=== PATIENT | male | born 1955 | race African-American/Black ===

== ENCOUNTER 2016-07-16 08:06 | Emergency (ER) | payer MEDICARE, MEDICAID ==
[~2016-07-16] VITALS: Ht 172.7 cm; Wt 88.5 kg
[~2016-07-16 08:06] MED LIST: APIX5TAB PO; ATOR10TA PO; BRIM5DRO EACHEYE; DORZ10DR11 EACHEYE; LEVO750T21 PO; TRAV5DRO EACHEYE
[2016-07-16] MEDS ORDERED: ASPIRIN 81 MG TAB.CHEW PO ONE (08:30)
[2016-07-16 08:42] LABS: BASOPHILS % (AUTO) 0.6 % (0.0-2.0); DIFF TOTAL % 100 %; EOSINOPHILS # (AUTO) 0.1 /CMM (0.0-0.7); EOSINOPHILS % (AUTO) 2.7 % (0.0-6.0); HEMATOCRIT 40 % (39-51); HEMOGLOBIN 13.1 g/dL (13.5-17.5); MEAN CORPUSCULAR HEMOGLOBIN 26 PG (26.0-33.0); MEAN CORPUSCULAR HGB CONC 33 g/dl (31.0-36.0); MEAN CORPUSCULAR VOLUME 81 fL (80-96); MONOCYTES # (AUTO) 0.9 /CMM (0.1-1.30); MONOCYTES % (AUTO) 17.5 % (2.0-12.0); NEUTROPHILS % (AUTO) 59.2 % (43.0-81.0); PLATELET COUNT (AUTO) 161 /CMM (150-450); RED BLOOD CELL COUNT(AUTO) 4.99 MIL/uL (4.5-6.0); WHITE BLOOD COUNT (AUTO) 5.1 K/uL (4.3-11.0)
[2016-07-16] MEDS ORDERED: ASPIRIN EC 81 MG TABLET.DR PO ONE (08:44)
[2016-07-16] MEDS ORDERED: ASPIRIN 81 MG TAB.CHEW ONE ×2 (08:44→08:47)
[2016-07-16 08:57] LABS: ANION GAP 13 (5-14); CALCIUM, SERUM 9.1 mg/dL (8.5-10.1); CARBON DIOXIDE 27 mmol/L (21-32); CHLORIDE 103 mmol/L (98-107); CREATININE 1.3 mg/dL (0.6-1.3); GFR 68 mL/min (>60); GLUCOSE 134 mg/dL (74-106); POTASSIUM 3.8 mmol/L (3.5-5.1); SODIUM SERUM 139 mmol/L (136-145); UREA NITROGEN, BLOOD 14 mg/dL (7-18)
[2016-07-16 09:00] LABS: INR 0.99 (0.87-1.13); PROTHROMBIN TIME 10.7 SECS (9.5-12.7); TROPONIN I < 0.017 ng/mL (0.00-0.056)
[2016-07-16 09:14] LABS: BAND % (MANUAL) 1 % (0.0-5.0); EOSINOPHILS % (MANUAL) 5 % (0-4); LYMPHOCYTES % (MANUAL) 14 % (16-48)
[2016-07-16 09:15] LABS: ANISOCYTOSIS 1+; PLATELET ESTIMATE ADEQUATE
[2016-07-16 09:29] LABS: ALANINE AMINOTRANSFERASE 75 U/L (12-78); ALBUMIN 3.8 g/dL (3.4-5.0); ASPARTATE AMINOTRANSFERASE 47 U/L (15-37); BILIRUBIN,DIRECT 0.1 mg/dL (0.0-0.2); BILIRUBIN,TOTAL 0.3 mg/dL (0.2-1.0); INDIRECT BILIRUBIN 0.2 mg/dL (0.0-1.1); TOTAL PROTEIN, SERUM 8.2 g/dL (6.4-8.2)
[2016-07-16] MEDS ORDERED: NITROGLYCERIN 0.4 MG/TAB BOTTLE ONE (10:48)
[2016-07-16] MEDS ORDERED: NITROGLYCERIN 0.4 MG/TAB BOTTLE SL ONE (11:00)
[2016-07-16 12:35] VITALS: BP 121/85
== END 2016-07-16 12:36 | disposition home or self-care (01) ==
LOC: ER 08:07
DX: R07.89 Other chest pain (principal); E78.00 Pure hypercholesterolemia, unspecified; I10 Essential (primary) hypertension; Z88.5 Allergy status to narcotic agent; Z91.013 Allergy to seafood; Z91.041 Radiographic dye allergy status
CPT/HCPCS: 36415; 71010; 80048; 80076; 83880; 84484 ×2; 85025; 85730; 93005 ×2; 99285; A4606; Z7610

== ENCOUNTER 2017-04-22 16:47 | Inpatient (IN) | payer MEDICARE, MEDICAID ==
[~2017-04-22] VITALS: Ht 172.7 cm; Wt 87.5 kg
--- NOTE | 2017-04-22 16:47 | NUR ---
L SIDED CP X 45 MIN TOP FLAVOR ATTENDANT RADIATING TO LEFT ARM. GOWNED PT . PLACED ON MONITOR. AWAITING MD ORDER
[2017-04-22 17:27] LABS: BASOPHILS % (AUTO) 0.5 % (0.0-2.0); EOSINOPHILS # (AUTO) 0.2 /CMM (0.0-0.7); EOSINOPHILS % (AUTO) 2.5 % (0.0-6.0); HEMATOCRIT 38 % (39-51); HEMOGLOBIN 12.3 g/dL (13.5-17.5); LYMPHOCYTES # (AUTO) 1.5 /CMM (0.8-4.8); LYMPHOCYTES % (AUTO) 21.7 % (20.0-44.0); MEAN CORPUSCULAR HEMOGLOBIN 28 PG (26.0-33.0); MEAN CORPUSCULAR HGB CONC 33 g/dl (31.0-36.0); MEAN CORPUSCULAR VOLUME 84 fL (80-96); MONOCYTES # (AUTO) 0.7 /CMM (0.1-1.30); NEUTROPHILS # (AUTO) 4.4 /CMM (1.8-8.9); NEUTROPHILS % (AUTO) 64.3 % (43.0-81.0); PLATELET COUNT (AUTO) 178 /CMM (150-450); RDW COEFFICIENT OF VARIATION 19.6 (11.5-15.0); RED BLOOD CELL COUNT(AUTO) 4.45 MIL/uL (4.5-6.0); WHITE BLOOD COUNT (AUTO) 6.8 K/uL (4.3-11.0)
[2017-04-22 17:32] LABS: CALCIUM, SERUM 8.9 mg/dL (8.5-10.1); CARBON DIOXIDE 26 mmol/L (21-32); CHLORIDE 110 mmol/L (98-107); CREATININE 1.1 mg/dL (0.6-1.3); GLUCOSE 123 mg/dL (74-106); POTASSIUM 3.9 mmol/L (3.5-5.1); PROTHROMBIN TIME 10.4 SECS (9.5-12.7); SODIUM SERUM 143 mmol/L (136-145); UREA NITROGEN, BLOOD 21 mg/dL (7-18)
--- NOTE | 2017-04-22 17:39 | NUR ---
FRONT END SOFTWARE ENGINEER AT BEDSIDE
[2017-04-22 17:41] LABS: TROPONIN I < 0.017 ng/mL (0.00-0.056)
--- NOTE | 2017-04-22 18:02 | NUR ---
RFA #22 IV ACCESS.
[2017-04-22] MEDS ORDERED: NITROGLYCERIN PACKET 1 GM PACKET ONE (18:15)
[2017-04-22] MEDS ORDERED: ASPIRIN 325 MG TABLET ONE (18:15)
[2017-04-22] MEDS ORDERED: ASPIRIN 325 MG TABLET PO ONE (18:30)
[2017-04-22] MEDS ORDERED: NITROGLYCERIN PACKET 1 GM PACKET TOP ONE (18:30)
[2017-04-22] MEDS ORDERED: METF500T4 PO (18:30)
--- NOTE | 2017-04-22 18:49 | NUR ---
gave report to [facility] telemetry room 304-[address] thomas
--- NOTE | 2017-04-22 18:55 | NUR ---
REPORT RECEIVED BY NESTOR LINDSEY FOR YURY. REPORT GIVEN TO OFFICE ANALYST PER NESTOR LINDSEY
[2017-04-22] MEDS ORDERED: IV NS 0.9% 1,000 ML IV PRN (19:05)
--- NOTE | 2017-04-22 19:18 | NUR ---
PT TRANSFERRED PER ACLS PROTOCOL TO [facility] BED 304-1
[2017-04-22] MEDS ORDERED: ONDANSETRON HCL/PF 4 MG/2 ML VIAL IVP PRN (19:30)
[2017-04-22] MEDS ORDERED: MAG HYDROX/AL HYDROX/SIMETH 30 ML UDC PO PRN (19:30)
[2017-04-22] MEDS ORDERED: Z GUARD REMEDY 2 OZ OINT TP PRN (19:30)
[2017-04-22] MEDS ORDERED: ZOLPIDEM TARTRATE 5 MG TABLET PO PRN (19:30)
[2017-04-22] MEDS ORDERED: HYDROCODONE/APAP 5/325MG 1 EACH TABLET PO PRN (19:30)
[2017-04-22] MEDS ORDERED: ACETAMINOPHEN 325 MG TABLET PO PRN (19:30)
[2017-04-22] MEDS ORDERED: MAGNESIUM HYDROXIDE 30 ML UDC PO PRN (19:30)
[2017-04-22 20:00] VITALS: BP 128/79
--- NOTE | 2017-04-22 20:00 | NUR ---
BOILING TUB OPERATOR NOTES Patient admitted to MS/Tele unit, palced on scratch polisher, in no apparent distress. Alert, and oriented x4, verbally responsive and able to make needs known. No SOB noted, skin is warm and dry to touch. Patient c/o chest pain radiating to his back and asked for a pain medication. Offered York but patient said he vomits when taking York He asked if he can have Morphine inj because that's what he takes before.. Called Dr Contreras and reported patient's status and Dr Contreras said did not approved Morphine inj and did not give any new orders. Spoke with patient and made aware of Dr Contreras's not ordering York. Charge nurse made aware. Routine admission done. Patient is cooperative with admission interview. Due med given as ordered. All needs attended. Provided a safe and comfortable environment. Will continue to monitor.
[2017-04-22] MEDS: LATANOPROST EYE DROP 0.005% 2.5 ML BOTTLE EACHEYE SCH (23:15)
[2017-04-23] VITALS: BP 131/80
[2017-04-23 04:00] VITALS: BP 113/73
[2017-04-23 06:00] VITALS: BP 129/77
--- NOTE | 2017-04-23 06:08 | NUR ---
RN END OF SHIFT REPORT No significant change in condition. Patient slept comfortably, no c/o chest pain, no SOB observed. All due meds given as ordered. Will continue to moniotr.
[2017-04-23 06:27] LABS: BASOPHILS % (AUTO) 0.6 % (0.0-2.0); EOSINOPHILS # (AUTO) 0.2 /CMM (0.0-0.7); HEMATOCRIT 35 % (39-51); HEMOGLOBIN 11.5 g/dL (13.5-17.5); LYMPHOCYTES # (AUTO) 1.5 /CMM (0.8-4.8); LYMPHOCYTES % (AUTO) 25.5 % (20.0-44.0); MEAN CORPUSCULAR HEMOGLOBIN 28 PG (26.0-33.0); MEAN CORPUSCULAR HGB CONC 33 g/dl (31.0-36.0); MEAN CORPUSCULAR VOLUME 84 fL (80-96); MONOCYTES # (AUTO) 0.8 /CMM (0.1-1.30); MONOCYTES % (AUTO) 12.9 % (2.0-12.0); NEUTROPHILS # (AUTO) 3.4 /CMM (1.8-8.9); PLATELET COUNT (AUTO) 150 /CMM (150-450); RDW COEFFICIENT OF VARIATION 19.4 (11.5-15.0); RED BLOOD CELL COUNT(AUTO) 4.18 MIL/uL (4.5-6.0)
[2017-04-23 06:38] LABS: CALCIUM, SERUM 8.4 mg/dL (8.5-10.1); CARBON DIOXIDE 25 mmol/L (21-32); CHLORIDE 112 mmol/L (98-107); GLUCOSE 134 mg/dL (74-106); MAGNESIUM 1.8 mg/dL (1.8-2.4); PHOSPHORUS 3.4 mg/dL (2.5-4.9); POTASSIUM 3.7 mmol/L (3.5-5.1); SODIUM SERUM 143 mmol/L (136-145); UREA NITROGEN, BLOOD 16 mg/dL (7-18)
--- NOTE | 2017-04-23 06:45 | NUR ---
RN NOTES Patient refused to be reconnected again to his IV fluid after going to the bathroom. Explained risks and benefits, verbalized understanding.
[2017-04-23 06:55] LABS: TROPONIN I < 0.017 ng/mL (0.00-0.056)
--- NOTE | 2017-04-23 07:20 | NUR ---
RN OPEN NOTES RECEIVED REPORT FROM BUSINESS PLANNER NURSE. WILL CONTINUE TO MONITOR AND ASSESS PATIENT THROUGHOUT MY SHIFT
--- NOTE | 2017-04-23 07:50 | NUR ---
DR RUSSELL AT BEDSIDE
[2017-04-23 08:00] VITALS: BP 114/71
--- NOTE | 2017-04-23 08:00 | NUR ---
PATIENT REFUSED TO TURN AND REPOSITION
[2017-04-23] MEDS: APIXABAN 5 MG TABLET PO SCH ×2 (08:16→17:25)
[2017-04-23] MEDS: METFORMIN 500 MG TABLET PO SCH ×2 (08:17→17:25)
[2017-04-23] MEDS: BRIMONIDINE TARTRATE OPHT SOLN 5 ML BOTTLE EACHEYE SCH ×2 (08:18→17:26)
[2017-04-23] MEDS: TIMOLOL MAL/DORZOLAM HCL OPHTH 10 ML BOTTLE EACHEYE SCH ×2 (08:18→17:25)
--- NOTE | 2017-04-23 08:20 | NUR ---
LEXISCAN STRESS TEST ORDERED BY B[facility]ON FOR 04/24N 8AM
[2017-04-23] MEDS: LOSARTAN POTASSIUM 50 MG TABLET PO SCH (08:31)
--- NOTE | 2017-04-23 10:00 | NUR ---
PATIENT REFUSED TO TURN AND REPOSITION Addendum: 04/23/17 at 1812 by ISMAEL COMBS RN WRONG PATIENT
--- NOTE | 2017-04-23 12:30 | NUR ---
PATIENT SIGNED LEXISCAN CONSENT. CONSENT PLACED IN THE CHART
--- NOTE | 2017-04-23 13:50 | NUR ---
DR GONZALES AT BEDSIDE
[2017-04-23 16:00] VITALS: BP 119/75
--- NOTE | 2017-04-23 17:00 | NUR ---
PATIENT REFUSED IV HYDRATION
[2017-04-23] MEDS: ATORVASTATIN 10 MG TABLET PO SCH (17:25)
--- NOTE | 2017-04-23 19:02 | NUR ---
RN CLOSING NOTES PATIENT IS ALERT AND ORIENTED TO NAME, PLACE AND TIME. NO SIGNS AND SYMPTOMS OF DISTRESS. IV SITE IS INTACT AND PATENT. REFUSE IV HYDRATION. BED IN LOW POSITION, LOCKED AND TWO SIDE RAILS ARE UP. CALL LIGHT WITHIN REACH. ALL NURSING CARE PROVIDED. STRESS TEST IN AM, NPO FROM MIDNIGHT. WILL ENDORSE TO PECAN HULLER NURSE
--- NOTE | 2017-04-23 19:25 | NUR ---
TELE/RN NOTES RECEIVED PT. LYING IN BED RESTING. PT. IS EASILY AROUSABLE TO NAME. AWAKE, ALERT AND ORIENTED X4. BREATHING EVEN AND UNLABORED ON ROOM AIR. NO SOB, RESPIRATORY DISTRESS OR COMPLAINTS OF PAIN NOTED AT THIS TIME. PT. WITH EXTERNAL LEAD APPLIER PRESENT AND INTACT. CURRENT RHYTHM = SINUS RHYTHM HR 66. PT. WITH RIGHT FOREARM 22 GAUGE IV SALINE LOCK PRESENT, PATENT AND INTACT. PT. REFUSING IV FLUID HYDRATION AT THIS TIME. PT. STATES HE DRINKS ENOUGH FLUIDS AND DOESN'T NEED THEM. BED LOCKED AND IN LOWEST POSITION, SIDE RAILS UP X2, CALL LIGHT WITHIN REACH, WILL CONTINUE TO MONITOR.
[2017-04-23 20:00] VITALS: BP 112/72
[2017-04-23] MEDS: LATANOPROST EYE DROP 0.005% 2.5 ML BOTTLE EACHEYE SCH (23:04)
--- NOTE | 2017-04-23 23:20 | NUR ---
TELE/RN NOTES PT. REFUSING TROPONIN BLOOD DRAW. PT. HAS NO COMPLAINTS OF CHEST PAIN AT THIS TIME. EDUCATED PT. ON IMPORTANCE OF MONITORING TROPONIN LEVEL. PT. VERBALIZED UNDERSTANDING AND CONTINUES TO REFUSE. WILL CONTINUE TO MONITOR.
[2017-04-24] VITALS: BP 112/69
[2017-04-24 04:00] VITALS: BP 112/74
--- NOTE | 2017-04-24 06:50 | NUR ---
TELE/RN NOTES PT. IS LYING IN BED RESTING. BREATHING EVEN AND UNLABORED ON ROOM AIR. NO SOB, RESPIRATORY DISTRESS OR COMPLAINTS OF PAIN NOTED AT THIS TIME. PT. WITH EXTERNAL MALT LIQUORS SALES SUPERVISOR PRESENT AND INTACT. CURRENT RHYTHM = SINUS RHYTHM HR 72. PT. WITH RIGHT FOREARM 22 GAUGE IV SALINE LOCK PRESENT, PATENT AND INTACT. PT. CONTINUES TO REFUSE IV FLUIDS. PT. REMAINS NPO SINCE MIDNIGHT PENDING STRESS TEST TODAY. ALL PT. NEEDS MET. ALL DUE MEDICATIONS GIVEN. BED LOCKED AND IN LOWEST POSITION, SIDE RAILS UP X2, CALL LIGHT WITHIN REACH, WILL ENDORSE TO DAYSHIFT NURSE FOR CONTINUITY OF CARE.
[2017-04-24 06:56] LABS: CALCIUM, SERUM 8.6 mg/dL (8.5-10.1); CARBON DIOXIDE 23 mmol/L (21-32); CHLORIDE 107 mmol/L (98-107); GLUCOSE 115 mg/dL (74-106); MAGNESIUM 1.8 mg/dL (1.8-2.4); PHOSPHORUS 3.6 mg/dL (2.5-4.9); POTASSIUM 3.8 mmol/L (3.5-5.1); SODIUM SERUM 139 mmol/L (136-145); UREA NITROGEN, BLOOD 14 mg/dL (7-18)
[2017-04-24 06:58] LABS: TROPONIN I < 0.017 ng/mL (0.00-0.056)
--- NOTE | 2017-04-24 07:37 | NUR ---
RN OPEN NOTES RECEIVED REPORT FROM GLASS PROCESSING WORKER NURSE. WILL CONTINUE TO MONITOR AND ASSESS PATIENT DURING MY SHIFT
[2017-04-24 08:00] VITALS: BP 108/76
--- NOTE | 2017-04-24 08:25 | NUR ---
PATIENT IS OFF THE FLOOR FOR STRESS TEST
[2017-04-24] MEDS ORDERED: REGADENOSON 0.4 MG/5 ML DISP.SYRIN IVP ONE (09:00)
--- NOTE | 2017-04-24 09:39 | NUR ---
PATIENT IS BACK TO UNIT FORM STRESS TEST. BREAKFAST FOOD TRAY ORDERED, MEDICATION WILL BE ADMINISTERED
[2017-04-24] MEDS: BRIMONIDINE TARTRATE OPHT SOLN 5 ML BOTTLE EACHEYE SCH ×2 (09:57→17:22)
[2017-04-24] MEDS: TIMOLOL MAL/DORZOLAM HCL OPHTH 10 ML BOTTLE EACHEYE SCH ×2 (09:58→17:22)
[2017-04-24] MEDS: METFORMIN 500 MG TABLET PO SCH ×2 (09:58→17:22)
[2017-04-24] MEDS: APIXABAN 5 MG TABLET PO SCH ×2 (09:58→17:22)
[2017-04-24] MEDS: LOSARTAN POTASSIUM 50 MG TABLET PO SCH (09:59)
[2017-04-24 10:15] LABS: CHOLESTEROL 193 mg/dL (<200); HDL CHOLESTEROL 36 mg/dL (40-60); LDL 102 mg/dL (0-99); TRIGLYCERIDES 253 mg/dL (30-150)
--- NOTE | 2017-04-24 10:42 | NUR ---
PATIENT IS OFF THE FLOOR FOR STEP 2 STRESS TEST
--- NOTE | 2017-04-24 11:12 | NUR ---
PATIENT IS BACK TO THE FLOOR FROM STRESS TEST 2ND STEP
[2017-04-24 16:00] VITALS: BP 110/68
[2017-04-24] MEDS: ATORVASTATIN 10 MG TABLET PO SCH (17:22)
--- NOTE | 2017-04-24 18:46 | NUR ---
RN CLOSING NOTES PATIENT IS ALERT AND ORIENTED TO NAME, PLACE AND TIME. NO SIGNS AND SYMPTOMS OF DISTRESS. IV SITE IS INTACT AND PATENT. BED IN LOW POSITION, LOCKED AND TWO SIDE RAILS ARE UP. CALL LIGHT WITHIN REACH. ALL NURSING CARE PROVIDED. POSSIBLE DC IN AM TO [facility]. WILL ENDORSE TO WEAVING TEACHER NURSE
--- NOTE | 2017-04-24 19:15 | NUR ---
MS/RN NOTES RECEIVED PT. LYING IN BED RESTING. PT. IS EASILY AROUSABLE TO NAME. AWAKE, ALERT AND ORIENTED X4. BREATHING EVEN AND UNLABORED ON ROOM AIR. NO SOB, RESPIRATORY DISTRESS OR COMPLAINTS OF PAIN NOTED AT THIS TIME. PT. WITH RIGHT FOREARM 22 GAUGE IV SALINE LOCK PRESENT, PATENT AND INTACT. PER DAYSHFIT NURSE PT. IS POSSIBLE DC IN AM TO [facility]. BED LOCKED AND IN LOWEST POSITION, SIDE RAILS UP X2, CALL LIGHT WITHIN REACH, WILL CONTINUE TO MONITOR.
[2017-04-24 20:22] VITALS: BP 101/65
[2017-04-24] MEDS: LATANOPROST EYE DROP 0.005% 2.5 ML BOTTLE EACHEYE SCH (21:52)
--- NOTE | 2017-04-25 06:13 | NUR ---
MS/RN NOTES PT. IS LYING IN BED RESTING. BREATHING EVEN AND UNLABORED ON ROOM AIR. NO SOB, RESPIRATORY DISTRESS OR COMPLAINTS OF PAIN NOTED AT THIS TIME AND THROUGHOUT SHIFT. PT. WITH RIGHT FOREARM 22 GAUGE IV SALINE LOCK PRESENT, PATENT AND INTACT. ALL PT. NEEDS MET. ALL DUE MEDICATIONS GIVEN. BED LOCKED AND IN LOWEST POSITION, SIDE RAILS UP X2, CALL LIGHT WITHIN REACH, WILL ENDORSE TO DAYSHIFT NURSE FOR CONTINUITY OF CARE.
--- NOTE | 2017-04-25 07:00 | NUR ---
MS RN Notes Initial: Patient resting in bed. Patient alert oriented x4. Nonlabored breathing on room air. No signs of distress noted. IV site patent and intact. Bed in lowest locked position. Call light within reach. Will continue to monitor
[2017-04-25 08:00] VITALS: BP 110/70
[2017-04-25] MEDS: BRIMONIDINE TARTRATE OPHT SOLN 5 ML BOTTLE EACHEYE SCH (08:44)
[2017-04-25 08:46] VITALS: BP 110/70
[2017-04-25] MEDS: LOSARTAN POTASSIUM 50 MG TABLET PO SCH (08:46)
[2017-04-25] MEDS: APIXABAN 5 MG TABLET PO SCH (08:47)
[2017-04-25] MEDS: METFORMIN 500 MG TABLET PO SCH (08:47)
[2017-04-25] MEDS: TIMOLOL MAL/DORZOLAM HCL OPHTH 10 ML BOTTLE EACHEYE SCH (08:50)
--- NOTE | 2017-04-25 13:46 | NUR ---
RN CLOSING NOTES: PATIENT DISCHARGED TO [facility] PER MD ORDERS. PATIENT STABLE. NON-LABORED BREATHING ON ROOM AIR. PATIENT DENIES CHEST PAIN. NO SIGNS OF DISTRESS. IV ACCESS TAKEN OUT. VALUABLES ACCOUNTED FOR. PNEUMOCOCCAL VACCINE AND FLU VACCINE REFUSED BY PATIENT. ACCORDING TO PATIENT, HE HAS RECEIVED THE PNEUMOCOCCAL VACCINE. DR NEAL APPROVED THAT PATIENT CONTINUES TAKING TAMULOSIN 0.4 MG CAPSULE, 1 TABLET AT BEDTIME, WELL FINASTERIDE 5 MG, 1 TABLET DAILY. MEDICATIONS WRITTEN ON PATIENT'S CURRENT MED LIST. AMBULANCE PICKED UP PATIENT AT 13:20. I WAS UNABLE TO GIVE REPORT BEFORE. CALLED 3 TIMES. HOWEVER, NURSING SENIOR COST ANALYST WAS UNAVAILABLE. SPOKE TO MALTED MILK MASHER WHO WAS AWARE THAT PATIENT IS BEING ADMITTED TO THEIR FACILITY. GAMA, NURSING SENIOR COST ANALYST, JUST CALLED ME. I WAS ABLE TO GIVE REPORT TO HER.
== END 2017-04-25 13:22 | DRG 203 ==
LOC: ER 16:51 → TELE 19:22 → MED 04-24 10:45
PROVIDERS: ADMIT Internal Medicine; ATTEND Internal Medicine
DX: M94.0 Chondrocostal junction syndrome [Tietze] (principal); I82.812 Embolism and thrombosis of superficial veins of left lower extremity; I10 Essential (primary) hypertension; E78.5 Hyperlipidemia, unspecified; D63.8 Anemia in other chronic diseases classified elsewhere; E11.9 Type 2 diabetes mellitus without complications; I25.10 Atherosclerotic heart disease of native coronary artery without angina pectoris; Z86.711 Personal history of pulmonary embolism; E66.9 Obesity, unspecified; Z68.29 Body mass index [BMI] 29.0-29.9, adult; Z95.1 Presence of aortocoronary bypass graft; Z86.718 Personal history of other venous thrombosis and embolism; Z79.01 Long term (current) use of anticoagulants; R52 Pain, unspecified
CPT/HCPCS: 36415; 71010-TC; 80048-TC; 80061-TC; 80305; 83735-TC; 84100-TC; 84484-TC; 85025-TC; 85730-TC; 87081-TC; 93307-TC; 93970-TC; A4606; A9502; G0480; J2785; J7030; J7042; Z7610

== ENCOUNTER 2017-08-31 18:24 | Inpatient (IN) | payer MEDICARE, MEDICAID ==
[~2017-08-31] VITALS: Ht 172.7 cm; Wt 86.6 kg
--- NOTE | 2017-08-31 | NUR ---
RN NOTE RECEIVED PATIENT FROM ER, PATIENT IS ALERT/ORIENTED X 2, ABLE TO COMMUNICATE HIS NEEDS, ADMITTING DX CHEST PAIN, PAIN LEVEL 7/10, MEDS GIVEN AND EFFECTICE, NO RESPIRATORY DISTRESS NOTED, SINUS RYTHM ON THE MONITOR ,PATIENT IS AMBULATORY, IV IN LEFT HAND 20 GAUGE, FLUSHES WELL, NO S/S OF INFECTION/INFILTRATION NOTED, ALL SAFETY MEASURES TAKEN, BED IN THE LOWEST POSITION, CALL LIGHT WITHIN REACH, SIDE RAILS UP X 2, EDUCATED PATIENT ABOUT CALL LIGHT AND CALL IF PATIENT NEEDS TO USE BATHROOM, PATIENT VERBALIZED UNDERSTANDING
[~2017-08-31 18:24] MED LIST changes: -LEVO750T21 PO; +METF500T4 PO
--- NOTE | 2017-08-31 18:24 | NUR ---
A/OX4, PT IS C/O MID AND LEFT SIDED CP RADIATES TO NECK AND LT ARM STARTED 1 HR AGO. PT STATES CHEST FEELS HEAVY AND FEELS LIKE SOMETHING SITTING ON HIS CHEST. PT IS C/O HEADACHE. GOWNED AND PLACED ON CONT MONITORING. VSS, SKIN IS WARM AND NON DIAPHORETOC. RR EVEN AND UNLABORED. ALL NEEDS ARE ATTENDED, KEPT COMFORTABLE. PENDING ER MD EVALUATION
[2017-08-31] MEDS ORDERED: ONDANSETRON HCL/PF 4 MG/2 ML VIAL ONE (18:47)
[2017-08-31] MEDS ORDERED: MORPHINE SULFATE INJ 4 MG/ML DISP.SYRIN ONE ×3 (18:47→20:58)
[2017-08-31] MEDS ORDERED: ASPIRIN 81 MG TAB.CHEW ONE (18:48)
[2017-08-31 18:57] LABS: BASOPHILS # (AUTO) 0.1 /CMM (0.0-0.2); BASOPHILS % (AUTO) 1.1 % (0.0-2.0); EOSINOPHILS # (AUTO) 0.2 /CMM (0.0-0.7); EOSINOPHILS % (AUTO) 2.1 % (0.0-6.0); HEMATOCRIT 45 % (39-51); LYMPHOCYTES # (AUTO) 1.8 /CMM (0.8-4.8); MEAN CORPUSCULAR HEMOGLOBIN 29 PG (26.0-33.0); MEAN CORPUSCULAR HGB CONC 33 g/dl (31.0-36.0); MEAN CORPUSCULAR VOLUME 85 fL (80-96); MONOCYTES # (AUTO) 0.6 /CMM (0.1-1.30); MONOCYTES % (AUTO) 6.6 % (2.0-12.0); NEUTROPHILS # (AUTO) 6.7 /CMM (1.8-8.9); NEUTROPHILS % (AUTO) 71.2 % (43.0-81.0); PLATELET COUNT (AUTO) 173 /CMM (150-450); RDW COEFFICIENT OF VARIATION 15.7 (11.5-15.0); RED BLOOD CELL COUNT(AUTO) 5.28 MIL/uL (4.5-6.0); WHITE BLOOD COUNT (AUTO) 9.4 K/uL (4.3-11.0)
[2017-08-31] MEDS ORDERED: MORPHINE SULFATE INJ 2 MG/ML DISP.SYRIN IV ONE ×2 (19:00→21:00)
[2017-08-31] MEDS ORDERED: ONDANSETRON HCL/PF 4 MG/2 ML VIAL IVP ONE (19:00)
[2017-08-31] MEDS ORDERED: IV NS 0.9% 1,000 ML BAG IV ONE (19:00)
[2017-08-31] MEDS ORDERED: ASPIRIN 81 MG TAB.CHEW PO ONE (19:00)
--- NOTE | 2017-08-31 19:01 | NUR ---
IV ACCESS STARTED. BLOOD DRAWN FOR LABS. MEDICATED ORDERED.
--- NOTE | 2017-08-31 19:05 | NUR ---
RECEIVED REPORT FROM NESTOR MOORE. RADIOLOGY AT BEDSIDE FOR CXR
--- NOTE | 2017-08-31 19:08 | NUR ---
PT STATES HAD PREVIOUS CT WITH CONTRAST AND ALLERGIC TO IODINE. AWARE.
[2017-08-31 19:10] LABS: INR 0.95 (0.85-1.15)
[2017-08-31 19:12] LABS: ALANINE AMINOTRANSFERASE 20 U/L (12-78); ALBUMIN 3.9 g/dL (3.4-5.0); ALKALINE PHOSPHATASE 79 U/L (46-116); ASPARTATE AMINOTRANSFERASE 20 U/L (15-37); BILIRUBIN,DIRECT 0.1 mg/dL (0.0-0.2); BILIRUBIN,TOTAL 0.6 mg/dL (0.2-1.0); CARBON DIOXIDE 23 mmol/L (21-32); CHLORIDE 102 mmol/L (98-107); CREATININE 1.2 mg/dL (0.6-1.3); GLUCOSE 117 mg/dL (74-106); POTASSIUM 4.1 mmol/L (3.5-5.1); SODIUM SERUM 136 mmol/L (136-145); TOTAL PROTEIN, SERUM 8.5 g/dL (6.4-8.2); UREA NITROGEN, BLOOD 16 mg/dL (7-18)
[2017-08-31 19:14] LABS: TROPONIN I < 0.017 ng/mL (0.00-0.056)
--- NOTE | 2017-08-31 19:18 | NUR ---
RONALD FROM RADIOLOGY FOR VQ SCAN PAGED PER RADIOLOGY.
--- NOTE | 2017-08-31 21:45 | NUR ---
PT TO VQ SCAN WITH RADIOLOGY RONALD
--- NOTE | 2017-08-31 22:23 | NUR ---
PT RETURNED FROM VQ SCAN
--- NOTE | 2017-08-31 22:27 | NUR ---
TELE 107 FARZANA
[2017-08-31] MEDS ORDERED: Z GUARD REMEDY 2 OZ OINT TP PRN (23:00)
[2017-08-31] MEDS ORDERED: ONDANSETRON HCL/PF 4 MG/2 ML VIAL IVP PRN (23:00)
[2017-08-31] MEDS ORDERED: NITROGLYCERIN 0.4 MG/TAB BOTTLE SL PRN (23:00)
[2017-08-31] MEDS ORDERED: ACETAMINOPHEN 325 MG TABLET PO PRN (23:00)
[2017-08-31] MEDS ORDERED: MAG HYDROX/AL HYDROX/SIMETH 30 ML UDC PO PRN (23:00)
[2017-08-31] MEDS ORDERED: HYDROCODONE/APAP 5/325MG 1 EACH TABLET PO PRN (23:00)
[2017-08-31] MEDS ORDERED: MAGNESIUM HYDROXIDE 30 ML UDC PO PRN (23:00)
--- NOTE | 2017-08-31 23:08 | NUR ---
REPORT GIVEN TO NESTOR MONTERO ON BEHALD OF NESTOR JIMÉNEZ FOR YURY / BED 107
--- NOTE | 2017-08-31 23:52 | NUR ---
PT TRANSFERRED PER ACLS PROTOCOL.
[2017-09-01] VITALS (9 sets, daily range): BP systolic 100–138; BP diastolic 64–75
[2017-09-01] MEDS ORDERED: MORPHINE SULFATE INJ 4 MG/ML DISP.SYRIN ONE ×2 (00:44→22:26)
[2017-09-01] MEDS: MORPHINE SULFATE INJ 2 MG/ML DISP.SYRIN IV PRN ×2 (01:16→22:38)
--- NOTE | 2017-09-01 01:20 | NUR ---
RN NOTE ADMINISTER MORPHINE 2 MG PER MD ORDER, PHARMAVY VERIFIED, CHARGE NURSE OVERRIDED 4MG, 2MG WAS WASTED, WAS NOT ABLE TO SCAN BECAUSE I WAS SCANNING IT SHOWS 4MG. CHARGE NURSE IS AWARE
[2017-09-01] MEDS ORDERED: DEXTROSE 50%-WATER 50 ML DISP.SYRIN IV PRN (04:00)
[2017-09-01 06:47] LABS: BASOPHILS % (AUTO) 0.5 % (0.0-2.0); EOSINOPHILS # (AUTO) 0.2 /CMM (0.0-0.7); HEMATOCRIT 40 % (39-51); HEMOGLOBIN 13.5 g/dL (13.5-17.5); LYMPHOCYTES # (AUTO) 1.6 /CMM (0.8-4.8); LYMPHOCYTES % (AUTO) 24.7 % (20.0-44.0); MEAN CORPUSCULAR HEMOGLOBIN 29 PG (26.0-33.0); MEAN CORPUSCULAR HGB CONC 34 g/dl (31.0-36.0); MEAN CORPUSCULAR VOLUME 87 fL (80-96); MONOCYTES # (AUTO) 0.7 /CMM (0.1-1.30); MONOCYTES % (AUTO) 11.7 % (2.0-12.0); NEUTROPHILS # (AUTO) 3.8 /CMM (1.8-8.9); NEUTROPHILS % (AUTO) 60.1 % (43.0-81.0); PLATELET COUNT (AUTO) 150 /CMM (150-450); RED BLOOD CELL COUNT(AUTO) 4.59 MIL/uL (4.5-6.0); WHITE BLOOD COUNT (AUTO) 6.4 K/uL (4.3-11.0)
[2017-09-01 06:55] LABS: CALCIUM, SERUM 8.6 mg/dL (8.5-10.1); CREATININE 1.2 mg/dL (0.6-1.3); MAGNESIUM 2.1 mg/dL (1.8-2.4); PHOSPHORUS 3.6 mg/dL (2.5-4.9); POTASSIUM 3.6 mmol/L (3.5-5.1)
--- NOTE | 2017-09-01 07:05 | NUR ---
RN NOTE NO CHANGES DURING MY SHIFT, PAIN IS WELL CONTROLLED WITH PAIN MEDICATION, ASLEEP BUT EASILY AWAKENED, NO RESPIRATORY DISTRESS NOTED, ALL SAFETY MEASURES TAKEN, CALL LIGHT WITHIN REACH, ALL BELONGINGS WITHIN REACH, INSTRUCTED PATIENT TO USE CALL LIGHT WHEN WANT TO USE BATHROOM, SIDE RAILS UP X 2, WILL ENDORSE TO AM SHIFT
[2017-09-01 07:18] LABS: THYROID STIMULATING HORMONE 3.85 uIU/mL (0.358-3.74)
[2017-09-01] MEDS: BLOOD SUGAR DIAGNOSTIC 1 EACH STRIP IN SCH ×3 (07:46→17:57)
[2017-09-01] MEDS: APIXABAN 5 MG TABLET PO SCH ×2 (08:20→17:57)
[2017-09-01] MEDS: METFORMIN 500 MG TABLET PO SCH ×2 (08:20→17:00)
--- NOTE | 2017-09-01 09:00 | NUR ---
RN NOTE: (INITIAL) PATIENT RECEIVED ALERT AWAKE ORIENTED X4. ON ROOM AIR, BREATHING PATTERN REGULAR & UNLABORED. DENIES CHEST PAIN & DISCOMFORT AT THIS TIME. ON TELE MONITOR SINUS RHYTHM. AMBULATORY. SAFETY MEASURES OBSERVED. CALL LIGHT WITHIN REACH. WILL CONTINUE TO MONITOR.
[2017-09-01] MEDS ORDERED: TRAMADOL HCL 50 MG TABLET PO PRN (11:00)
[2017-09-01] MEDS ORDERED: diphenhydrAMINE HCL 50 MG CAPSULE PO ONE (11:30)
[2017-09-01] MEDS ORDERED: methylPREDNISolone SOD SUCC 125 MG/2ML VIAL IV ONE (11:30)
[2017-09-01] MEDS: METOPROLOL TARTRATE 50 MG TABLET PO SCH ×2 (11:58→18:05)
[2017-09-01] MEDS ORDERED: METOPROLOL TARTRATE INJ 5 MG/5 ML AMPUL IVP ONE (12:00)
[2017-09-01] MEDS ORDERED: diphenhydrAMINE HCL 50 MG/ML VIAL IV ONE (12:00)
--- NOTE | 2017-09-01 13:09 | NUR ---
RN NOTE: 1130: PATIENT NOTED WITH C/O CHEST PAIN 7/10, RADIATING TO LEFT ARM & NECK. VITAL SIGNS TAKEN, WNL, DOCUMENTED. DR. CHAVARRIA AWARE THAT MORPHINE IS NOT AVAILABLE IN PHARMACY. 1200: PATIENT ASSESSED BY DR. CHAVARRIA AT BEDSIDE. RECEIVED NEW ORDERS FOR TRAMADOL 50MG PO Q6 PRN. PATIENT SAID HE WILL BE FINE WITH TRAMADOL, HE IS ONLY ALLERGIC TO HYDROMORPHONE. SEEN BY DR. RUSSELL AT BEDSIDE. PLANNED TO CT ANGIO PROCEDURE. EXPLAINED BY DR. RUSSELL TO THE PATIENT. SOLU-MEDROL & BENEDRYL IV GIVEN TO THE PATIENT ORDERED. LOPRESSOR NOT GIVEN PER ALVARADO CHARGE NURSE, WILL BE GIVEN IN LAB BY ASSIGNED RN.
--- NOTE | 2017-09-01 13:18 | NUR ---
RN NOTE: OFFERED TRAMADOL PO MEDICATION FOR PAIN, PATIENT REFUSED AT THIS TIME. WILL CONTINUE TO MONITOR.
[2017-09-01] MEDS ORDERED: IOHEXOL-350 100 ML VIAL IV ONE (15:54)
[2017-09-01] MEDS: TIMOLOL MAL/DORZOLAM HCL OPHTH 10 ML BOTTLE EACHEYE SCH (17:00)
[2017-09-01] MEDS ORDERED: *INSULIN REGULAR(HUMULIN R)HUM 100 UNIT/ML VIAL SQ PRN (17:30)
[2017-09-01] MEDS ORDERED: INSULIN REGULAR, HUMAN 100 UNIT/ML 3 ML VIAL SQ PRN (17:30)
[2017-09-01] MEDS: BRIMONIDINE TARTRATE OPHT SOLN 5 ML BOTTLE EACHEYE SCH (17:57)
[2017-09-01] MEDS ORDERED: ATORVASTATIN 10 MG TABLET PO SCH (18:00)
--- NOTE | 2017-09-01 18:16 | NUR ---
RN NOTE: S/P CT ANGIOGRAM HEART WITH CONTRAST, VITAL SIGNS WNL. NO S/S OF ALLERGIC RXN NOTED. RECEIVED ORDERS TO HOLD METFORMIN UNTIL 09/03/17 , 1630 & START INSULIN SLIDING SCALE MODERATE. ORDERS NOTED & CARRIED OUT. COSOPT EYE DROPS NOT GIVEN DUE TO NOT AVAILABLE AT THIS TIME. WILL ADMINISTER WHEN READY. INSULIN SLIDING SCALE NOT COVERED AT DINNER TIME DUE TO PATIENT REFUSED. PT VERBALIZE UNDERSTANDING. EDUCATION PROVIDED.
--- NOTE | 2017-09-01 19:35 | NUR ---
MOTION PICTURE NARRATOR OPENING NOTES RECEIVED PT ALERT, AWAKE, VERBALLY RESPONSIVE. ON ROOM AIR, RESPIRATIONS EVEN, UNLABORED, NO APPARENT DISTRESS NOTED. DENIES ANY PAIN OR DISCOMFORT AT THIS TIME.SR 76. IV SITE JOVANNI INTACT, PATENT. CALL LIGHT WITHIN REACH. ATTENDED ALL NEEDS. WILL CONTINUE TO MONITOR ACCORDINGLY.
[2017-09-01] MEDS ORDERED: LATANOPROST EYE DROP 0.005% 2.5 ML BOTTLE EACHEYE SCH (22:00)
--- NOTE | 2017-09-01 22:00 | NUR ---
RN NOTE CHECKED BLOOD GLUCOSE 232 PT STATED THAT HE JUST ATE SANDWICH, REFUSED INSULIN TO BE GIVEN AT THIS TIME, OFFERED X 3, EXPLAINED BENEFITS,REFUSED,WILL CONTINUE TO MONITOR.
[2017-09-02] VITALS: BP 98/62
--- NOTE | 2017-09-02 | NUR ---
RN NOTE BP 98/62 HR 70.LOPRESSOR HELD.PT ALERT, AWAKE, VERBALLY RESPONSIVE. WILL CONTINUE TO MONITOR.
[2017-09-02] MEDS: BLOOD SUGAR DIAGNOSTIC 1 EACH STRIP IN SCH ×3 (00:04→12:14)
[2017-09-02 00:20] VITALS: BP 98/62
[2017-09-02] MEDS ORDERED: MORPHINE SULFATE INJ 4 MG/ML DISP.SYRIN ONE (03:55)
[2017-09-02 04:00] VITALS: BP 121/78
[2017-09-02] MEDS: MORPHINE SULFATE INJ 2 MG/ML DISP.SYRIN IV PRN (04:02)
[2017-09-02] MEDS: INSULIN REGULAR, HUMAN 100 UNIT/ML 3 ML VIAL SQ PRN ×2 (05:52→11:58)
[2017-09-02] MEDS: METOPROLOL TARTRATE 50 MG TABLET PO SCH ×2 (06:00)
[2017-09-02 06:19] VITALS: BP 121/78
--- NOTE | 2017-09-02 06:49 | NUR ---
PRODUCT MANAGEMENT CONSULTANT NOTES PT AWAKE, ON ROOM AIR, DENIES ANY PAIN OR DISCOMFORT. REFUSED TO TAKE METOPROLOL THIS MORNING, OFFERED X3, EXPLAINED BENEFITS, REFUSING. SR 72 DENIES ANY PAIN OR DISCOMFORT AT THIS TIME. CALL LIGHT WITHIN REACH, ATTENDED ALL NEEDS. WILL CONTINUE TO MONITOR ACCORDINGLY..
--- NOTE | 2017-09-02 07:25 | NUR ---
PALS SPECIALIST NOTES RECEIVED PATIENT IN BED RESTING, A/O X4. NO ACUTE DISTRESS, NO SOB NOTED. DENIES PAIN OR DISCOMFORT AT THIS TIME. IV SITE INTACT AND PATENT. ON TELEMONITOR SR 99. KEPT PATIENT SAFE AND COMFORTABLE. BED LOCKED/LOW POSITION, SIDERAILS UPX2, CALL LIGHT IN REACH. WILL CONTINUE TO MONITOR ACCORDINGLY.
--- NOTE | 2017-09-02 08:02 | NUR ---
RN NOTES PATIENT REFUSED VS TO BE TAKEN, YELLED "GET OUT OF HERE MAN!!". INFORMED COMPANY ACCOUNTANT. WILL RECHECKED WHEN PATIENT IS CALM.
[2017-09-02] MEDS: BRIMONIDINE TARTRATE OPHT SOLN 5 ML BOTTLE EACHEYE SCH (08:43)
[2017-09-02] MEDS: APIXABAN 5 MG TABLET PO SCH (08:45)
[2017-09-02] MEDS: TIMOLOL MAL/DORZOLAM HCL OPHTH 10 ML BOTTLE EACHEYE SCH (09:00)
--- NOTE | 2017-09-02 10:02 | NUR ---
RN NOTES COSOPT EYE DROPS NOT AVAILABLE PER PHARMACY
[2017-09-02] MEDS ORDERED: MORPHINE SULFATE INJ 4 MG/ML DISP.SYRIN IV PRN (12:00)
--- NOTE | 2017-09-02 12:05 | NUR ---
RN NOTES PULLED OUT NORCO FROM OMNICELL, PATIENT WANTED MORPHINE, WASTED NORCO WITNESSED BY NESTOR ARMANDO.
[2017-09-02 12:11] VITALS: BP 118/71
--- NOTE | 2017-09-02 14:00 | NUR ---
RN NOTES PATIENT CLAIMING THAT THE HOUSEKEEPING FROM YESTERDAY THREW THE SOAP THAT HE BOUGHT ON THE SINK, PATIENT ASKING FOR A REFUND OF $4.50. NOTIFIED PRICING COORDINATOR, FURNITURE INSTALLER MADE AWARE.
--- NOTE | 2017-09-02 14:20 | NUR ---
HEAD OF HUMAN RESOURCES NOTES DISCHARGED PATIENT IN STABLE CONDITION ACCOMPANIED BY RN TO THE [facility]. DISCHARGE INSTRUCTIONS DONE. ALL BELONGINGS RETURNED. PATIENT REFUSED TO SIGN DISCHARGE PAPERWORK AND BELONGINGS FORM. IV REMOVED, APPLIED PRESSURE, NO BLEEDING, NO COMPLICATIONS. REMOVED NAME BAND. TELEBOX RETURNED TO NURSES STATION. Addendum: 09/02/17 at 1606 by JENNIFER HUANG NURSING COREMAKER BENCH GAVE $5, PATIENT AGREED AND RECEIVED THE MONEY AND LEFT THE HOSPITAL.
== END 2017-09-02 14:30 | disposition home or self-care (01) | DRG 206 ==
LOC: ER 18:25 → TELE1 23:04 → MEDSG1 09-02 10:13
PROVIDERS: ADMIT Nurse Practitioner Acute Care; ATTEND Nurse Practitioner Acute Care
DX: M94.0 Chondrocostal junction syndrome [Tietze] (principal); E11.9 Type 2 diabetes mellitus without complications; E78.5 Hyperlipidemia, unspecified; Z86.711 Personal history of pulmonary embolism; Z82.49 Family history of ischemic heart disease and other diseases of the circulatory system; N40.0 Benign prostatic hyperplasia without lower urinary tract symptoms; I10 Essential (primary) hypertension; H40.9 Unspecified glaucoma; Z87.440 Personal history of urinary (tract) infections; Z91.041 Radiographic dye allergy status; Z88.5 Allergy status to narcotic agent; Z91.013 Allergy to seafood; Z79.84 Long term (current) use of oral hypoglycemic drugs; Z79.899 Other long term (current) drug therapy; Z98.890 Other specified postprocedural states
CPT/HCPCS: 36415; 71045-TC; 75574; 78582; 80048-TC; 80061-TC; 80076-TC; 82962-TC; 83735-TC; 84100-TC; 84443-TC; 84484-TC; 85025-TC; 85730-TC; 87081-TC; A4606; A9540; A9567; J1200; J1815; J2270; J2405; J2930; J7030; Q0163; Z7610

== ENCOUNTER 2017-12-22 06:46 | Emergency (ER) | payer MEDICARE, MEDICAID ==
[~2017-12-22] VITALS: Ht 172.7 cm; Wt 87.5 kg
[~2017-12-22 06:46] MED LIST changes: +METF-440 PO; -METF500T4 PO
--- NOTE | 2017-12-22 06:46 | NUR ---
BBSELF C/C CP SINCE 03/22 PRESSURE LIKE RADIATING TO LEFT NECK. -N/V -DIAPHORESIS. PT STATES "I AM FADING OUT MAN. MY VISION IS BLURRY. I HAVE A HX OF PE". PT IS HYPERTENSIVE BUT OTHERWISE VSS. PT IS ALERT AND ORIENTED AT THIS TIME ABLE TO MAKE NEEDS KNOWN. WILL CONTINUE TO MONITOR FOR ANY CHANGES DURING THE SHIFT.
--- NOTE | 2017-12-22 06:47 | NUR ---
ER AT BEDSIDE FOR EVAL
--- NOTE | 2017-12-22 06:53 | NUR ---
EKG AT BEDSIDE
[2017-12-22] MEDS ORDERED: ASPIRIN 81 MG TAB.CHEW ONE (07:12)
--- NOTE | 2017-12-22 07:14 | NUR ---
COMPOUND WORKER AT BEDSIDE
[2017-12-22] MEDS ORDERED: ASPIRIN 81 MG TAB.CHEW PO ONE (07:30)
[2017-12-22 07:57] LABS: BASOPHILS % (AUTO) 0.3 % (0.0-2.0); EOSINOPHILS % (AUTO) 2.2 % (0.0-6.0); HEMATOCRIT 36 % (39-51); HEMOGLOBIN 11.9 g/dL (13.5-17.5); LYMPHOCYTES # (AUTO) 1.1 /CMM (0.8-4.8); LYMPHOCYTES % (AUTO) 19.3 % (20.0-44.0); MEAN CORPUSCULAR HGB CONC 33 g/dl (31.0-36.0); MEAN CORPUSCULAR VOLUME 88 fL (80-96); MONOCYTES # (AUTO) 0.6 /CMM (0.1-1.30); MONOCYTES % (AUTO) 10.4 % (2.0-12.0); NEUTROPHILS # (AUTO) 3.8 /CMM (1.8-8.9); NEUTROPHILS % (AUTO) 67.8 % (43.0-81.0); PLATELET COUNT (AUTO) 189 /CMM (150-450); RDW COEFFICIENT OF VARIATION 15.3 (11.5-15.0); RED BLOOD CELL COUNT(AUTO) 4.14 MIL/uL (4.5-6.0); WHITE BLOOD COUNT (AUTO) 5.6 K/uL (4.3-11.0)
[2017-12-22] MEDS ORDERED: RANO500T3 PO (07:59)
[2017-12-22] MEDS ORDERED: TAMS-12 PO (07:59)
[2017-12-22] MEDS ORDERED: METF-442 PO (07:59)
[2017-12-22 08:03] LABS: CALCIUM, SERUM 8.4 mg/dL (8.5-10.1); CARBON DIOXIDE 21 mmol/L (21-32); CHLORIDE 105 mmol/L (98-107); GLUCOSE 121 mg/dL (74-106); POTASSIUM 3.9 mmol/L (3.5-5.1); SODIUM SERUM 138 mmol/L (136-145); UREA NITROGEN, BLOOD 14 mg/dL (7-18)
[2017-12-22 08:10] LABS: TROPONIN I < 0.017 ng/mL (0.00-0.056)
[2017-12-22 08:16] LABS: B-TYPE NATRIURETIC PEPTIDE 54 PG/ML (0-125)
[2017-12-22 08:27] LABS: INR 1.01 (0.87-1.13)
--- NOTE | 2017-12-22 08:43 | NUR ---
MD at bedside with ultrasound IV insertion. 20g LAC good flush/ good blood return.
--- NOTE | 2017-12-22 08:46 | NUR ---
TELE 321.1
[2017-12-22] MEDS ORDERED: FAMOTIDINE/PF INJ 20 MG/2 ML VIAL IV ONE ×2 (09:00→09:08)
[2017-12-22] MEDS ORDERED: methylPREDNISolone SOD SUCC 125 MG/2ML VIAL IV ONE (09:00)
[2017-12-22] MEDS ORDERED: diphenhydrAMINE HCL 50 MG/ML VIAL IV ONE (09:00)
[2017-12-22] MEDS ORDERED: methylPREDNISolone SOD SUCC 125 MG/2ML VIAL ONE (09:07)
[2017-12-22] MEDS ORDERED: diphenhydrAMINE HCL 50 MG/ML VIAL ONE (09:07)
--- NOTE | 2017-12-22 09:20 | NUR ---
MEDS GIVEN PER MD ORDER. MD IS AWARE PT IS ALLERGIC TO CONTRAST.
[2017-12-22] MEDS ORDERED: IOHEXOL-350 100 ML VIAL IV ONE (09:34)
[2017-12-22] MEDS ORDERED: IV NS 0.9% 500 ML IV ONE (09:35)
[2017-12-22] MEDS ORDERED: CT SWABBABLE VALVE TRANS SET 1 EA INFUS.SET MC ONE (09:35)
--- NOTE | 2017-12-22 09:45 | NUR ---
PT TO CT SCAN
[2017-12-22] MEDS ORDERED: LEVOFLOXACIN (500MG) 500 MG TABLET ONE (12:28)
[2017-12-22] MEDS ORDERED: LEVOFLOXACIN (500MG) 500 MG TABLET PO ONE (12:30)
[2017-12-22 13:08] VITALS: BP 135/68
--- NOTE | 2017-12-22 13:10 | NUR ---
Patient discharged to home in stable condition. verbal after care instructions given. Patient verbalizes understanding of instruction.IV removed. Catheter intact and site benign. Pressure and 4x4 applied to site. No bleeding noted. pt refused prescriptions and dc instructions. ambulatory with steady gait
== END 2017-12-22 13:09 | disposition home or self-care (01) ==
LOC: ER 06:51
DX: R07.89 Other chest pain (principal); H40.9 Unspecified glaucoma; E11.9 Type 2 diabetes mellitus without complications; Z88.6 Allergy status to analgesic agent; Z91.013 Allergy to seafood; Z88.8 Allergy status to other drugs, medicaments and biological substances; Z91.09 Other allergy status, other than to drugs and biological substances; Z60.2 Problems related to living alone; Z98.890 Other specified postprocedural states; Z86.711 Personal history of pulmonary embolism
CPT/HCPCS: 36415; 71045; 71275; 80048; 83880; 84484 ×2; 85025; 85730; 86850; 93005; 96374; 96375; 99285; A4606; J1200; J2930; J3490; J7040; Q9967; Z7610

== ENCOUNTER 2018-02-10 23:51 | Inpatient (IN) | payer MEDICAID, MEDICARE ==
[~2018-02-10] VITALS: Ht 172.7 cm; Wt 84.4 kg
[~2018-02-10 23:51] MED LIST changes: -METF-440 PO; +METF10004 PO; +RANO500T3 PO; +TAMS-12 PO
--- NOTE | 2018-02-11 | NUR ---
PT BB SELF C/O LEFT SIDED CHEST PAIN RADIATING TO LEFT NECK X1.5 HOURS. VITALS ARE STABLE. SKIN INTACT AND DRY. ALERT AND ORIENTED X4 ABLE TO MAKE NEEDS KNOWN. BREATHING PATTERN WNL WITH ADEQUATE CHEST RISE AND FALL. WILL CONTINUE TO MONITOR FOR ANY CHANGES DURING THE SHFIT.
--- NOTE | 2018-02-11 00:01 | NUR ---
ER MD ALVAREZ AT BEDSIDE
--- NOTE | 2018-02-11 00:25 | NUR ---
BLOOD SENT TO LAB WITH FINISHING RANGE OPERATOR
[2018-02-11] MEDS ORDERED: NITROGLYCERIN 0.4 MG/TAB BOTTLE SL ONE (00:30)
[2018-02-11 00:35] LABS: BASOPHILS # (AUTO) 0.1 /CMM (0.0-0.2); BASOPHILS % (AUTO) 0.5 % (0.0-2.0); EOSINOPHILS % (AUTO) 1.2 % (0.0-6.0); HEMATOCRIT 37 % (39-51); LYMPHOCYTES # (AUTO) 1.7 /CMM (0.8-4.8); LYMPHOCYTES % (AUTO) 14.8 % (20.0-44.0); MEAN CORPUSCULAR HEMOGLOBIN 28 PG (26.0-33.0); MEAN CORPUSCULAR HGB CONC 32 g/dl (31.0-36.0); MEAN CORPUSCULAR VOLUME 85 fL (80-96); MONOCYTES # (AUTO) 1.6 /CMM (0.1-1.30); MONOCYTES % (AUTO) 14.1 % (2.0-12.0); NEUTROPHILS % (AUTO) 69.4 % (43.0-81.0); PLATELET COUNT (AUTO) 209 /CMM (150-450); RDW COEFFICIENT OF VARIATION 15.7 (11.5-15.0); RED BLOOD CELL COUNT(AUTO) 4.33 MIL/uL (4.5-6.0); WHITE BLOOD COUNT (AUTO) 11.6 K/uL (4.3-11.0)
--- NOTE | 2018-02-11 00:39 | NUR ---
EKG AT BEDSIDE
[2018-02-11 00:46] LABS: CARBON DIOXIDE 25 mmol/L (21-32); CHLORIDE 105 mmol/L (98-107); CREATININE 1.5 mg/dL (0.6-1.3); GLUCOSE 142 mg/dL (74-106); POTASSIUM 3.7 mmol/L (3.5-5.1); SODIUM SERUM 142 mmol/L (136-145); UREA NITROGEN, BLOOD 16 mg/dL (7-18)
[2018-02-11 00:53] LABS: INR 0.97 (0.87-1.13)
[2018-02-11 00:54] LABS: TROPONIN I < 0.017 ng/mL (0.00-0.056)
--- NOTE | 2018-02-11 01:27 | NUR ---
REPORT GIVEN TO CHRISTIAN
[2018-02-11] MEDS ORDERED: FINA5TAB11 PO (01:32)
--- NOTE | 2018-02-11 02:42 | NUR ---
CHUCKY CALLED FROM [facility]UCLE[facility] MEDICINE AND THE PHONE HAS GONE STRAIGHT TO VOICEMAIL. RADIOLOGY HAS ATTEMPTED TO CALL MULTIPLE TIMES.
[2018-02-11 03:19] VITALS: BP 140/75
--- NOTE | 2018-02-11 03:27 | NUR ---
RN NOTE RECEIVED PATIENT FROM ER, AMBULATORY, ALERT/ORIENTED X3, SR ON THE MONITOR, VITAL SIGNS TAKEN AND RECORDED, SKIN ASSESSMENT PERFORMED, LEFT FOREARM 20 GAUGE NOTED, NO S/S OF INFECTION/INFILTRATION NOTED, NO DISTRESS NOTED AT THIS TIME, PATIENT REQUESTED TO LEAVE ONE SIDE RAIL UP AND ONE DOWN, ALL SAFETY MEASURES TAKEN, WILL CONTINUE TO MONITOR PATIENT
[2018-02-11] MEDS ORDERED: ONDANSETRON HCL/PF 4 MG/2 ML VIAL IVP PRN (04:00)
[2018-02-11] MEDS ORDERED: ZOLPIDEM TARTRATE 5 MG TABLET PO PRN (04:00)
[2018-02-11] MEDS ORDERED: HYDROCODONE/APAP 5/325MG 1 EACH TABLET PO PRN (04:00)
[2018-02-11] MEDS ORDERED: MAGNESIUM HYDROXIDE 30 ML UDC PO PRN (04:00)
[2018-02-11] MEDS ORDERED: DEXTROSE 50%-WATER 50 ML DISP.SYRIN IV PRN (04:00)
[2018-02-11] MEDS ORDERED: IV NS 0.9% 1,000 ML IV PRN (04:00)
--- NOTE | 2018-02-11 04:30 | NUR ---
RN NOTE SPOKE TO ADDY GALLEGOS REGARDING CORE MEASURES, NEW ORDER OF ASPIRIN GIVEN AND CARRIED OUT
[2018-02-11] MEDS ORDERED: ASPIRIN 81 MG TAB.CHEW PO SCH (05:00)
--- NOTE | 2018-02-11 06:40 | NUR ---
RN NOTE PATIENT RESTED WELL AT NIGHT, NO CHEST PAIN OR DISCOMFORT AT THIS TIME, NO DISTRESS NOTED, PATIENT IS STABLE, SR ON THE MONITOR, WILL ENDORSE TO AM SHIFT FOR CONTINUATION OF CARE
[2018-02-11 07:12] LABS: BASOPHILS % (AUTO) 0.3 % (0.0-2.0); EOSINOPHILS % (AUTO) 1.9 % (0.0-6.0); HEMATOCRIT 37 % (39-51); LYMPHOCYTES # (AUTO) 1.7 /CMM (0.8-4.8); LYMPHOCYTES % (AUTO) 17.7 % (20.0-44.0); MEAN CORPUSCULAR HEMOGLOBIN 28 PG (26.0-33.0); MEAN CORPUSCULAR HGB CONC 33 g/dl (31.0-36.0); MEAN CORPUSCULAR VOLUME 85 fL (80-96); MONOCYTES # (AUTO) 1.2 /CMM (0.1-1.30); MONOCYTES % (AUTO) 12.4 % (2.0-12.0); NEUTROPHILS # (AUTO) 6.4 /CMM (1.8-8.9); NEUTROPHILS % (AUTO) 67.7 % (43.0-81.0); PLATELET COUNT (AUTO) 187 /CMM (150-450); RDW COEFFICIENT OF VARIATION 15.6 (11.5-15.0); RED BLOOD CELL COUNT(AUTO) 4.32 MIL/uL (4.5-6.0); WHITE BLOOD COUNT (AUTO) 9.5 K/uL (4.3-11.0)
--- NOTE | 2018-02-11 07:15 | NUR ---
RN Note: Dr Goel notified by noc shift during shift change regarding episode of 1st and 2nd degree AV block. Per MD continue current orders. Labs and imaging results reviewed. For VQ scan today.
[2018-02-11 07:42] LABS: CALCIUM, SERUM 8.8 mg/dL (8.5-10.1); CREATININE 1.3 mg/dL (0.6-1.3); PHOSPHORUS 3.3 mg/dL (2.5-4.9); POTASSIUM 3.9 mmol/L (3.5-5.1)
[2018-02-11 08:00] VITALS: BP 116/64
[2018-02-11 08:10] LABS: IRON, SERUM 22 ug/dl (50-175); TOTAL IRON BINDING CAPACITY 376 ug/dl (250-450)
[2018-02-11] MEDS: BLOOD SUGAR DIAGNOSTIC 1 EACH STRIP IN SCH ×4 (08:16→21:47)
[2018-02-11 08:29] LABS: CHOLESTEROL 144 mg/dL (<200); FERRITIN 13 ng/mL (8-388); HDL CHOLESTEROL 48 mg/dL (40-60); LDL 78 mg/dL (0-99); THYROID STIMULATING HORMONE 2.026 uIU/mL (0.358-3.74); TRIGLYCERIDES 68 mg/dL (30-150)
[2018-02-11 08:47] LABS: TROPONIN I < 0.017 ng/mL (0.00-0.056)
[2018-02-11] MEDS ORDERED: HEPARIN SODIUM, PORCINE 5000 UNITS/1 ML VIAL SQ SCH ×2 (09:00→21:00)
[2018-02-11] MEDS ORDERED: APIXABAN 5 MG TABLET PO SCH (09:00)
[2018-02-11] MEDS: TIMOLOL MAL/DORZOLAM HCL OPHTH 10 ML BOTTLE EACHEYE SCH ×2 (09:42→17:44)
[2018-02-11] MEDS: BRIMONIDINE TARTRATE OPHT SOLN 5 ML BOTTLE EACHEYE SCH ×2 (09:43→17:44)
[2018-02-11] MEDS: METFORMIN 500 MG TABLET PO SCH ×2 (09:43→17:00)
[2018-02-11] MEDS: FINASTERIDE (5 MG) 5 MG TABLET PO SCH (09:43)
[2018-02-11] MEDS: APIXABAN 5 MG TABLET PO SCH ×2 (11:05→17:40)
[2018-02-11] MEDS: INSULIN REGULAR, HUMAN 100 UNIT/ML 3 ML VIAL SQ PRN ×2 (11:36→17:40)
[2018-02-11 12:00] VITALS: BP 124/64
--- NOTE | 2018-02-11 12:45 | NUR ---
RN Note: Joe Prince NP notified of pt c/o chest pain 01/19. Per Dr Goel, pain is non cardiac in nature. Pt refuses to take [place] for pain, states "It makes me vomit." Miguel Thompson, pt refuses strongly, requests "I want the IV meds, morphine or tramadol, whichever one." Pt ambulating around room and is on cell phone. No facial grimacing or change in VS noted. Awaiting orders from EDITORIAL SPECIALIST. Addendum: 02/11/18 at 1249 by SHEYLA AGUIRRE RN time of entry - [id number]
--- NOTE | 2018-02-11 13:38 | NUR ---
NM: LUNG V/Q WAS COMPLETED. TECH:RB
--- NOTE | 2018-02-11 13:45 | NUR ---
RN Note: Joe Prince, SOLUTION SALES SENIOR EXECUTIVE at bedside; discussed POC and pain management with pt. Per SOLUTION SALES SENIOR EXECUTIVE, no IV pain meds to be given. Will review chart and order PO meds for pain control. Awaiting new orders.
--- NOTE | 2018-02-11 14:55 | NUR ---
RN Note: Updated pt on POC, informed that we are waiting pain specialist for pain management per SCIENTIST IMMUNOLOGY. Aware that no IV pain meds will be ordered by SCIENTIST IMMUNOLOGY. Pt agreeable with plan.
--- NOTE | 2018-02-11 14:57 | NUR ---
Patient is known to case peter from his prior multiple admissions. He lives alone, he is ambulatory and independent with adl's.Has no DME or homehealth reported. No dc planning needs identified at this time. Addendum: 02/11/18 at 1457 by PAM MCKEON RN Amended: Links added.
[2018-02-11 16:00] VITALS: BP 126/65
[2018-02-11] MEDS ORDERED: TRAMADOL HCL 50 MG TABLET PO PRN (19:00)
--- NOTE | 2018-02-11 19:07 | NUR ---
RN Note: Pt resting in bed comfortably, VSS. IV HL patent and intact. Care endorsed to PM RN for YURY.
[2018-02-11 20:00] VITALS: BP 123/77
--- NOTE | 2018-02-11 20:40 | NUR ---
RN INITIAL TEL NOTE RECEIVED PATIENT IN ROOM USING BATHROOM, AMBULATORY, ALERT/ORIENTED X3, ON R/A 98% , C/O PAIN 4/10 STATES CAN ARIANNA @ THIS TIME ,SR ON THE MONITOR, VITAL SIGNS TAKEN AND RECORDED, LEFT FOREARM 20 GAUGE NOTED, NO S/S OF INFECTION/INFILTRATION NOTED, NO DISTRESS NOTED AT THIS TIME, ALL SAFETY MEASURES TAKEN, WILL CONTINUE TO MONITOR PATIENT
[2018-02-11] MEDS: ATORVASTATIN 10 MG TABLET PO SCH (21:45)
[2018-02-11] MEDS: TAMSULOSIN 0.4 MG CAP.SR.24H PO SCH (21:45)
[2018-02-11] MEDS: LATANOPROST EYE DROP 0.005% 2.5 ML BOTTLE EACHEYE SCH (21:49)
[2018-02-12] VITALS: BP 123/77
--- NOTE | 2018-02-12 00:14 | NUR ---
PT NON COMPLIANT W/CARE BEING ORDER BY HCP, REFUSED TEL LEADS TO BE ATTACHED, REFUSED ACCU CHECK AND 0000 VS TO BE DONE, SENIOR SUSTAINABILITY CONSULTANT ADDY AWARE, SUGGESTED TO LEAVE HIM ALONE, XR CHEST (-) FOR CARDIOPULMONARY DISEASE. WILL CONT TO MONITOR AT THIS TIME, SAFETY PRECAUTION IN PLACE.
[2018-02-12 04:00] VITALS: BP 120/63
[2018-02-12 06:37] LABS: BASOPHILS % (AUTO) 0.4 % (0.0-2.0); EOSINOPHILS % (AUTO) 3.4 % (0.0-6.0); HEMATOCRIT 38 % (39-51); HEMOGLOBIN 12.2 g/dL (13.5-17.5); LYMPHOCYTES # (AUTO) 1.3 /CMM (0.8-4.8); LYMPHOCYTES % (AUTO) 24.2 % (20.0-44.0); MEAN CORPUSCULAR HEMOGLOBIN 28 PG (26.0-33.0); MEAN CORPUSCULAR HGB CONC 33 g/dl (31.0-36.0); MEAN CORPUSCULAR VOLUME 86 fL (80-96); MONOCYTES # (AUTO) 0.7 /CMM (0.1-1.30); MONOCYTES % (AUTO) 13.5 % (2.0-12.0); NEUTROPHILS # (AUTO) 3.2 /CMM (1.8-8.9); NEUTROPHILS % (AUTO) 58.5 % (43.0-81.0); PLATELET COUNT (AUTO) 166 /CMM (150-450); RDW COEFFICIENT OF VARIATION 15.3 (11.5-15.0); RED BLOOD CELL COUNT(AUTO) 4.38 MIL/uL (4.5-6.0); WHITE BLOOD COUNT (AUTO) 5.5 K/uL (4.3-11.0)
--- NOTE | 2018-02-12 06:55 | NUR ---
RN TEL CLOSING NOTES PT UNCOOPERATIVE, NON COMPLIANT WHENEVER HE CHOOSES TOO, ANGRY AT TIMES WITH NO PROVOCATION, EVEN WITH POLITE ASSIST WITH CARE. WILL ENDORSE TO AM RN TO F/U ON BEHAVIOR.
[2018-02-12 07:15] LABS: BILIRUBIN,TOTAL 0.3 mg/dL (0.2-1.0); CALCIUM, SERUM 8.3 mg/dL (8.5-10.1); CREATININE 1.3 mg/dL (0.6-1.3); MAGNESIUM 1.6 mg/dL (1.8-2.4); PHOSPHORUS 2.7 mg/dL (2.5-4.9); POTASSIUM 3.7 mmol/L (3.5-5.1); TOTAL PROTEIN, SERUM 6.3 g/dL (6.4-8.2)
--- NOTE | 2018-02-12 07:15 | NUR ---
TELE/RN NOTES RECEIVED PT IN BED, ASLEEP BUT AROUSABLE TO NAME AND LIGHT TOUCH. TOLERATING ROOM AIR WELL, NO SOB NOTED. NO C/O PAIN AT THIS TIME. WITH INTACT LFA SL. NO SIGNS OF INFECTION NOTED. SAFETY MEASURES IN PLACED. CALL LIGHT WITHIN REACH. PER PM RN, PT REFUSED TO BE ON TELEMONITOR, WILL OFFER AGAIN LATER. WILL CONT TO MONITOR
--- NOTE | 2018-02-12 07:45 | NUR ---
RN NOTES NOTIFIED DR RUSSELL THAT PT REFUSED TELE MONITOR, PER MD MEJIA TO D/C
[2018-02-12 08:00] VITALS: BP 112/64
[2018-02-12] MEDS: BLOOD SUGAR DIAGNOSTIC 1 EACH STRIP IN SCH ×4 (08:05→21:54)
[2018-02-12] MEDS: BRIMONIDINE TARTRATE OPHT SOLN 5 ML BOTTLE EACHEYE SCH ×2 (08:10→16:32)
[2018-02-12] MEDS: ASPIRIN 81 MG TAB.CHEW PO SCH (08:10)
[2018-02-12] MEDS: TIMOLOL MAL/DORZOLAM HCL OPHTH 10 ML BOTTLE EACHEYE SCH ×2 (08:10→16:32)
[2018-02-12] MEDS: FINASTERIDE (5 MG) 5 MG TABLET PO SCH (08:11)
[2018-02-12] MEDS: METFORMIN 500 MG TABLET PO SCH ×2 (08:11→16:31)
[2018-02-12] MEDS: APIXABAN 5 MG TABLET PO SCH ×2 (08:11→16:31)
[2018-02-12] MEDS: Magnesium 1GM/D5W 100ML PREMIX 100 ML IV SCH ×2 (10:59→12:03)
--- NOTE | 2018-02-12 12:00 | NUR ---
RN NOTES INFORMED PT, MD ORDERED D/C. PER PT, HE FILED FOR APPEAL. CHARGE NURSE NOTIFIED
--- NOTE | 2018-02-12 12:20 | NUR ---
per patient he appealed his discharge to medical,elana joseph notified.
[2018-02-12 16:00] VITALS: BP 113/68
[2018-02-12] MEDS: INSULIN REGULAR, HUMAN 100 UNIT/ML 3 ML VIAL SQ PRN (16:57)
--- NOTE | 2018-02-12 18:54 | NUR ---
MS/RN CLOSING NOTES PT IN STABLE CONDITION, NO ACUTE DISTRESS NOTED THROUGHOUT SHIFT. SAFETY MEASURES OBSERVED AT ALL TIMES. STILL WAITING FOR THE RESULT OF THE APPEAL. ENDORSED TO PM SHIFT NURSE FOR YURY
[2018-02-12 20:00] VITALS: BP 93/54
--- NOTE | 2018-02-12 20:00 | NUR ---
RN INITIAL NOTE RECEIVED PATIENT IN BED, AMBULATORY, ALERT/ORIENTED X3, ON R/A 98% , C/O PAIN 5/10 STATES CAN ARIANNA @ THIS TIME, VITAL SIGNS TAKEN AND RECORDED, LEFT FOREARM 20 GAUGE NOTED, NO S/S OF INFECTION/INFILTRATION NOTED, NO DISTRESS NOTED AT THIS TIME, ALL SAFETY MEASURES TAKEN, WILL CONTINUE TO MONITOR PATIENT
[2018-02-12] MEDS: ATORVASTATIN 10 MG TABLET PO SCH (21:54)
[2018-02-12] MEDS: TAMSULOSIN 0.4 MG CAP.SR.24H PO SCH (21:54)
[2018-02-12] MEDS: LATANOPROST EYE DROP 0.005% 2.5 ML BOTTLE EACHEYE SCH (21:56)
[2018-02-13] VITALS: BP 93/54
[2018-02-13 04:00] VITALS: BP 93/54
--- NOTE | 2018-02-13 06:23 | NUR ---
RN CLOSING NOTES PT IN STABLE CONDITION, NO ACUTE DISTRESS NOTED THROUGHOUT SHIFT. SAFETY MEASURES OBSERVED AT ALL TIMES. ENDORSED TO AM SHIFT NURSE FOR YURY
[2018-02-13 08:00] VITALS: BP 123/64
--- NOTE | 2018-02-13 08:00 | NUR ---
RN NOTE RECEIVED PATIENT IN BED, AMBULATORY, ALERT/ORIENTED X3, ON R/A 95% , C/O PAIN /10 ASKED FOR TYLENOL @ THIS TIME, VITAL SIGNS TAKEN AND RECORDED, LEFT FOREARM 20 GAUGE IV LINE NOTED, NO S/S OF INFECTION/INFILTRATION NOTED, NO DISTRESS, NO SOB NOTED AT THIS TIME, ALL SAFETY MEASURES ARE IMPLEMENTED, WILL CONTINUE TO MONITOR PATIENT.
[2018-02-13] MEDS: BLOOD SUGAR DIAGNOSTIC 1 EACH STRIP IN SCH ×4 (08:07→22:01)
[2018-02-13] MEDS: FINASTERIDE (5 MG) 5 MG TABLET PO SCH (09:24)
[2018-02-13] MEDS: ACETAMINOPHEN 325 MG TABLET PO PRN ×2 (09:25→16:08)
[2018-02-13] MEDS: APIXABAN 5 MG TABLET PO SCH ×2 (09:25→17:40)
[2018-02-13] MEDS: METFORMIN 500 MG TABLET PO SCH ×2 (09:25→17:40)
[2018-02-13] MEDS: ASPIRIN 81 MG TAB.CHEW PO SCH (09:25)
[2018-02-13] MEDS: BRIMONIDINE TARTRATE OPHT SOLN 5 ML BOTTLE EACHEYE SCH ×2 (09:26→17:41)
[2018-02-13] MEDS: TIMOLOL MAL/DORZOLAM HCL OPHTH 10 ML BOTTLE EACHEYE SCH ×2 (09:26→17:41)
--- NOTE | 2018-02-13 10:30 | NUR ---
MS nurse,patient DNR/DNR status with absent respirations ,pulses, no audible heart tones,pupils fixed and dilated,pronounced WIG STYLIST, marysol Prince ,nursing gambling supervisor was notified at this time family at bed side Addendum: 02/13/18 at 1132 by URMILA GARZA RN wrong patient
[2018-02-13 16:00] VITALS: BP 114/77
--- NOTE | 2018-02-13 16:10 | NUR ---
[facility] NOTES LAB PERSONAL COULDN'T DRAW BLOOD. THEY HAD MULTIPLE UNSUCCESSFUL ATTEMPTS. 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 Addendum: 02/13/18 at 1952 by ERLIN UNDERWOOD RN PATIENT IS AGITATED AND SAID "I DON'T WANT TO BE POCKED AGAIN".
[2018-02-13] MEDS: INSULIN REGULAR, HUMAN 100 UNIT/ML 3 ML VIAL SQ PRN (17:49)
--- NOTE | 2018-02-13 20:00 | NUR ---
RN INITIAL NOTES RECEIVED PATIENT IN BED, AMBULATORY, ALERT/ORIENTED X3, ON R/A 98% , VITAL SIGNS TAKEN AND RECORDED, LEFT FOREARM 20 GAUGE NOTED, NO S/S OF INFECTION/INFILTRATION NOTED, NO DISTRESS NOTED AT THIS TIME, ALL SAFETY MEASURES TAKEN, WILL CONTINUE TO MONITOR PATIENT
--- NOTE | 2018-02-13 20:48 | NUR ---
PACKAGING LINE OPERATOR NOTES PT TRANSFERRED TO MED SURG 2- [id number], REPORT GIVEN NESTOR DICKENS. PT TRANSPORTED VIE WHEELCHAIR.ALL PERSONAL BELONGING WITH PT.
[2018-02-13 21:10] VITALS: BP 121/78
--- NOTE | 2018-02-13 21:10 | NUR ---
ms/rn notes PATIENT ARRIVED FROM [facility] W/C, RECEIVED ALERT, ORIENTED, ABLE TO VERBALIZE NEEDS, AMBULATES TO BATHROOM, DENIES PAIN, CALM AND COOPERATIVE, RECEIVED REPORT FROM NESTOR NASH FOR YURY. WILL MONITOR.
[2018-02-13 21:11] VITALS: BP 121/78
--- NOTE | 2018-02-13 21:27 | NUR ---
MS/RN NOTES PER [facility] TO DRAW LAB IN AM, UNABLE TO DRAW, TO DO IN AM.
[2018-02-13] MEDS: ATORVASTATIN 10 MG TABLET PO SCH (22:00)
[2018-02-13] MEDS: TAMSULOSIN 0.4 MG CAP.SR.24H PO SCH (22:01)
[2018-02-13] MEDS: LATANOPROST EYE DROP 0.005% 2.5 ML BOTTLE EACHEYE SCH (22:01)
[2018-02-14] VITALS: BP 121/78
--- NOTE | 2018-02-14 02:06 | NUR ---
ms/rn notes REPORT GIVEN TO NESTOR CORREA FOR YURY.
--- NOTE | 2018-02-14 02:10 | NUR ---
RN NOTES: PT AWAKE, A/O X3, DENIES ANY CHEST PAIN AT THIS TIME, MADE AWARE OF HIS PRN PAIN MEDICINE, IV ACCESS PATENT AND FLUSHING WELL, ON HL. AMBULATORY, CONTINENT, SAFETY PRECAUTIONS FOR FALL INITIATED, CALL LIGHT IN REACH, WILL CONTINUE MONITORING PT
[2018-02-14] MEDS: BLOOD SUGAR DIAGNOSTIC 1 EACH STRIP IN SCH ×4 (05:49→21:19)
--- NOTE | 2018-02-14 06:58 | NUR ---
ACCU CHECK: BLOOD SUGAR 132, PT REFUSED INSULIN AT THIS TIME, EDUCATION PROVIDED TO THE PT,
--- NOTE | 2018-02-14 07:01 | NUR ---
RN CLOSING NOTES: PT REMAINS IN BED, AWAKE, A/O X3, IV ACCESS REMAINS PATENT AND FLUSHING WELL, ON HL. VS REMAINS STABLE, NEEDS ATTENDED, DENIES ANY CHEST PAIN. SAFETY PRECAUTIONS FOR FALL REMAINS ENGAGED, CALL LIGHT IN REACH, WILL ENDORSE TO DAY RN FOR YURY.
--- NOTE | 2018-02-14 07:10 | NUR ---
ms rn initial notes Received patient in bed, awake, head fo bed elevated, no SOB or distress noted. On room air and tolerated well. Alert and oriented x 3, verbally responsive and able to make needs known. IV intact and patent HL only. Call light with in patient reach, will continue to monitor accordingly.
[2018-02-14 08:00] VITALS: BP 119/88
[2018-02-14] MEDS: METFORMIN 500 MG TABLET PO SCH ×2 (08:10→16:21)
[2018-02-14] MEDS: FINASTERIDE (5 MG) 5 MG TABLET PO SCH (08:10)
[2018-02-14] MEDS: ASPIRIN 81 MG TAB.CHEW PO SCH (08:10)
[2018-02-14] MEDS: APIXABAN 5 MG TABLET PO SCH ×2 (08:10→16:21)
[2018-02-14] MEDS: TIMOLOL MAL/DORZOLAM HCL OPHTH 10 ML BOTTLE EACHEYE SCH ×2 (08:11→16:21)
[2018-02-14] MEDS: BRIMONIDINE TARTRATE OPHT SOLN 5 ML BOTTLE EACHEYE SCH ×2 (08:11→16:22)
--- NOTE | 2018-02-14 11:48 | NUR ---
ms rn notes Blood sugar checked 115 no coverage given Will continue to monitor.
[2018-02-14 16:00] VITALS: BP 126/80
[2018-02-14] MEDS: INSULIN REGULAR, HUMAN 100 UNIT/ML 3 ML VIAL SQ PRN ×2 (17:42→21:19)
--- NOTE | 2018-02-14 19:11 | NUR ---
ms rn closing notes All needs provided, attended, and anticipated. Patient in stable condition at this time. Endorsed to next shift RN to continue care. Call light with in patient reach.
--- NOTE | 2018-02-14 19:40 | NUR ---
ms rn initial notes Received patient, awake, a/o x3,verbally responsive, able to make needs known. On ra, no SOB, IV on left fa patent and flushing well, on hl. Safety precautions for fall initiated, call light in reach, will continue monitoring pt.
[2018-02-14 20:00] VITALS: BP 97/61
[2018-02-14] MEDS: ACETAMINOPHEN 325 MG TABLET PO PRN (20:04)
--- NOTE | 2018-02-14 20:05 | NUR ---
PRN TYLENOL: PT CALLED C/O MILD DISCOMFORT ON LEFT SIDE OF THE CHEST 09/19 , NON RADIATING, PT CLAIMED ITS TOLERABLE, REQUESTING FOR TYLENOL, PRN TYLENOL ADMINISTERED AT THIS TIME, WILL CONTINUE TO MONITOR AND REASSESS
[2018-02-14] MEDS: TAMSULOSIN 0.4 MG CAP.SR.24H PO SCH (21:18)
[2018-02-14] MEDS: ATORVASTATIN 10 MG TABLET PO SCH (21:18)
[2018-02-14] MEDS: LATANOPROST EYE DROP 0.005% 2.5 ML BOTTLE EACHEYE SCH (21:19)
--- NOTE | 2018-02-14 21:19 | NUR ---
ACCU CHECK 128: BLOOD SUGAR TEST PERFORMED RESULT IS 128, NO INSULIN COVERAGE GIVEN PER SLIDING SCALE, WILL MONITOR FOR ANY S/S OF HYPOGLYCEMIA. PT CURRENTLY EATING SAND WHICH
[2018-02-15] MEDS: INSULIN REGULAR, HUMAN 100 UNIT/ML 3 ML VIAL SQ PRN (05:40)
[2018-02-15] MEDS: BLOOD SUGAR DIAGNOSTIC 1 EACH STRIP IN SCH ×2 (05:40→12:57)
--- NOTE | 2018-02-15 05:40 | NUR ---
ACCU CHECK 123: BS RESULT IS 123, NO INSULIN COVERAGE GIVEN PER SLIDING SCALE
--- NOTE | 2018-02-15 06:49 | NUR ---
rn closing notes: pt in bed, awake, denies any chest pain or discomfort at this time. iv acces remains patent and flushing well, on hl. pt remain compliant with medication, no untoward behavior noted throughout the shift. vs remains stable, needs attended. for dc but pt refusing to leave, exit care completed. safety precautions for fall remains engaged, call light in reach, will endorse to day rn for astrid.
[2018-02-15 08:00] VITALS: BP 109/73
[2018-02-15] MEDS: TIMOLOL MAL/DORZOLAM HCL OPHTH 10 ML BOTTLE EACHEYE SCH (08:26)
[2018-02-15] MEDS: BRIMONIDINE TARTRATE OPHT SOLN 5 ML BOTTLE EACHEYE SCH (08:26)
[2018-02-15] MEDS: FINASTERIDE (5 MG) 5 MG TABLET PO SCH (08:27)
[2018-02-15] MEDS: METFORMIN 500 MG TABLET PO SCH (08:27)
[2018-02-15] MEDS: APIXABAN 5 MG TABLET PO SCH (08:27)
[2018-02-15] MEDS: ASPIRIN 81 MG TAB.CHEW PO SCH (08:27)
--- NOTE | 2018-02-15 14:15 | NUR ---
ms boat garnisher notes Discharge instructions given to patient and able to understand instructions. Informed patient to sign discharge paper and per patient "I don't need it, I will talk to Donna (case monitor)". Tried to encourage patient and explained the rest of the discharge instructions and patient left. Skin intact, no facial grimace noted, no SOB or distress noted. Alert and oriented x 4, verbally responsive and able to make needs known. Signed discharge paper with 2 nurses. Md and charge nurse aware. Flu is out of season and PNA not given due to patient is <65 years old. Patient left in stable condition via ambulatory.
== END 2018-02-15 14:15 | disposition home or self-care (01) | DRG 203 ==
LOC: ER 23:54 → TELE1 02-11 01:41 → MEDSG1 02-12 10:15 → MEDSG2 02-13 20:55
PROVIDERS: ADMIT Nurse Practitioner Acute Care; ATTEND Nurse Practitioner Acute Care
DX: M94.0 Chondrocostal junction syndrome [Tietze] (principal); N17.0 Acute kidney failure with tubular necrosis; I10 Essential (primary) hypertension; E11.9 Type 2 diabetes mellitus without complications; D64.9 Anemia, unspecified; E78.5 Hyperlipidemia, unspecified; Z91.041 Radiographic dye allergy status; Z88.5 Allergy status to narcotic agent; Z91.013 Allergy to seafood; Z79.84 Long term (current) use of oral hypoglycemic drugs; Z79.899 Other long term (current) drug therapy; F45.41 Pain disorder exclusively related to psychological factors; N40.0 Benign prostatic hyperplasia without lower urinary tract symptoms; Z86.711 Personal history of pulmonary embolism; Z83.3 Family history of diabetes mellitus; Z82.49 Family history of ischemic heart disease and other diseases of the circulatory system; Z79.01 Long term (current) use of anticoagulants; H40.9 Unspecified glaucoma
CPT/HCPCS: 36415; 76770-TC; 78582; 80048-TC; 80053-TC; 80061-TC; 82306; 82728-TC; 82962-TC; 83540-TC; 83735-TC; 84100-TC; 84439-TC; 84443-TC; 84484-TC; 85025-TC; 85730-TC; 87081-TC; 93307-TC; A4606; A9540; A9567; J1644; J1815; J3475; J7030; Z7610

== ENCOUNTER 2018-09-17 13:56 | Inpatient (IN) | payer MEDICAID, MEDICARE ==
[~2018-09-17] VITALS: Ht 172.7 cm; Wt 86.2 kg
[~2018-09-17 13:56] MED LIST changes: +FINA5TAB11 PO; +METF-442 PO; -METF10004 PO; -RANO500T3 PO
--- NOTE | 2018-09-17 13:56 | NUR ---
BIB SELF W C/O CHEST PAIN X 2 1/2 HRS RADIATING TO NECK AREA, TO ER BED 2 , HOOKED TO MONITOR, CHANGED TO GOWN, AWAITING MD SOTELO
--- NOTE | 2018-09-17 14:03 | NUR ---
CALLED IN WAITING AREA. NO ANSWER
--- NOTE | 2018-09-17 14:30 | NUR ---
DR LUTHER AT BEDSIDE
--- NOTE | 2018-09-17 14:43 | NUR ---
CALLED HOUSE SUP FOR BED
--- NOTE | 2018-09-17 14:51 | NUR ---
BED 307 GIVEN TELE
[2018-09-17] MEDS ORDERED: NITROGLYCERIN PACKET 1 GM PACKET ONE (14:53)
[2018-09-17] MEDS ORDERED: ASPIRIN 81 MG TAB.CHEW ONE (14:54)
[2018-09-17 14:57] LABS: BASOPHILS % (AUTO) 0.5 % (0.0-2.0); EOSINOPHILS % (AUTO) 2.7 % (0.0-6.0); HEMATOCRIT 41 % (39-51); HEMOGLOBIN 13.4 g/dL (13.5-17.5); LYMPHOCYTES # (AUTO) 1.3 /CMM (0.8-4.8); LYMPHOCYTES % (AUTO) 17.3 % (20.0-44.0); MEAN CORPUSCULAR HGB CONC 33 g/dl (31.0-36.0); MEAN CORPUSCULAR VOLUME 88 fL (80-96); MONOCYTES # (AUTO) 0.9 /CMM (0.1-1.30); MONOCYTES % (AUTO) 11.4 % (2.0-12.0); NEUTROPHILS # (AUTO) 5.2 /CMM (1.8-8.9); NEUTROPHILS % (AUTO) 68.1 % (43.0-81.0); PLATELET COUNT (AUTO) 168 /CMM (150-450); RED BLOOD CELL COUNT(AUTO) 4.66 MIL/uL (4.5-6.0); WHITE BLOOD COUNT (AUTO) 7.6 K/uL (4.3-11.0)
[2018-09-17] MEDS ORDERED: NITROGLYCERIN PACKET 1 GM PACKET TD ONE (15:00)
[2018-09-17] MEDS ORDERED: ASPIRIN 81 MG TAB.CHEW PO ONE (15:00)
[2018-09-17 15:05] LABS: CALCIUM, SERUM 8.9 mg/dL (8.5-10.1); CARBON DIOXIDE 24 mmol/L (21-32); CHLORIDE 105 mmol/L (98-107); GLUCOSE 126 mg/dL (74-106); POTASSIUM 3.6 mmol/L (3.5-5.1); SODIUM SERUM 139 mmol/L (136-145); UREA NITROGEN, BLOOD 11 mg/dL (7-18)
[2018-09-17] MEDS ORDERED: METF-440 PO (15:09)
--- NOTE | 2018-09-17 15:18 | NUR ---
PANEL ON-CALL PAGED
[2018-09-17 15:19] LABS: B-TYPE NATRIURETIC PEPTIDE 105 PG/ML (0-125)
--- NOTE | 2018-09-17 15:30 | NUR ---
EPIC CALLED. DR WONG PAGED.
--- NOTE | 2018-09-17 15:45 | NUR ---
EPIC CALLED TO CONFIRM THAT THEY REPAGED THE BOOM STICK MAN
--- NOTE | 2018-09-17 15:58 | NUR ---
[facility] FOLLOWED UP ABOUT DISPLAY FABRICATOR AWAITING HIS CALL BACK.
--- NOTE | 2018-09-17 16:06 | NUR ---
[facility] WAS CALLED TO REACH ALTERNATIVE DR
[2018-09-17 16:39] LABS: D-DIMER 0.36 mg/L(FEU (0.17-0.50)
[2018-09-17] MEDS ORDERED: MAG HYDROX/AL HYDROX/SIMETH 30 ML UDC PO PRN (17:00)
[2018-09-17] MEDS ORDERED: Z GUARD REMEDY 2 OZ OINT TP PRN (17:00)
[2018-09-17] MEDS ORDERED: HYDROCODONE/APAP 5/325MG 1 EACH TABLET PO PRN (17:00)
[2018-09-17] MEDS ORDERED: MAGNESIUM HYDROXIDE 30 ML UDC PO PRN (17:00)
[2018-09-17] MEDS ORDERED: DEXTROSE 50%-WATER 50 ML DISP.SYRIN IV PRN (17:00)
[2018-09-17] MEDS ORDERED: ONDANSETRON HCL/PF 4 MG/2 ML VIAL IVP PRN (17:00)
[2018-09-17] MEDS ORDERED: HYDROCODONE/APAP 10/325MG 1 EA TABLET PO PRN (17:00)
[2018-09-17] MEDS ORDERED: ENOXAPARIN SODIUM 40 MG/0.4 ML DISP.SYRIN SQ SCH (17:00)
[2018-09-17 17:35] VITALS: BP 120/68
[2018-09-17] MEDS: INSULIN REGULAR, HUMAN 100 UNIT/ML 3 ML VIAL SQ PRN (18:18)
[2018-09-17] MEDS: APIXABAN 5 MG TABLET PO SCH (18:18)
[2018-09-17] MEDS: BRIMONIDINE TARTRATE OPHT SOLN 5 ML BOTTLE EACHEYE SCH (18:19)
[2018-09-17] MEDS: BLOOD SUGAR DIAGNOSTIC 1 EACH STRIP IN SCH ×2 (18:19→21:37)
[2018-09-17] MEDS: MORPHINE SULFATE INJ 2 MG/ML DISP.SYRIN IV PRN (18:34)
--- NOTE | 2018-09-17 18:36 | NUR ---
CHILDREN'S LUNCHROOM SUPERVISOR ADMITTING NOTES PT ADMITTED TO UNIT VIA GURNEY ACCOMPANIED BY Janusz MCCARTHY AT [id number]. PT ABLE TO WALK AND TRANSFER SELF TO BED. A/O X4. ABLE TO MAKE NEEDS KNOWN, WITH C/O CHEST PAIN RADIATING TO NECK, MORPHINE 2MG IVP ADMINISTERED ORDERED. PT ORIENTED TO UNIT, ROOM AND STAFF. V/S TAKEN AND RECORDED. HEAD TO TOE ASSESSMENT DONE. PT IS WARM TO TOUCH WITH INTACT SKIN. PACEMAKER PRESENT ON LCW. LUNGS CLEAR BILATERALLY ON AUSCULTATION. ABDOMEN SOFT, NON-TENDER AND NON DISTENDED WITH POSITIVE BOWEL SOUNDS. PT WITH POSITIVE ROM ON ALL FOUR EXTREMITIES. PT HAS IV ACCESS ON RIGHT HAND G# 20 INTACT AND PATENT. PT PLACED ON TELEMONITORING WITH CURRENT READING OF SR WITH HR ON THE 80'S. SAFETY MEASURES INITIATED. BED PLACED ON LOW LOCKED POSITION WITH BILATERAL UPPER RAILS. CALL LIGHT LIGHT PLACED WITHIN EASY REACH OF PT. WILL CONTINUE TO MONITOR PT ACCORDINGLY.
[2018-09-17] MEDS: TIMOLOL 0.5% SOLN OPHTH 5 ML BOTTLE EACHEYE SCH (18:51)
[2018-09-17 20:00] VITALS: BP 115/72
--- NOTE | 2018-09-17 20:09 | NUR ---
AIR CARRIER INSPECTOR NOTES RECEIVED PATIENT AWAKE IN BED AND WATCHING TV WITH NO DISTRESS NOTED. CALL LIGHT WITHIN REACH. PERIPHERAL LINE INTACT AND PATENT. NO C/O PAIN OR DISCOMFORT. BED IN LOW LOCK SETTING. ROOM FREE OF CLUTTER AND BELONGINGS KEPT NEAR BEDSIDE. WILL CONTINUE TO MONITOR.
[2018-09-17] MEDS: ATORVASTATIN 10 MG TABLET PO SCH (21:37)
[2018-09-17] MEDS: LATANOPROST EYE DROP 0.005% 2.5 ML BOTTLE OP SCH (21:37)
[2018-09-17] MEDS: TAMSULOSIN 0.4 MG CAP.SR.24H PO SCH (21:37)
[2018-09-18 00:28] VITALS: BP 111/67
[2018-09-18] MEDS: MORPHINE SULFATE INJ 2 MG/ML DISP.SYRIN IV PRN (00:47)
[2018-09-18 04:00] VITALS: BP 109/74
--- NOTE | 2018-09-18 05:05 | NUR ---
PATIENT REFUSED EKG AT THIS TIME. RN IS AWARE
--- NOTE | 2018-09-18 06:08 | NUR ---
COMPUTER FORENSICS ANALYST NOTES PATIENT ASLEEP IN BED WITH NO DISTRESS NOTED. CALL LIGHT WITHIN REACH. ALL DUE MEDS GIVEN ORDERED WITH NO ASE NOTED. NO FURTHER C/O PAIN OR DISCOMFORT. PERIPHERAL LINE INTACT AND PATENT. PATIENT REFUSED EKG THIS AM, PER PATIENT IT WAS TOO EARLY AND WANTED TO SLEEP. RT TO COME BACK FOR 2ND ATTEMPT. ROOM FREE OF CLUTTER AND ALL BELONGINGS KEPT NEAR BEDSIDE. WILL ENDORSE TO ONCOMING SHIFT.
[2018-09-18] MEDS: INSULIN REGULAR, HUMAN 100 UNIT/ML 3 ML VIAL SQ PRN ×2 (06:18→11:44)
[2018-09-18 06:33] LABS: CALCIUM, SERUM 8.6 mg/dL (8.5-10.1); CARBON DIOXIDE 26 mmol/L (21-32); CHLORIDE 107 mmol/L (98-107); CREATININE 0.9 mg/dL (0.6-1.3); GLUCOSE 141 mg/dL (74-106); POTASSIUM 3.7 mmol/L (3.5-5.1); SODIUM SERUM 142 mmol/L (136-145); UREA NITROGEN, BLOOD 11 mg/dL (7-18)
[2018-09-18 06:36] LABS: BASOPHILS % (AUTO) 0.6 % (0.0-2.0); EOSINOPHILS % (AUTO) 3.8 % (0.0-6.0); HEMATOCRIT 40 % (39-51); HEMOGLOBIN 13.1 g/dL (13.5-17.5); LYMPHOCYTES # (AUTO) 1.3 /CMM (0.8-4.8); LYMPHOCYTES % (AUTO) 26.2 % (20.0-44.0); MAGNESIUM 1.9 mg/dL (1.8-2.4); MEAN CORPUSCULAR HGB CONC 33 g/dl (31.0-36.0); MEAN CORPUSCULAR VOLUME 87 fL (80-96); MONOCYTES # (AUTO) 0.7 /CMM (0.1-1.30); MONOCYTES % (AUTO) 13.9 % (2.0-12.0); NEUTROPHILS # (AUTO) 2.9 /CMM (1.8-8.9); NEUTROPHILS % (AUTO) 55.5 % (43.0-81.0); PHOSPHORUS 3.4 mg/dL (2.5-4.9); PLATELET COUNT (AUTO) 136 /CMM (150-450); RED BLOOD CELL COUNT(AUTO) 4.61 MIL/uL (4.5-6.0); WHITE BLOOD COUNT (AUTO) 5.1 K/uL (4.3-11.0)
[2018-09-18] MEDS: BLOOD SUGAR DIAGNOSTIC 1 EACH STRIP IN SCH ×4 (06:44→21:27)
[2018-09-18 06:49] LABS: CHOLESTEROL 189 mg/dL (<200); HDL CHOLESTEROL 36 mg/dL (40-60); LDL 105 mg/dL (0-99); THYROID STIMULATING HORMONE 2.351 uIU/mL (0.358-3.74); TRIGLYCERIDES 255 mg/dL (30-150)
--- NOTE | 2018-09-18 07:29 | NUR ---
MS RN OPENING NOTES RECEIVED PT LAYING IN BED, RESTING COMFORTABLY. PT IS AROUSABLE, A/O X4. AFEBRILE. RESPIRATIONS ARE EVEN AND UNLABORED, NOT IN ANY ACUTE DISTRESS NOTED. DENIES ANY PAIN AT THIS TIME, NO C/O SOB, N/V. IV SITE TO RIGHT HAND INTACT, NO INFILTRATION NOTED. DRESSING KEPT CLEAN AND DRY. SAFETY MEASURES ARE IN PLACE. INSTRUCTED PT TO USE CALL LIGHT WHEN ASSISTANCE IS NEEDED, CALL LIGHT IS LEFT WITHIN REACH. WILL MONITOR THROUGHOUT SHIFT FOR CONTINUITY OF CARE.
[2018-09-18 08:00] VITALS: BP 110/65
[2018-09-18] MEDS: PANTOPRAZOLE 40 MG TABLET.DR PO SCH (08:16)
[2018-09-18] MEDS: BRIMONIDINE TARTRATE OPHT SOLN 5 ML BOTTLE EACHEYE SCH ×2 (08:16→17:11)
[2018-09-18] MEDS: FINASTERIDE (5 MG) 5 MG TABLET PO SCH (08:16)
[2018-09-18] MEDS: APIXABAN 5 MG TABLET PO SCH ×2 (08:17→17:12)
[2018-09-18] MEDS: DORZOLAMIDE OPTH 2% 10 ML BOTTLE EACHEYE SCH ×2 (08:17→17:12)
[2018-09-18] MEDS: TIMOLOL 0.5% SOLN OPHTH 5 ML BOTTLE EACHEYE SCH ×2 (09:00→17:00)
[2018-09-18] MEDS ORDERED: AMLO5TAB4 PO (09:51)
[2018-09-18] MEDS ORDERED: DUTA0.5C PO (09:51)
[2018-09-18] MEDS ORDERED: AMOX875T2 PO (09:51)
--- NOTE | 2018-09-18 11:00 | NUR ---
MS RN NOTES-- PT SEEN AND EXAMINED BY DIETER SANCHEZ NP W/ ORDERS FOR DISCHARGE.
--- NOTE | 2018-09-18 13:01 | NUR ---
MS RN NOTES-- PT CALLED [facility] AND TRIED TO APPEAL W/ CASE NUMBER. RAMONA DUMONT MADE AWARE. DIETER SANCHEZ MADE AWRE.
[2018-09-18 16:00] VITALS: BP 109/69
--- NOTE | 2018-09-18 18:26 | NUR ---
MS RN CLOSING NOTES ALL DUE MEDS GIVEN, NEEDS MET AND ANTICIPATED. PT IS A/O X4 AFEBRILE. RESPIRATIONS ARE EVEN AND UNLABORED, NOT IN ANY ACUTE DISTRESS NOTED. DENIES ANY PAIN, NO SOB, N/V NOTED. IV SITE TO R HAND INTACT, NO INFILTRATION NOTED. DRESSING KEPT CLEAN AND DRY. REMINDED PT TO USE CALL LIGHT WHEN ASSISTANCE IS NEEDED, CALL LIGHT IS LEFT WITHIN REACH. WILL ENDORSE TO NEXT SHIFT FOR CONTINUITY OF CARE.
--- NOTE | 2018-09-18 19:10 | NUR ---
MS RN OPENING NOTES Received patient awake, on left side-lying position on bed. On RA, no SOB/respiratory distress noted. Patient denies discomfort at this time. Kept bed low and locked. Call light within easy reach. Will continue to monitor accordingly.
[2018-09-18 20:00] VITALS: BP 99/60
[2018-09-18] MEDS: TAMSULOSIN 0.4 MG CAP.SR.24H PO SCH (21:27)
[2018-09-18] MEDS: ATORVASTATIN 10 MG TABLET PO SCH (21:27)
[2018-09-18] MEDS: LATANOPROST EYE DROP 0.005% 2.5 ML BOTTLE OP SCH (21:27)
--- NOTE | 2018-09-18 22:37 | NUR ---
MS RN NOTES Patient refused blood sugar check. Explained to patient importance of the procedure, patient verbalized understanding, - insisted to refuse at this time. Explained to patient s/x of hypoglycemia. Patient verbalized understanding. Will continue to monitor accordingly.
--- NOTE | 2018-09-19 06:39 | NUR ---
MS RN CLOSING NOTES Patient asleep on bed, no new unusualities noted. Kept warmth with 2 warm blankets. All nursing needs attended. Patient refused blood sugar checked, explained to patient the benefits of having blood sugar checked, patient verbalized understanding but insisted to refuse. Kept bed low and locked, call light within easy reach. Endorsed to the next shift.
--- NOTE | 2018-09-19 07:39 | NUR ---
MS RN OPENING NOTES RECEIVED PT LAYING IN BED, RESTING COMFORTABLY. PT IS AROUSABLE, A/OX4 AFEBRILE. RESPIRATIONS ARE EVEN AND UNLABORED, NOT IN ANY ACUTE DISTRESS NOTED. DENIES ANY PAIN AT THIS TIME, NO C/O SOB, N/V. IV SITE TO R HAND INTACT, NO INFILTRATION NOTED. DRESSING KEPT CLEAN AND DRY. PT STATED TO LEAVE HIM ALONE. SAFETY MEASURES ARE IN PLACE. INSTRUCTED PT TO USE CALL LIGHT WHEN ASSISTANCE IS NEEDED, CALL LIGHT IS LEFT WITHIN REACH. WILL MONITOR THROUGHOUT SHIFT FOR CONTINUITY OF CARE.
[2018-09-19] MEDS: BLOOD SUGAR DIAGNOSTIC 1 EACH STRIP IN SCH ×4 (07:56→21:45)
[2018-09-19] MEDS: PANTOPRAZOLE 40 MG TABLET.DR PO SCH (07:56)
[2018-09-19 08:00] VITALS: BP 122/69
[2018-09-19] MEDS: INSULIN REGULAR, HUMAN 100 UNIT/ML 3 ML VIAL SQ PRN ×4 (08:00→21:46)
[2018-09-19] MEDS: FINASTERIDE (5 MG) 5 MG TABLET PO SCH (08:02)
[2018-09-19] MEDS: APIXABAN 5 MG TABLET PO SCH ×2 (08:02→17:11)
[2018-09-19] MEDS: BRIMONIDINE TARTRATE OPHT SOLN 5 ML BOTTLE EACHEYE SCH ×2 (08:03→17:11)
[2018-09-19] MEDS: DORZOLAMIDE OPTH 2% 10 ML BOTTLE EACHEYE SCH ×2 (08:03→17:11)
[2018-09-19] MEDS: TIMOLOL 0.5% SOLN OPHTH 5 ML BOTTLE EACHEYE SCH ×2 (08:03→17:00)
--- NOTE | 2018-09-19 14:09 | NUR ---
MS RN NOTES-- PODIATRY CONSULT BY DR. ODONNELL. ORDERS FOR PROCEDURE CONSENT FOR RIGHT GREAT TOE PARTIAL NAIL AVULSION, LIDOCAIN 1%. ORDERS READ BACK AND VERIFIED. NOTED AND CARRIED OUT. PT MADE AWARE.
--- NOTE | 2018-09-19 14:09 | NUR ---
MS RN NOTES-- PER DR. ODONNELL, HE WILL BE HERE TOMORROW MORNING FOR PROCEDURE.
[2018-09-19] MEDS ORDERED: LIDOCAINE 1%-EPI 1:100,000 20 ML VIAL TP ONE (14:30)
[2018-09-19 16:00] VITALS: BP 104/66
--- NOTE | 2018-09-19 18:10 | NUR ---
MS BAEZ NOTES-- CONSENTS SIGNED FOR RIGHT PARTIAL GREAT TOE NAIL AVULSION.
--- NOTE | 2018-09-19 19:45 | NUR ---
RN INITIAL NOTES: RECEIVED REPORT FROM KARL BAEZ, PT IN BED, AWAKE, A/O X4, PT ON RA RESPIRATION EVEN AND UNLABORED, PER REPORT PT FILED AN APPEAL WITH [facility], PT HAS DC ORDER SINCE YESTERDAY, GOT DENIES TODAY BUT APPEALED AGAIN TODAY, DC PT'S PAIN MEDICATIONS, BUT PT WANTS MORPHINE ONLY FOR PAIN, DR SANCHEZ AWARE, PER REPORT NO ORDER FOR IVP PAIN MEDS PER MD. DISCUSSED PLAN OF CARE TO THE PT, SAFETY PRECAUTIONS FOR FALL INITIATED, CALL LIGHT IN REACH, WILL CONTINUE MONITORING PT.
[2018-09-19 20:00] VITALS: BP 106/69
--- NOTE | 2018-09-19 20:29 | NUR ---
RN NOTES: PT C/O ABOUT MD DR SANCHEZ HE CLAIMED HE DOESNT DO ANYTHING FOR HIM, HE ALSO CLAIMED THAT HE DOESNT WANT DR SANCHEZ TAKING CARE OF HIM AND HE DOESNT WANT THE SAID MD GO TO HIS ROOM. INFORMED HAIRSPRING CUTTER ABOUT THIS COMPLAINT. HE AlLSO ADDED THAT MD DOESNT WANT TO GIVE HIM MORPHINE FOR HIS PAIN.
--- NOTE | 2018-09-19 20:52 | NUR ---
RN NOTES: PT C/O CHEST PAIN RADIATING TO NECK, /, AND RIGHT TOENAIL INGROWN PAIN , PT CLAIMED HE'S DEALING WITH PAIN FROM HEAD TO TOE, REQUESTING FOR MORPHINE AND SLEEPING PILL, NO PRN MEDS ORDER. PAGED EPIC REGISTERED ASSOCIATE
--- NOTE | 2018-09-19 20:53 | NUR ---
RN NOTES: PT STATED TO INFORMED MD THAT HE DOESN'T WANT NORCO, BECAUSE THE MEDICATION MADE HIM THROW UP, HE SPECIFICALLY REQUESTED FOR MORPHINE IVP, CLAIMING THE ONLY REASON MD DC'D THE SAID MEDICATION IS BECAUSE HE'S SUPPOSED TO BE DISCHARGE, ALSO PT REQUESTING FOR SLEEPING PILL.
--- NOTE | 2018-09-19 20:55 | NUR ---
RN NOTES: RECEIVED CALL FROM [facility] PREVENTIVE MEDICINE PHYSICIAN MD, RELAYED PT'S COMPLAINED OF PAIN, PER MD NO ORDER FOR ANY IV PAIN MEDICATIONS, NO SLEEPING PILL, BUT MD ORDER PRN NITROGLYCERIN SL FOR CHEST PAIN. RELAYED TO MUSIC EXECUTIVE AND RECORDS ANALYSIS MANAGER MADE AWARE TOO. WILL RELAY TO THE PATIENT
[2018-09-19] MEDS ORDERED: NITROGLYCERIN 0.4 MG/TAB BOTTLE SL PRN (21:30)
[2018-09-19] MEDS: ATORVASTATIN 10 MG TABLET PO SCH (21:44)
[2018-09-19] MEDS: ACETAMINOPHEN 325 MG TABLET PO PRN (21:44)
--- NOTE | 2018-09-19 21:44 | NUR ---
PRN TYLENOL: PT REQUESTED FOR TYLENOL FOR CHEST PAIN AND RIGHT TOENAIL INGROWN PAIN, OFFERED NITROGLYCERIN FOR CHEST PAIN BUT PT REFUSED STATED NITROGLYCERIN GIVES HIM HEAD ACHE, PRN TYLENOL ADMINISTERED ORDERED.
[2018-09-19] MEDS: TAMSULOSIN 0.4 MG CAP.SR.24H PO SCH (21:45)
[2018-09-19] MEDS ORDERED: LATANOPROST EYE DROP 0.005% 2.5 ML BOTTLE ONE (22:06)
[2018-09-19] MEDS: LATANOPROST EYE DROP 0.005% 2.5 ML BOTTLE OP SCH (22:25)
[2018-09-20] MEDS: BLOOD SUGAR DIAGNOSTIC 1 EACH STRIP IN SCH ×4 (06:38→21:27)
[2018-09-20] MEDS: INSULIN REGULAR, HUMAN 100 UNIT/ML 3 ML VIAL SQ PRN ×2 (06:39→12:11)
--- NOTE | 2018-09-20 06:40 | NUR ---
ACCU CHECK 175: BLOOD SUGAR 175, 3UNITS OF INSULIN GIVEN PER SLIDING SCALE, WILL MONITOR FOR ANY S/S OF HYPOGLYCEMIA
--- NOTE | 2018-09-20 07:26 | NUR ---
RN CLOSING NOTES: PT REMAINS ON RA RESPIRATION EVEN AND UNLABORED, IV ACCESS PATENT AND FLUSHING WELL, ON HL. DENIES ANY CHEST PAIN OR DISCOMFORT AT THIS TIME. FOR RIGHT TOENAIL INGROWN AVULSION PROCEDURE TODAY. VS REMAINS STABLE, NEEDS ATTENDED. SAFETY PRECAUTIONS FOR FALL REMAINS ENGAGED, CALL LIGHT IN REACH, WILL ENDORSE TO DAY RN FOR CONTINUITY OF CARE.
--- NOTE | 2018-09-20 07:30 | NUR ---
m/s toggle press operator: initial assessment received pt in bed awake, a/ox4. voiced no discomfort at this time. instructed to call for assistance. will monitor.
[2018-09-20 08:00] VITALS: BP 124/75
--- NOTE | 2018-09-20 08:45 | NUR ---
m/s medical assisting program director: slag mixer f/u pt consented for total nail avulsion of right great toe and verbalized understanding. dr. apodaca at bedside performing the procedure mentioned, celina. well. triple antibiotic applied and with dressing by slag mixer. will continue to monitor.
[2018-09-20] MEDS: FINASTERIDE (5 MG) 5 MG TABLET PO SCH (08:54)
[2018-09-20] MEDS: BRIMONIDINE TARTRATE OPHT SOLN 5 ML BOTTLE EACHEYE SCH ×2 (08:54→17:32)
[2018-09-20] MEDS: PANTOPRAZOLE 40 MG TABLET.DR PO SCH (08:54)
[2018-09-20] MEDS: APIXABAN 5 MG TABLET PO SCH ×2 (08:54→17:29)
[2018-09-20] MEDS: DORZOLAMIDE OPTH 2% 10 ML BOTTLE EACHEYE SCH ×2 (09:00→17:29)
[2018-09-20] MEDS ORDERED: LIDOCAINE 0.5% HCL 50 ML VIAL IJ ONE (09:00)
[2018-09-20] MEDS: NEOMY SULF/BACITRAC ZN/POLY 15 GM TUBE TP SCH (09:01)
[2018-09-20] MEDS: ACETAMINOPHEN 325 MG TABLET PO PRN ×2 (09:36→18:50)
--- NOTE | 2018-09-20 09:36 | NUR ---
m/s medical care administrator: notes pt requesting for iv morphine due to right great to pain, tylenol 650mg po given as ordered. basil (acnp) notified via exchange.
--- NOTE | 2018-09-20 10:00 | NUR ---
m/s loss prevention research engineer: notes still awaiting for basil (acnp) to return call, pt still insisting of getting iv push morphine. pt doesn't want to continue with basil's (acnp) care. informed pt that i still need to call him and let him know.
[2018-09-20] MEDS: TIMOLOL 0.5% SOLN OPHTH 5 ML BOTTLE EACHEYE SCH ×2 (10:18→17:34)
--- NOTE | 2018-09-20 11:00 | NUR ---
m/s manager of global: notes basil (acnp) here and made aware. basil will inform me, who will take over his care. pt made aware.
--- NOTE | 2018-09-20 11:30 | NUR ---
m/s civilian jail officer: notes basil (acnp) here and informed me that maude (acnp) will take over his care. pt made aware.
--- NOTE | 2018-09-20 12:00 | NUR ---
m/s automobile lights assembler: notes lunch served. instructed to call for assistance. will monitor.
--- NOTE | 2018-09-20 15:30 | NUR ---
m/s medical grade shoemaker: notes pt request for a snack. dietitian notified and made aware.
[2018-09-20 16:00] VITALS: BP 115/67
--- NOTE | 2018-09-20 16:33 | NUR ---
m/s head men's tennis coach: md visit seen and examined by maude (acnp) at this time. pending d'c home. pt still refuses and with pending appeal per case management.
--- NOTE | 2018-09-20 17:10 | NUR ---
m/s corporate counselor: notes report given to isidoro (carmen) for continuity of care.
--- NOTE | 2018-09-20 19:10 | NUR ---
m/s certified surgical technician: notes report given to isidoro (carmen) for continuity of care.
--- NOTE | 2018-09-20 19:40 | NUR ---
MS RN NOTE: PATIENT RESTING IN BED, NO ACUTE DISTRESS NOTED. BREATHING EVEN AND UNLABORED, NO SOB NOTED. IV TO RIGHT HAND IN PLACE. NO S/S OF HYPER/HYPOGLYCEMIA NOTED. BED LOCKED AND IN LOWEST POSITION, CALL LIGHT IN REACH. WILL CONTINUE TO MONITOR.
[2018-09-20 20:00] VITALS: BP 108/64
[2018-09-20] MEDS: LATANOPROST EYE DROP 0.005% 2.5 ML BOTTLE OP SCH (21:27)
[2018-09-20] MEDS: TAMSULOSIN 0.4 MG CAP.SR.24H PO SCH (21:27)
[2018-09-20] MEDS: ATORVASTATIN 10 MG TABLET PO SCH (21:27)
--- NOTE | 2018-09-20 21:45 | NUR ---
MS RN NOTE: PATIENT BLOOD SUGAR LEVEL 126MG/DL, NO INSULIN NEEDED PER SLIDING SCALE. NO S/S OF HYPOGLYCEMIA NOTED. WILL GIVE PATIENT JUICE AND SNACKS. WILL CONTINUE TO MONITOR.
[2018-09-21] MEDS: ACETAMINOPHEN 325 MG TABLET PO PRN ×3 (02:05→22:32)
--- NOTE | 2018-09-21 06:15 | NUR ---
MS RN NOTE: PATIENT RESTING IN BED, NO ACUTE DISTRESS NOTED. BREATHING EVEN AND UNLABORED, NO SOB NOTED. IV TO RIGHT HAND IN PLACE. PATIENT BLOOD SUGAR LEVEL 147MG/DL, TO RECEIVE 2 UNITS PER SLIDING SCALE. NO S/S OF HYPER/HYPOGLYCEMIA NOTED. BED LOCKED AND IN LOWEST POSITION, CALL LIGHT IN REACH. WILL ENDORSE TO DAY NURSE TO CONTINUE WITH PLAN OF CARE.
[2018-09-21] MEDS: BLOOD SUGAR DIAGNOSTIC 1 EACH STRIP IN SCH ×4 (06:46→22:07)
[2018-09-21] MEDS: INSULIN REGULAR, HUMAN 100 UNIT/ML 3 ML VIAL SQ PRN ×3 (06:48→22:11)
--- NOTE | 2018-09-21 07:43 | NUR ---
MS RN OPENING NOTES RECEIVED PT LAYING IN BED, RESTING COMFORTABLY. PT IS AROUSABLE, A/OX4 AFEBRILE. RESPIRATIONS ARE EVEN AND UNLABORED, NOT IN ANY ACUTE DISTRESS NOTED. DENIES ANY PAIN AT THIS TIME, NO C/O SOB, N/V. IV SITE TO R HAND INTACT, NO INFILTRATION NOTED. DRESSING KEPT CLEAN AND DRY. SAFETY MEASURES ARE IN PLACE. INSTRUCTED PT TO USE CALL LIGHT WHEN ASSISTANCE IS NEEDED, CALL LIGHT IS LEFT WITHIN REACH. WILL MONITOR THROUGHOUT SHIFT FOR CONTINUITY OF CARE.
[2018-09-21 08:00] VITALS: BP_SYST 124; BP_SYST 126; BP_DIAS 87
[2018-09-21] MEDS: FINASTERIDE (5 MG) 5 MG TABLET PO SCH (08:31)
[2018-09-21] MEDS: PANTOPRAZOLE 40 MG TABLET.DR PO SCH (08:31)
[2018-09-21] MEDS: TIMOLOL 0.5% SOLN OPHTH 5 ML BOTTLE EACHEYE SCH ×2 (08:32→16:01)
[2018-09-21] MEDS: DORZOLAMIDE OPTH 2% 10 ML BOTTLE EACHEYE SCH ×2 (08:32→16:01)
[2018-09-21] MEDS: APIXABAN 5 MG TABLET PO SCH ×2 (08:32→16:01)
[2018-09-21] MEDS: NEOMY SULF/BACITRAC ZN/POLY 15 GM TUBE TP SCH (08:33)
[2018-09-21] MEDS: BRIMONIDINE TARTRATE OPHT SOLN 5 ML BOTTLE EACHEYE SCH ×2 (09:00→16:02)
--- NOTE | 2018-09-21 09:01 | NUR ---
MS RN NOTES-- BRIMINODINE EYE DROPS ARE NO WHERE TO BE FOUND. NOTIFIED PHARMACY, SPOKE WITH SANDRO AND SAID HE WOULD SEND A NEW ONE TO THE FLOOR. PT STATED IF HE HAS THE MEDICATION AND DENIED. PT ALSO STATED THAT HE DOES NOT NEED IT. NONADMIN NOTED FOR BRIMINODINE.
[2018-09-21] MEDS: CARVEDILOL 12.5 MG TABLET PO SCH ×2 (10:33→21:00)
[2018-09-21 20:00] VITALS: BP 108/69
[2018-09-21] MEDS: TAMSULOSIN 0.4 MG CAP.SR.24H PO SCH (22:07)
[2018-09-21] MEDS: ATORVASTATIN 10 MG TABLET PO SCH (22:07)
[2018-09-21] MEDS: LATANOPROST EYE DROP 0.005% 2.5 ML BOTTLE OP SCH (22:07)
--- NOTE | 2018-09-21 22:40 | NUR ---
MS RN NOTE: PATIENT BLOOD SUGAR LEVEL 210MG/DL, 4 UNITS OF INSULIN GIVEN PER SLIDING SCALE. NO S/S OF HYPOGLYCEMIA NOTED. PATIENT ALSO COMPLAINS OF PAIN TO RIGHT TOE, TYLENOL 650MG ORAL GIVEN PER MD ORDER. WILL CONTINUE TO MONITOR.
--- NOTE | 2018-09-22 06:35 | NUR ---
MS RN NOTE: PATIENT RESTING IN BED, NO ACUTE DISTRESS NOTED. BREATHING EVEN AND UNLABORED, NO SOB NOTED. IV TO RIGHT HAND IN PLACE. PATIENT BLOOD SUGAR LEVEL 154MG/DL, TO RECEIVE 2 UNITS PER SLIDING SCALE. NO S/S OF HYPER/HYPOGLYCEMIA NOTED. BED LOCKED AND IN LOWEST POSITION, CALL LIGHT IN REACH. WILL ENDORSE TO DAY NURSE TO CONTINUE WITH PLAN OF CARE.
[2018-09-22] MEDS: BLOOD SUGAR DIAGNOSTIC 1 EACH STRIP IN SCH ×2 (06:54→11:54)
[2018-09-22] MEDS: INSULIN REGULAR, HUMAN 100 UNIT/ML 3 ML VIAL SQ PRN ×2 (06:55→11:58)
[2018-09-22 07:30] LABS: BASOPHILS % (AUTO) 0.5 % (0.0-2.0); EOSINOPHILS % (AUTO) 2.5 % (0.0-6.0); HEMATOCRIT 41 % (39-51); HEMOGLOBIN 13.7 g/dL (13.5-17.5); LYMPHOCYTES # (AUTO) 1.3 /CMM (0.8-4.8); LYMPHOCYTES % (AUTO) 23.2 % (20.0-44.0); MEAN CORPUSCULAR HGB CONC 33 g/dl (31.0-36.0); MEAN CORPUSCULAR VOLUME 87 fL (80-96); MONOCYTES # (AUTO) 0.5 /CMM (0.1-1.30); MONOCYTES % (AUTO) 9.8 % (2.0-12.0); NEUTROPHILS # (AUTO) 3.4 /CMM (1.8-8.9); PLATELET COUNT (AUTO) 147 /CMM (150-450); RED BLOOD CELL COUNT(AUTO) 4.74 MIL/uL (4.5-6.0); WHITE BLOOD COUNT (AUTO) 5.4 K/uL (4.3-11.0)
--- NOTE | 2018-09-22 07:30 | NUR ---
MS RN OPENING NOTES RECEIVED PT LAYING IN BED, WATCHING TV. PT IS A/OX4 AFEBRILE. RESPIRATIONS ARE EVEN AND UNLABORED, NOT IN ANY ACUTE DISTRESS NOTED. DENIES ANY PAIN AT THIS TIME, NO C/O SOB, N/V. IV SITE TO R HAND INTACT, NO INFILTRATION NOTED. DRESSING KEPT CLEAN AND DRY. SAFETY MEASURES ARE IN PLACE. INSTRUCTED PT TO USE CALL LIGHT WHEN ASSISTANCE IS NEEDED, CALL LIGHT IS LEFT WITHIN REACH. WILL MONITOR THROUGHOUT SHIFT FOR CONTINUITY OF CARE.
[2018-09-22 07:49] LABS: CALCIUM, SERUM 8.8 mg/dL (8.5-10.1); POTASSIUM 3.7 mmol/L (3.5-5.1)
[2018-09-22 08:00] VITALS: BP 103/64
[2018-09-22] MEDS ORDERED: CARV12.52 PO (08:18)
[2018-09-22] MEDS: DORZOLAMIDE OPTH 2% 10 ML BOTTLE EACHEYE SCH (08:21)
[2018-09-22 08:22] VITALS: BP 103/64
[2018-09-22] MEDS: PANTOPRAZOLE 40 MG TABLET.DR PO SCH (08:22)
[2018-09-22] MEDS: CARVEDILOL 12.5 MG TABLET PO SCH (08:22)
[2018-09-22] MEDS: FINASTERIDE (5 MG) 5 MG TABLET PO SCH (08:22)
[2018-09-22] MEDS: TIMOLOL 0.5% SOLN OPHTH 5 ML BOTTLE EACHEYE SCH (08:22)
[2018-09-22] MEDS: APIXABAN 5 MG TABLET PO SCH (08:23)
[2018-09-22] MEDS: BRIMONIDINE TARTRATE OPHT SOLN 5 ML BOTTLE EACHEYE SCH (08:23)
[2018-09-22] MEDS: NEOMY SULF/BACITRAC ZN/POLY 15 GM TUBE TP SCH (08:24)
[2018-09-22] MEDS ORDERED: METFORMIN 500 MG TABLET PO SCH (14:30)
--- NOTE | 2018-09-22 14:30 | NUR ---
MS RN NOTES-- EXPLAINED DISCHARGE PAPERWORK TO PT WITH VERBAL AND WRITTEN UNDERSTANDING. BELONGING LIST WAS SIGNED. PT WAS ALREADY PACKING UP BELONGINGS. IV ACCESS REMOVED AT THIS TIME, TOLERATED WELL. INSTRUCTED TO USE CALL LIGHT WHEN READY TO LEAVE AND WILL ASSIST PT DOWN TO LOBBY. PT AGREED.
[2018-09-22] MEDS: ACETAMINOPHEN 325 MG TABLET PO PRN (14:44)
--- NOTE | 2018-09-22 15:15 | NUR ---
MS DIGITAL COMMUNICATIONS MANAGER NOTE PT DISCHARGE TO HOME IN STABLE CONDITION. PT IS A/O X4, AFEBRILE. RESPIRATIONS ARE EVEN AND UNLABORED, NOT IN ANY ACUTE DISTRESS NOTED. PT IS AMBULATORY. DRESSING WAS DONE BY RIGHT GREAT TOE BUT REFUSED PICTURES. ADMINISTERED TYLENOL AND METFORMIN PRIOR TO LEAVING. CALLED PT'S PHARMACY TO MAKE SURE PRESCRIPTIONS WERE IN. PT LEFT IN STABLE CONDITION.
== END 2018-09-22 15:15 | disposition home or self-care (01) | DRG 203 ==
LOC: ER 13:57 → TELE 15:27 → MED 09-18 09:40
PROVIDERS: ADMIT Nurse Practitioner Acute Care; ATTEND Nurse Practitioner Acute Care
PROC: 0HDRXZZ Extraction of Toe Nail, External Approach (ICD-10-PCS; principal; 2018-09-20)
DX: R07.89 Other chest pain (principal); I11.0 Hypertensive heart disease with heart failure; I50.9 Heart failure, unspecified; E11.65 Type 2 diabetes mellitus with hyperglycemia; E78.5 Hyperlipidemia, unspecified; H40.9 Unspecified glaucoma; L60.0 Ingrowing nail; Z76.5 Malingerer [conscious simulation]; N40.0 Benign prostatic hyperplasia without lower urinary tract symptoms; Z91.041 Radiographic dye allergy status; Z88.5 Allergy status to narcotic agent; Z91.013 Allergy to seafood; Z79.84 Long term (current) use of oral hypoglycemic drugs; Z79.899 Other long term (current) drug therapy; Z86.711 Personal history of pulmonary embolism; Z95.0 Presence of cardiac pacemaker; Z83.3 Family history of diabetes mellitus; Z82.49 Family history of ischemic heart disease and other diseases of the circulatory system; Z79.01 Long term (current) use of anticoagulants; B35.1 Tinea unguium
CPT/HCPCS: 36415; 71045-TC; 80048-TC; 80061-TC; 82962-TC; 83735-TC; 83880; 84100-TC; 84443-TC; 84484-TC; 85025-TC; 85378-TC; 85730-TC; 87081-TC; A6402; G0378; J1815; J2270; J3490

== ENCOUNTER 2019-01-19 17:08 | Emergency (ER) | payer MEDICARE, MEDICAID ==
[~2019-01-19] VITALS: Ht 172.7 cm; Wt 88.9 kg
[~2019-01-19 17:08] MED LIST changes: +AMLO5TAB4 PO; +AMOX875T2 PO; +CARV12.52 PO; +DUTA0.5C PO; +METF-440 PO; -METF-442 PO
--- NOTE | 2019-01-19 17:08 | NUR ---
BIB SELF C/O CHEST PAIN X 1HR AGO PRESSURE LIKE, PT IS AAOX4, NOT IN RESPIRATORY DISTRESS, HOOKED TO MONITOR, KEPT RESTED AND COMFORTABLE, WILL CONTINUE TO MONITOR.
--- NOTE | 2019-01-19 17:45 | NUR ---
SEEN AND EXAMINED BY .
--- NOTE | 2019-01-19 17:50 | NUR ---
UNABLE TO ESTABLISHED IV LINE, CHARGE NURSE AND MD AWARE.
[2019-01-19 18:24] LABS: BASOPHILS % (AUTO) 0.5 % (0.0-2.0); EOSINOPHILS % (AUTO) 2.8 % (0.0-6.0); HEMATOCRIT 38 % (39-51); HEMOGLOBIN 12.6 g/dL (13.5-17.5); LYMPHOCYTES # (AUTO) 1.3 /CMM (0.8-4.8); LYMPHOCYTES % (AUTO) 17.3 % (20.0-44.0); MEAN CORPUSCULAR HGB CONC 33 g/dl (31.0-36.0); MEAN CORPUSCULAR VOLUME 90 fL (80-96); MONOCYTES # (AUTO) 0.8 /CMM (0.1-1.30); MONOCYTES % (AUTO) 10.8 % (2.0-12.0); NEUTROPHILS # (AUTO) 5.1 /CMM (1.8-8.9); NEUTROPHILS % (AUTO) 68.6 % (43.0-81.0); PLATELET COUNT (AUTO) 153 /CMM (150-450); RED BLOOD CELL COUNT(AUTO) 4.23 MIL/uL (4.5-6.0); WHITE BLOOD COUNT (AUTO) 7.4 K/uL (4.3-11.0)
[2019-01-19 18:43] LABS: CARBON DIOXIDE 24 mmol/L (21-32); CHLORIDE 107 mmol/L (98-107); CREATININE 1.3 mg/dL (0.6-1.3); GLUCOSE 203 mg/dL (74-106); POTASSIUM 3.7 mmol/L (3.5-5.1); SODIUM SERUM 142 mmol/L (136-145); UREA NITROGEN, BLOOD 17 mg/dL (7-18)
[2019-01-19 18:49] LABS: ALANINE AMINOTRANSFERASE 28 U/L (12-78); ALBUMIN 3.2 g/dL (3.4-5.0); ALKALINE PHOSPHATASE 88 U/L (46-116); ASPARTATE AMINOTRANSFERASE 15 U/L (15-37); BILIRUBIN,DIRECT 0.1 mg/dL (0.0-0.2); BILIRUBIN,TOTAL 0.3 mg/dL (0.2-1.0); TOTAL PROTEIN, SERUM 6.8 g/dL (6.4-8.2)
--- NOTE | 2019-01-19 20:35 | NUR ---
PT VERBALLY AGGRESSIVE AND THREATENING STAFF.
[2019-01-19] MEDS ORDERED: ASPIRIN 325 MG TABLET ONE (20:40)
--- NOTE | 2019-01-19 20:40 | NUR ---
PT SPEAKING WITH CHARGE NURSE.
--- NOTE | 2019-01-19 20:45 | NUR ---
PT SPEAKING WITH DR. LANIER.
--- NOTE | 2019-01-19 20:57 | NUR ---
PT SPEAKING TO NURSING CIRCLE EDGER.
[2019-01-19] MEDS ORDERED: ASPIRIN 325 MG TABLET PO ONE (21:00)
--- NOTE | 2019-01-19 21:15 | NUR ---
Patient discharged to home in stable condition. Written and verbal after care instructions given. Patient verbalizes understanding of instruction. Pt refused to sign. IV removed. Catheter intact and site benign. Pressure and 4x4 applied to site. No bleeding noted.
[2019-01-19 21:16] VITALS: BP 144/82
== END 2019-01-19 21:17 | disposition home or self-care (01) ==
LOC: ER 17:13
DX: G89.29 Other chronic pain (principal); R07.89 Other chest pain; I10 Essential (primary) hypertension; E78.5 Hyperlipidemia, unspecified; E11.9 Type 2 diabetes mellitus without complications; Z95.0 Presence of cardiac pacemaker; Z98.890 Other specified postprocedural states; Z88.6 Allergy status to analgesic agent; Z91.013 Allergy to seafood; Z91.09 Other allergy status, other than to drugs and biological substances; Z60.2 Problems related to living alone; Z79.899 Other long term (current) drug therapy; Z79.84 Long term (current) use of oral hypoglycemic drugs
CPT/HCPCS: 36415; 71045-TC; 80048-TC; 80076-TC; 84484-TC; 85025-TC; 87081-TC

== ENCOUNTER 2019-05-29 05:47 | Emergency (ER) | payer OTHER, MEDICAID ==
[~2019-05-29] VITALS: Ht 172.7 cm; Wt 88.9 kg
[~2019-05-29 05:47] MED LIST changes: -AMLO5TAB4 PO; -AMOX875T2 PO; -CARV12.52 PO; -FINA5TAB11 PO
--- NOTE | 2019-05-29 06:20 | NUR ---
BIBSELF. TO ER BED 9. AAOX4. NO RESP DISTRESS NOTED, BREATHING EVEN AND UNLABORED. AMBULATORY. C/O LEFT SIDED CHEST PAIN. PT REPORTS THAT PAIN STARTED 45MIN CAN TECHNICIAN. PT HAS A PACEMAKER AND VERBALIZES THAT SOMETHING MIGHT BE WRONG WITH IT. HE REPORTS FEELING THAT HIS HR IS RAPID. 8/10, PRESSURE LIKE FEELING IF SOMEBODY IS SITTIN ON HIS CHEST. PT REPORT THAT PAIN IS RADIATING TO HIS NECK. MD AT BEDSIDE FOR EVAL. ORDERS RECEIVED. GUARD DRIVER AT BEDSIDE FOR DRAW. EKG DONE BY EMT. PT ON MONITOR. WILL CONTINUE TO MONITOR
[2019-05-29] MEDS ORDERED: ASPIRIN 325 MG TABLET ONE (06:22)
[2019-05-29 06:26] LABS: BASOPHILS # (AUTO) 0.1 /CMM (0.0-0.2); BASOPHILS % (AUTO) 0.8 % (0.0-2.0); EOSINOPHILS % (AUTO) 1.4 % (0.0-6.0); HEMATOCRIT 39 % (39-51); HEMOGLOBIN 12.6 g/dL (13.5-17.5); LYMPHOCYTES # (AUTO) 1.8 /CMM (0.8-4.8); LYMPHOCYTES % (AUTO) 21.8 % (20.0-44.0); MEAN CORPUSCULAR HGB CONC 32 g/dl (31.0-36.0); MEAN CORPUSCULAR VOLUME 85 fL (80-96); MONOCYTES # (AUTO) 0.8 /CMM (0.1-1.30); MONOCYTES % (AUTO) 10.4 % (2.0-12.0); NEUTROPHILS # (AUTO) 5.3 /CMM (1.8-8.9); NEUTROPHILS % (AUTO) 65.6 % (43.0-81.0); PLATELET COUNT (AUTO) 178 /CMM (150-450); WHITE BLOOD COUNT (AUTO) 8.1 K/uL (4.3-11.0)
[2019-05-29] MEDS ORDERED: ASPIRIN 325 MG TABLET PO ONE (06:30)
[2019-05-29 06:34] LABS: CALCIUM, SERUM 8.7 mg/dL (8.5-10.1); CARBON DIOXIDE 26 mmol/L (21-32); CHLORIDE 107 mmol/L (98-107); CREATININE 1.2 mg/dL (0.6-1.3); GLUCOSE 106 mg/dL (74-106); POTASSIUM 3.4 mmol/L (3.5-5.1); SODIUM SERUM 140 mmol/L (136-145); UREA NITROGEN, BLOOD 19 mg/dL (7-18)
--- NOTE | 2019-05-29 07:16 | NUR ---
REPORT RECEIVED FROM JUSTIN BAEZ FOR YURY
--- NOTE | 2019-05-29 08:32 | NUR ---
PATIENT IN BED AWAKE, BREATHING EVEN AND UNLABORED, NAD NOTED. WILL CONTINUE TO MONITOR ACCORDINGLY.
--- NOTE | 2019-05-29 09:42 | NUR ---
PATIENT IN BED AWAKE, HOOKED TO MONITOR, BREATHING EVEN AND UNLABORED, NAD NOTED. WILL CONTINUE TO MONITOR
[2019-05-29 11:26] VITALS: BP 125/70
--- NOTE | 2019-05-29 11:26 | NUR ---
Patient discharged to home in stable condition. Written and verbal after care instructions given. Patient verbalizes understanding of instruction.
== END 2019-05-29 11:30 | disposition home or self-care (01) ==
LOC: ER 05:50
DX: R07.89 Other chest pain (principal); I10 Essential (primary) hypertension; E11.9 Type 2 diabetes mellitus without complications; E78.5 Hyperlipidemia, unspecified; Z95.0 Presence of cardiac pacemaker; Z98.890 Other specified postprocedural states; Z88.6 Allergy status to analgesic agent; Z88.8 Allergy status to other drugs, medicaments and biological substances; Z91.013 Allergy to seafood; Z60.2 Problems related to living alone; Z79.899 Other long term (current) drug therapy; Z79.84 Long term (current) use of oral hypoglycemic drugs
CPT/HCPCS: 36415; 71045-TC; 80048-TC; 84484-TC; 85025-TC; 85730-TC

== ENCOUNTER 2019-08-23 19:19 | Emergency (ER) | payer OTHER ==
[~2019-08-23] VITALS: Ht 172.7 cm; Wt 88.9 kg
[2019-08-23] MEDS ORDERED: ONDANSETRON 4 MG TAB.RAPDIS ONE (20:23)
[2019-08-23] MEDS ORDERED: HYDROCODONE/APAP 10/325MG 1 EA TABLET ONE (20:23)
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
[2019-08-23] MEDS ORDERED: ONDANSETRON 4 MG TAB.RAPDIS SL ONE (20:30)
[2019-08-23] MEDS ORDERED: HYDROCODONE/APAP 10/325MG 1 EA TABLET PO ONE (20:30)
--- NOTE | 2019-08-23 20:30 | NUR ---
XRAY AT BEDSIDE
--- NOTE | 2019-08-23 20:46 | NUR ---
PHLEB AT BEDSIDE DRAWING BLOOD
[2019-08-23 21:55] LABS: BASOPHILS # (AUTO) 0.1 /CMM (0.0-0.2); BASOPHILS % (AUTO) 0.9 % (0.0-2.0); EOSINOPHILS % (AUTO) 3.1 % (0.0-6.0); HEMATOCRIT 40 % (39-51); HEMOGLOBIN 12.8 g/dL (13.5-17.5); LYMPHOCYTES # (AUTO) 1.5 /CMM (0.8-4.8); LYMPHOCYTES % (AUTO) 21.6 % (20.0-44.0); MEAN CORPUSCULAR HGB CONC 32 g/dl (31.0-36.0); MEAN CORPUSCULAR VOLUME 83 fL (80-96); MONOCYTES % (AUTO) 15.2 % (2.0-12.0); NEUTROPHILS # (AUTO) 4.1 /CMM (1.8-8.9); NEUTROPHILS % (AUTO) 59.2 % (43.0-81.0); PLATELET COUNT (AUTO) 183 /CMM (150-450); RED BLOOD CELL COUNT(AUTO) 4.76 MIL/uL (4.5-6.0); WHITE BLOOD COUNT (AUTO) 6.9 K/uL (4.3-11.0)
[2019-08-23 22:03] LABS: CALCIUM, SERUM 9.1 mg/dL (8.5-10.1); CARBON DIOXIDE 27 mmol/L (21-32); CHLORIDE 106 mmol/L (98-107); CREATININE 1.1 mg/dL (0.6-1.3); GLUCOSE 103 mg/dL (74-106); POTASSIUM 4.1 mmol/L (3.5-5.1); SODIUM SERUM 141 mmol/L (136-145); UREA NITROGEN, BLOOD 16 mg/dL (7-18)
--- NOTE | 2019-08-24 00:45 | NUR ---
PHLEB AT BEDSIDE FOR REDRAW OF TROPONIN
[2019-09-07 07:38] VITALS: BP 145/77
== END 2019-08-24 01:09 | disposition home or self-care (01) ==
LOC: ER 19:24
DX: R07.89 Other chest pain (principal); R42 Dizziness and giddiness; R51 Headache; I10 Essential (primary) hypertension; E11.9 Type 2 diabetes mellitus without complications; E78.5 Hyperlipidemia, unspecified; Z95.0 Presence of cardiac pacemaker; Z86.711 Personal history of pulmonary embolism; Z98.890 Other specified postprocedural states; Z88.5 Allergy status to narcotic agent; Z91.013 Allergy to seafood; Z88.8 Allergy status to other drugs, medicaments and biological substances; Z60.2 Problems related to living alone; Z79.899 Other long term (current) drug therapy
CPT/HCPCS: 36415 ×2; 71045; 80048; 84484 ×2; 85025; 93005 ×2; 99285; Q0162

== ENCOUNTER 2021-01-28 22:21 | Emergency (ER) | payer MEDICARE, OTHER ==
[~2021-01-28] VITALS: Ht 172.7 cm; Wt 88.9 kg
--- NOTE | 2021-01-28 22:22 | NUR ---
TO ER BED 7 AMBULATORY C/O L SIDED CP RADIATING TO NECK X3 HRS BATT PACKER. PT AAOX4 NO ACUTE DISTRESS NOTED, RESP EVEN AND UNLABORED. SKIN WARM, NONDIAPHORETIC. PLACE PT ON CARDIAC MONITORING, CONTINUOUS POX. PENDING ER MD SOTELO.
--- NOTE | 2021-01-28 22:35 | NUR ---
STARTED SL 18G TO RFA, BLOOD DRAWN AND SENT TO LAB.
[2021-01-28 22:51] LABS: BASOPHILS % (AUTO) 0.3 % (0.0-2.0); EOSINOPHILS % (AUTO) 0.1 % (0.0-6.0); HEMATOCRIT 45 % (39-51); HEMOGLOBIN 14.6 g/dL (13.5-17.5); LYMPHOCYTES # (AUTO) 0.7 K/uL (0.8-4.8); MEAN CORPUSCULAR HGB CONC 32 g/dl (31.0-36.0); MEAN CORPUSCULAR VOLUME 90 fL (80-96); MONOCYTES # (AUTO) 0.1 K/uL (0.1-1.30); MONOCYTES % (AUTO) 0.5 % (2.0-12.0); NEUTROPHILS # (AUTO) 10.3 K/uL (1.8-8.9); NEUTROPHILS % (AUTO) 93.1 % (43.0-81.0); PLATELET COUNT (AUTO) 194 K/uL (150-450)
--- NOTE | 2021-01-28 22:51 | NUR ---
CHERRY FLORES AT BEDSIDE TO RE-EVAL PT.
[2021-01-28] MEDS ORDERED: NITROGLYCERIN 0.4 MG/TAB BOTTLE ONE (23:04)
[2021-01-28] MEDS: NITROGLYCERIN 0.4 MG/TAB BOTTLE SL ONE (23:08)
[2021-01-28 23:11] LABS: CALCIUM, SERUM 9.6 mg/dL (8.5-10.1); CARBON DIOXIDE 23 mmol/L (21-32); CHLORIDE 105 mmol/L (98-107); CREATININE 1.4 mg/dL (0.6-1.3); GLUCOSE 288 mg/dL (74-106); POTASSIUM 4.6 mmol/L (3.5-5.1); SODIUM SERUM 138 mmol/L (136-145); UREA NITROGEN, BLOOD 15 mg/dL (7-18)
--- NOTE | 2021-01-28 23:20 | NUR ---
US AT BEDSIDE
[2021-01-28 23:23] LABS: ALANINE AMINOTRANSFERASE 18 U/L (12-78); ALBUMIN 3.9 g/dL (3.4-5.0); ALKALINE PHOSPHATASE 86 U/L (46-116); ASPARTATE AMINOTRANSFERASE 16 U/L (15-37); BILIRUBIN,DIRECT 0.1 mg/dL (0.0-0.2); BILIRUBIN,TOTAL 0.4 mg/dL (0.2-1.0); TOTAL PROTEIN, SERUM 7.9 g/dL (6.4-8.2)
--- NOTE | 2021-01-28 23:25 | NUR ---
AFTER GIVING 1 NITRO SL, PT STATED HIS CP DECREASED FROM 8/10 TO 4. REQUESTED FOR ANOTHER NITRO. SECOND NITRO GIVEN.
[2021-01-28 23:57] LABS: BAND % (MANUAL) 2 % (0.0-5.0); BASOPHILS % (MANUAL) 0 % (0.0-2.0); EOSINOPHILS % (MANUAL) 0 % (0-4); LYMPHOCYTES % (MANUAL) 3 % (16-48); MONOCYTES % (MANUAL) 2 % (0-11.0); NEUTROPHILS % (MANUAL) 93 (42-76)
[2021-01-29 00:12] VITALS: BP 128/60
--- NOTE | 2021-01-29 00:12 | NUR ---
CHERRY FLORES SPOKE TO MARLYS PENA NP REGARDING PT ADMISSION.
[2021-01-29] MEDS ORDERED: INSULIN REGULAR, HUMAN 100 UNIT/ML 3 ML VIAL SQ PRN (00:30)
[2021-01-29] MEDS ORDERED: MAG HYDROX/AL HYDROX/SIMETH 30 ML UDC PO PRN (00:30)
[2021-01-29] MEDS ORDERED: ACETAMINOPHEN 325 MG TABLET PO PRN (00:30)
[2021-01-29] MEDS: NITROGLYCERIN PACKET 1 GM PACKET TOP SCH (00:30)
[2021-01-29] MEDS ORDERED: ONDANSETRON HCL/PF 4 MG/2 ML VIAL IVP PRN (00:30)
[2021-01-29] MEDS ORDERED: DEXTROSE 50%-WATER 50 ML DISP.SYRIN IV PRN (00:30)
[2021-01-29] MEDS ORDERED: ZOLPIDEM TARTRATE 5 MG TABLET PO PRN (00:30)
--- NOTE | 2021-01-29 00:31 | NUR ---
IV removed. Catheter intact and site benign. Pressure and 4x4 applied to site. No bleeding noted.
--- NOTE | 2021-01-29 01:23 | NUR ---
PT REFUSING NITRO. STATING "YOU GUYS DO NOT DO SHIT." PT REMAINS ON MONITOR AND PULSE OX.
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
--- NOTE | 2021-01-29 02:24 | NUR ---
PT LEFT ER WITH OUT SIGNING AMA. ER MD AWARE.
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
[2021-01-29] MEDS ORDERED: DUTASTERIDE (0.5 MG) 0.5 MG CAPSULE PO SCH (07:30)
[2021-01-29] MEDS ORDERED: BLOOD SUGAR DIAGNOSTIC 1 EACH STRIP IN SCH (07:30)
[2021-01-29] MEDS ORDERED: PANTOPRAZOLE 40 MG TABLET.DR PO SCH (07:30)
[2021-01-29] MEDS ORDERED: TIMOLOL MAL/DORZOLAM HCL OPHTH 10 ML BOTTLE EACHEYE SCH (09:00)
[2021-01-29] MEDS ORDERED: APIXABAN 5 MG TABLET PO SCH (09:00)
[2021-01-29] MEDS ORDERED: BRIMONIDINE TARTRATE EACHEYE SCH (09:00)
[2021-01-29] MEDS ORDERED: TAMSULOSIN 0.4 MG CAP.SR.24H PO SCH (22:00)
[2021-01-29] MEDS ORDERED: ATORVASTATIN 10 MG TABLET PO SCH (22:00)
== END 2021-01-29 02:25 | disposition left against medical advice (07) ==
LOC: ER 22:27
DX: R07.9 Chest pain, unspecified (principal); R10.31 Right lower quadrant pain; E11.65 Type 2 diabetes mellitus with hyperglycemia; Z79.84 Long term (current) use of oral hypoglycemic drugs; N40.0 Benign prostatic hyperplasia without lower urinary tract symptoms; E78.5 Hyperlipidemia, unspecified; Z86.711 Personal history of pulmonary embolism; Z79.01 Long term (current) use of anticoagulants; H40.9 Unspecified glaucoma; Z95.0 Presence of cardiac pacemaker; Z20.822 Contact with and (suspected) exposure to COVID-19
CPT/HCPCS: 36415; 71045-TC; 80048-TC; 80076-TC; 83880; 84484-TC; 85025-TC; 85378-TC; 85730-TC; 87081-TC; C9803

== ENCOUNTER 2021-09-07 21:36 | Inpatient (IN) | payer MEDICARE, OTHER ==
[~2021-09-07] VITALS: Ht 172.7 cm; Wt 86.2 kg
[~2021-09-07 21:36] MED LIST changes: -TRAV5DRO EACHEYE; +TRAV5DRO11 EACHEYE
--- NOTE | 2021-09-07 22:01 | NUR ---
BIBSELF C/O CP X 5 HRS, LEFT SIDE, RAD TO NECK. PATIENT IS A/O X 4, RR EVEN AND UNLABORED, NO SOB NOTED. PATIENT CONNECTED TO MONITORS.
[2021-09-07] MEDS ORDERED: ASPIRIN 325 MG TABLET ONE (22:12)
[2021-09-07] MEDS ORDERED: ASPIRIN 81 MG TAB.CHEW PO ONE (22:30)
--- NOTE | 2021-09-07 22:38 | NUR ---
VETERINARY ATTENDANT AT PT'S BEDSIDE
--- NOTE | 2021-09-08 01:00 | NUR ---
GRETEL #20G S/L; PATENT AND INTACT. BLOOD AND COVID ANTIGEN SWAB COLLECTED AND SENT TO LAB
[2021-09-08] MEDS ORDERED: MORPHINE SULFATE INJ 4 MG/ML DISP.SYRIN ONE (01:07)
[2021-09-08] MEDS ORDERED: MORPHINE SULFATE INJ 2 MG/ML DISP.SYRIN IV ONE (01:30)
[2021-09-08 01:41] LABS: BASOPHILS % (AUTO) 0.6 % (0.0-2.0); EOSINOPHILS % (AUTO) 2.9 % (0.0-6.0); HEMATOCRIT 38 % (39-51); HEMOGLOBIN 12.3 g/dL (13.5-17.5); LYMPHOCYTES # (AUTO) 1.2 K/uL (0.8-4.8); LYMPHOCYTES % (AUTO) 21.2 % (20.0-44.0); MEAN CORPUSCULAR HGB CONC 33 g/dl (31.0-36.0); MEAN CORPUSCULAR VOLUME 89 fL (80-96); MONOCYTES # (AUTO) 0.6 K/uL (0.1-1.30); MONOCYTES % (AUTO) 9.7 % (2.0-12.0); NEUTROPHILS # (AUTO) 3.8 K/uL (1.8-8.9); NEUTROPHILS % (AUTO) 65.6 % (43.0-81.0); PLATELET COUNT (AUTO) 169 K/uL (150-450); RED BLOOD CELL COUNT(AUTO) 4.27 MIL/uL (4.5-6.0); WHITE BLOOD COUNT (AUTO) 5.8 K/uL (4.3-11.0)
[2021-09-08 01:49] LABS: CALCIUM, SERUM 9.1 mg/dL (8.5-10.1); CARBON DIOXIDE 28 mmol/L (21-32); CHLORIDE 105 mmol/L (98-107); CREATININE 1.1 mg/dL (0.6-1.3); GLUCOSE 96 mg/dL (74-106); POTASSIUM 3.5 mmol/L (3.5-5.1); SODIUM SERUM 140 mmol/L (136-145); UREA NITROGEN, BLOOD 15 mg/dL (7-18)
[2021-09-08 01:55] LABS: ALANINE AMINOTRANSFERASE 15 U/L (12-78); ALBUMIN 3.4 g/dL (3.4-5.0); ALKALINE PHOSPHATASE 65 U/L (46-116); ASPARTATE AMINOTRANSFERASE 10 U/L (15-37); BILIRUBIN,DIRECT 0.1 mg/dL (0.0-0.2); BILIRUBIN,TOTAL 0.5 mg/dL (0.2-1.0); TOTAL PROTEIN, SERUM 6.7 g/dL (6.4-8.2)
[2021-09-08] MEDS ORDERED: MAGNESIUM HYDROXIDE 30 ML UDC PO PRN (04:00)
[2021-09-08] MEDS ORDERED: Z GUARD REMEDY 4 OZ OINT TP PRN (04:00)
[2021-09-08] MEDS ORDERED: NITROGLYCERIN 0.4 MG/TAB BOTTLE SL PRN (04:00)
[2021-09-08] MEDS ORDERED: MAG HYDROX/AL HYDROX/SIMETH 30 ML UDC PO PRN (04:00)
[2021-09-08] MEDS ORDERED: TEMAZEPAM 15 MG CAPSULE PO PRN (04:00)
[2021-09-08] MEDS ORDERED: HYDROCODONE/APAP 5/325MG TABLET PO PRN (04:00)
[2021-09-08] MEDS ORDERED: ONDANSETRON HCL/PF 4 MG/2 ML VIAL IVP PRN (04:00)
[2021-09-08] MEDS ORDERED: ACETAMINOPHEN 325 MG TABLET PO PRN (04:00)
--- NOTE | 2021-09-08 06:32 | NUR ---
REPORT GIVEN TO CHARGE NURSE
--- NOTE | 2021-09-08 07:07 | NUR ---
PT TRANSFERRED TO 3W 322 VIA ACLS PROTOCOL. VSS. PT TOLERATED TRANSFER WELL.
--- NOTE | 2021-09-08 08:29 | NUR ---
RN NOTES BREAKFAST TRAY GIVEN TO PATIENT.
[2021-09-08 08:30] VITALS: BP 130/76
[2021-09-08] MEDS: METFORMIN 500 MG TABLET PO SCH ×2 (08:47→17:01)
[2021-09-08] MEDS: PANTOPRAZOLE 40 MG TABLET.DR PO SCH (08:48)
[2021-09-08] MEDS: DUTASTERIDE (0.5 MG) 0.5 MG CAPSULE PO SCH ×3 (08:48→17:01)
[2021-09-08] MEDS: TIMOLOL MAL/DORZOLAM HCL OPHTH 10 ML BOTTLE EACHEYE SCH ×2 (08:50→17:02)
[2021-09-08] MEDS: BRIMONIDINE TARTRATE OPHT SOLN 5 ML BOTTLE EACHEYE SCH ×3 (08:50→22:10)
[2021-09-08] MEDS: APIXABAN 5 MG TABLET PO SCH ×2 (08:51→17:03)
--- NOTE | 2021-09-08 09:01 | NUR ---
RN NOTES PATIENT DID NOT WANT TO TAKE NORCO, STATES IT MAKES HIM NAUSEOUS/VOMIT; REQUESTS FOR MORPHINE IV INSTEAD.
[2021-09-08] MEDS: MORPHINE SULFATE INJ 2 MG/ML DISP.SYRIN IV PRN ×2 (11:55→22:28)
--- NOTE | 2021-09-08 12:30 | NUR ---
RN NOTES MD INFORMED ABOUT REQUEST FOR MORPHINE IV W/ ORDER NOTED.
[2021-09-08 12:35] VITALS: BP 103/69
[2021-09-08 16:04] VITALS: BP 97/60
--- NOTE | 2021-09-08 18:54 | NUR ---
RN NOTES UNABLE TO INSERT NEW IV LINE, PATIENT IS HARD STICK. ER NURSE UNABLE TO INSERT LINE WELL. NEW ORDER FOR MIDLINE INSERTION NOTED.
[2021-09-08 20:00] VITALS: BP 133/79
[2021-09-08] MEDS ORDERED: TAMSULOSIN 0.4 MG CAP.SR.24H PO SCH (22:00)
[2021-09-08] MEDS ORDERED: LATANOPROST EYE DROP 0.005% 2.5 ML BOTTLE OP SCH (22:00)
[2021-09-08] MEDS ORDERED: ATORVASTATIN 10 MG TABLET PO SCH (22:00)
[2021-09-09] VITALS: BP 123/58
[2021-09-09 04:00] VITALS: BP 116/75
[2021-09-09] MEDS: MORPHINE SULFATE INJ 2 MG/ML DISP.SYRIN IV PRN ×2 (04:26→09:10)
[2021-09-09 06:21] LABS: BASOPHILS % (AUTO) 0.6 % (0.0-2.0); EOSINOPHILS % (AUTO) 3.5 % (0.0-6.0); HEMATOCRIT 37 % (39-51); HEMOGLOBIN 12.1 g/dL (13.5-17.5); LYMPHOCYTES # (AUTO) 1.1 K/uL (0.8-4.8); LYMPHOCYTES % (AUTO) 18.5 % (20.0-44.0); MEAN CORPUSCULAR HGB CONC 33 g/dl (31.0-36.0); MEAN CORPUSCULAR VOLUME 88 fL (80-96); MONOCYTES # (AUTO) 0.6 K/uL (0.1-1.30); MONOCYTES % (AUTO) 10.6 % (2.0-12.0); NEUTROPHILS # (AUTO) 3.9 K/uL (1.8-8.9); NEUTROPHILS % (AUTO) 66.8 % (43.0-81.0); PLATELET COUNT (AUTO) 147 K/uL (150-450); RED BLOOD CELL COUNT(AUTO) 4.16 MIL/uL (4.5-6.0); WHITE BLOOD COUNT (AUTO) 5.8 K/uL (4.3-11.0)
--- NOTE | 2021-09-09 06:53 | NUR ---
Patient is A&Ox4. Did c/o CP on 2 occasions however, did not look in distress. Medicated with verbalized relief from PRN Morphine to JOVANNI midline. Patient Sr in 60s on the monitor overnight. No other issues. Patient compliant.
[2021-09-09] MEDS: DUTASTERIDE (0.5 MG) 0.5 MG CAPSULE PO SCH ×3 (07:16→16:40)
[2021-09-09] MEDS: PANTOPRAZOLE 40 MG TABLET.DR PO SCH (07:16)
[2021-09-09] MEDS: BRIMONIDINE TARTRATE OPHT SOLN 5 ML BOTTLE EACHEYE SCH ×2 (07:17→15:27)
[2021-09-09 07:21] LABS: CREATININE 1.2 mg/dL (0.6-1.3); MAGNESIUM 1.8 mg/dL (1.8-2.4); PHOSPHORUS 3.8 mg/dL (2.5-4.9); POTASSIUM 3.8 mmol/L (3.5-5.1)
--- NOTE | 2021-09-09 07:30 | NUR ---
SALES SERVICE PROMOTER OPENING NOTES RECEIVED PT AWAKE IN BED IN NO ACUTE SIGNS OF DISTRESS. A/O X4. ABLE TO MAKE NEEDS KNOWN, DENIES PAIN OR ANY DISCOMFORTS AT THIS TIME. ON ROOM AIR, TOLERATING WELL WITH NO SOB NOTED. ON TELE-MONITOR WITH CURRENT READING OF NSR, HR 63, NO C/O CARDIAC DISTRESS VOICED AT THIS TIME. JOVANNI MIDLINE INTACT, PATENT AND FLUSHES WELL. SAFETY PRECAUTIONS IN PLACE: BED IN LOWEST LOCKED POSITION, SIDE-RAILS UPx2, TRAY TABLE AND CALL LIGHT WITHIN EASY REACH OF PT. WILL CONTINUE TO MONITOR.
[2021-09-09] MEDS: TIMOLOL MAL/DORZOLAM HCL OPHTH 10 ML BOTTLE EACHEYE SCH ×2 (08:22→16:42)
[2021-09-09] MEDS: APIXABAN 5 MG TABLET PO SCH ×2 (08:23→16:40)
[2021-09-09] MEDS: METFORMIN 500 MG TABLET PO SCH ×2 (08:25→16:40)
[2021-09-09 08:41] VITALS: BP 124/70
--- NOTE | 2021-09-09 09:13 | NUR ---
RN NOTES PT C/O LEFT CHEST WALL AND LOWER BACK PAIN, 8/10 SCALE. PRN MORPHINE 2MG/ML IVP ADMINISTERED AT 0910.WILL CONTINUE TO MONITOR AND REASSESS PT.
[2021-09-09] MEDS ORDERED: methylPREDNISolone SOD SUCC 125 MG/2ML VIAL IV ONE (09:30)
[2021-09-09] MEDS ORDERED: diphenhydrAMINE HCL 50 MG/ML VIAL IV ONE (09:30)
--- NOTE | 2021-09-09 10:09 | NUR ---
RN NOTE PATIENT STATED HE HAD ALLERGIC TO IODINE, NOTIFIED GAVE NEW ORDER FOR BENADRYL 50 AND SOLU-MEDROL 100
[2021-09-09 10:17] LABS: THYROID STIMULATING HORMONE 0.494 uIU/mL (0.358-3.74)
[2021-09-09] MEDS ORDERED: IOHEXOL-350 100 ML VIAL IV ONE (10:30)
[2021-09-09] MEDS ORDERED: METOPROLOL TARTRATE INJ 5 MG/5 ML AMPUL ONE (10:31)
[2021-09-09] MEDS ORDERED: NITROGLYCERIN 0.4 MG/TAB BOTTLE ONE (10:31)
[2021-09-09] MEDS ORDERED: CT SWABBABLE VALVE TRANS SET 1 EA INFUS.SET MC ONE (10:31)
[2021-09-09] MEDS ORDERED: IV NS 0.9% 250 ML IV ONE (10:32)
--- NOTE | 2021-09-09 10:40 | NUR ---
RN NOTES PT PICKED-UP FOR CTA OF HEART WITH 3D IMAGES VIA WHEELCHAIR . SOLU-MEDROL 100 MG IVP AND BENADRYL 50 IVP ADMINISTERED ORDERED.
[2021-09-09 10:42] LABS: CHOLESTEROL 110 mg/dL (<200); HDL CHOLESTEROL 38 mg/dL (40-60); LDL 52 mg/dL (0-99); TRIGLYCERIDES 93 mg/dL (30-150)
[2021-09-09] MEDS ORDERED: METOPROLOL TARTRATE INJ 5 MG/5 ML AMPUL IVP PRN (11:00)
[2021-09-09] MEDS ORDERED: NITROGLYCERIN 0.4 MG/TAB BOTTLE SL ONE (11:00)
[2021-09-09 11:05] VITALS: BP 116/68
--- NOTE | 2021-09-09 15:53 | NUR ---
RN NOTES DR RUSSELL INFORMED OF PT'S CTCA RESULTS AND CLEARED HIM FOR D/C. DR LOZOYA MADE AWARE AND ORDERED TO D/C HOME PT.
--- NOTE | 2021-09-09 18:29 | NUR ---
RN DISCHARGED NOTES PT DISCHARGED HOME IN STABLE CONDITION. A/O X4. ABLE TO MAKE NEEDS KNOWN. ALL NEEDS AND CARE ATTENDED WELL. V/S TAKEN AND STABLE. NO SKIN ISSUES NOTED. ALL BELONGINGS ACCOUNTED FOR AND PT SIGNED BELONGINGS LIST. MIDLINE ON JOVANNI REMOVED WITH MINIMAL BLEEDING NOTED, DRY PRESSURE DRESSING APPLIED AT SITE UNTIL BLEEDING STOPPED. NAME ARMBAND REMOVED. HEALTH TEACHINGS AND DISCHARGED INSTRUCTIONS GIVEN TO PT AND VERBALIZED UNDERSTANDING. RAMONA LEYVA ARRANGED TRANSPORT FOR PT VIA [facility] BUT PT REFUSED AND GETS UPSET THAT AMBULANCE SERVICE WAS ARRANGED FOR HIM. HE STATED THAT HE WILL TAKE A TAXI AND WILL PAY FOR THE FARE. STAFF CALLED A TAXI AND PT LEFT UNIT AMBULATORY 1820 ACCOMPANIED BY SECURITY. MD AND CHARGE NURSE AWARE OF DISCHARGE.
== END 2021-09-09 18:21 | disposition home or self-care (01) | DRG 206 ==
LOC: ER 22:11 → TELE 09-08 06:10
PROVIDERS: ADMIT Nurse Practitioner Acute Care; ATTEND Internal Medicine
PROC: 05H933Z Insertion of Infusion Device into Right Brachial Vein, Percutaneous Approach (ICD-10-PCS; principal; 2021-09-08)
DX: M94.0 Chondrocostal junction syndrome [Tietze] (principal); E11.9 Type 2 diabetes mellitus without complications; E78.5 Hyperlipidemia, unspecified; I10 Essential (primary) hypertension; Z95.0 Presence of cardiac pacemaker; N40.0 Benign prostatic hyperplasia without lower urinary tract symptoms; Z86.711 Personal history of pulmonary embolism; Z98.890 Other specified postprocedural states; H40.9 Unspecified glaucoma; Z91.018 Allergy to other foods; Z79.84 Long term (current) use of oral hypoglycemic drugs; Z79.01 Long term (current) use of anticoagulants; Z79.899 Other long term (current) drug therapy; Z82.49 Family history of ischemic heart disease and other diseases of the circulatory system; Z83.3 Family history of diabetes mellitus; R07.89 Other chest pain; D64.9 Anemia, unspecified; Z87.39 Personal history of other diseases of the musculoskeletal system and connective tissue; I08.0 Rheumatic disorders of both mitral and aortic valves
CPT/HCPCS: 36410; 36415; 71045-TC; 75574; 80048-TC; 80061-TC; 80076-TC; 83735-TC; 84100-TC; 84443-TC; 84484-TC; 85025-TC; 85378-TC; 87081-TC; 93307-TC; C9803; G0378; J1200; J2270; J2930; J3490; J7050; Q9967

== ENCOUNTER 2021-10-04 21:10 | Emergency (ER) | payer MEDICARE, OTHER ==
[~2021-10-04] VITALS: Ht 172.7 cm; Wt 88.9 kg
--- NOTE | 2021-10-04 21:40 | NUR ---
PATIENT WAS BIBS WITH COMPLAINTS OF AN 8/10 LEFT SIDED PRESSURE/CHEST PAIN RADIAITNG TO NECK. PATIENT IS AA0 X 4, RESPIRATIONS UNLABORED. PATIENT STATES PAIN BEGAN 3 HOURS AGO. PATIENT WAS SEEN AND EXAMINED BY DR ALVAREZ. PATIENT ATTACHED TO MONITOR AND PULSE OX. WILL CONT TO MONITOR
--- NOTE | 2021-10-04 22:05 | NUR ---
AUTOMOBILE CONTRACT CLERK AT BEDSIDE, BLOOD DRAWN
[2021-10-04] MEDS ORDERED: ASPIRIN 325 MG TABLET PO ONE (22:30)
[2021-10-04] MEDS ORDERED: NITROGLYCERIN 0.4 MG/TAB BOTTLE SL ONE (22:30)
[2021-10-04] MEDS ORDERED: NITROGLYCERIN 0.4 MG/TAB BOTTLE ONE (22:37)
[2021-10-04] MEDS ORDERED: ASPIRIN 325 MG TABLET ONE (22:37)
[2021-10-04 22:39] LABS: BASOPHILS % (AUTO) 0.4 % (0.0-2.0); EOSINOPHILS % (AUTO) 1.8 % (0.0-6.0); HEMATOCRIT 39 % (39-51); HEMOGLOBIN 12.3 g/dL (13.5-17.5); LYMPHOCYTES # (AUTO) 1.3 K/uL (0.8-4.8); LYMPHOCYTES % (AUTO) 14.5 % (20.0-44.0); MEAN CORPUSCULAR HGB CONC 32 g/dl (31.0-36.0); MEAN CORPUSCULAR VOLUME 88 fL (80-96); MONOCYTES # (AUTO) 0.6 K/uL (0.1-1.30); MONOCYTES % (AUTO) 7.3 % (2.0-12.0); NEUTROPHILS # (AUTO) 6.6 K/uL (1.8-8.9); PLATELET COUNT (AUTO) 175 K/uL (150-450); RED BLOOD CELL COUNT(AUTO) 4.37 MIL/uL (4.5-6.0); WHITE BLOOD COUNT (AUTO) 8.7 K/uL (4.3-11.0)
[2021-10-04 23:02] LABS: CARBON DIOXIDE 23 mmol/L (21-32); CHLORIDE 108 mmol/L (98-107); CREATININE 1.3 mg/dL (0.6-1.3); GLUCOSE 145 mg/dL (74-106); POTASSIUM 3.9 mmol/L (3.5-5.1); SODIUM SERUM 141 mmol/L (136-145); UREA NITROGEN, BLOOD 15 mg/dL (7-18)
--- NOTE | 2021-10-04 23:23 | NUR ---
MRSA AND COVID ANTIGEN SWAB COLLECTED, SENT TO LAB
--- NOTE | 2021-10-05 00:25 | NUR ---
LINE RIDER AT BEDSIDE
--- NOTE | 2021-10-05 01:50 | NUR ---
IV LINE ESTABLISHED AT L HAND 22G, BLOOD DRAWN, SENT TO LAB
--- NOTE | 2021-10-05 08:00 | NUR ---
IV removed. Catheter intact and site benign. Pressure and 4x4 applied to site. No bleeding noted.Patient discharged to home in stable condition. Written and verbal after care instructions given. Patient verbalizes understanding of instruction.
[2021-10-05 08:01] VITALS: BP 117/80
[2021-10-05 10:17] LABS: CALCIUM, SERUM 10.2 mg/dL (8.5-10.1)
== END 2021-10-05 08:04 | disposition home or self-care (01) ==
LOC: ER 21:26
DX: R07.9 Chest pain, unspecified (principal); Z76.5 Malingerer [conscious simulation]; Z20.822 Contact with and (suspected) exposure to COVID-19; Z86.711 Personal history of pulmonary embolism; E78.5 Hyperlipidemia, unspecified; I45.9 Conduction disorder, unspecified; Z95.0 Presence of cardiac pacemaker; E11.9 Type 2 diabetes mellitus without complications; Z79.84 Long term (current) use of oral hypoglycemic drugs; Z88.6 Allergy status to analgesic agent; Z91.041 Radiographic dye allergy status; Z91.013 Allergy to seafood; Z91.018 Allergy to other foods; Z83.3 Family history of diabetes mellitus; Z79.01 Long term (current) use of anticoagulants; Z79.899 Other long term (current) drug therapy
CPT/HCPCS: 36415; 71045-TC; 80048-TC; 84484-TC; 85025-TC; C9803

== ENCOUNTER 2022-05-29 08:46 | Inpatient (IN) | payer MEDICARE, MEDICAID ==
[~2022-05-29] VITALS: Ht 172.7 cm; Wt 88.5 kg
[2022-05-29 09:41] LABS: BASOPHILS % (AUTO) 0.3 % (0.0-2.0); EOSINOPHILS % (AUTO) 3.3 % (0.0-6.0); HEMATOCRIT 42 % (39-51); HEMOGLOBIN 13.5 g/dL (13.5-17.5); LYMPHOCYTES # (AUTO) 1.2 K/uL (0.8-4.8); LYMPHOCYTES % (AUTO) 21.1 % (20.0-44.0); MEAN CORPUSCULAR HGB CONC 32 g/dl (31.0-36.0); MEAN CORPUSCULAR VOLUME 89 fL (80-96); MONOCYTES # (AUTO) 0.6 K/uL (0.1-1.30); MONOCYTES % (AUTO) 10.6 % (2.0-12.0); NEUTROPHILS # (AUTO) 3.7 K/uL (1.8-8.9); NEUTROPHILS % (AUTO) 64.7 % (43.0-81.0); PLATELET COUNT (AUTO) 176 K/uL (150-450); RED BLOOD CELL COUNT(AUTO) 4.76 MIL/uL (4.5-6.0); WHITE BLOOD COUNT (AUTO) 5.8 K/uL (4.3-11.0)
[2022-05-29 09:50] LABS: CALCIUM, SERUM 9.2 mg/dL (8.5-10.1); CARBON DIOXIDE 28 mmol/L (21-32); CHLORIDE 107 mmol/L (98-107); CREATININE 1.1 mg/dL (0.6-1.3); GLUCOSE 85 mg/dL (74-106); POTASSIUM 3.6 mmol/L (3.5-5.1); SODIUM SERUM 141 mmol/L (136-145); UREA NITROGEN, BLOOD 12 mg/dL (7-18)
--- NOTE | 2022-05-29 10:36 | NUR ---
CALLED NURSE SUP FOR MIDLINE
--- NOTE | 2022-05-29 10:46 | NUR ---
COVID SWAB DONE AND SENT TO LAB
--- NOTE | 2022-05-29 11:10 | NUR ---
MOVE SHEET SUBMITTED.
--- NOTE | 2022-05-29 11:39 | NUR ---
FOLLOWED UP MIDLINE NURSE, NO ETA YET PER SEBASTIÁN
--- NOTE | 2022-05-29 12:01 | NUR ---
CALLED [facility] COLEMAN
--- NOTE | 2022-05-29 12:34 | NUR ---
PER NURSE SUP MIDLINE ETA 1HR
--- NOTE | 2022-05-29 13:13 | NUR ---
MIDLINE NURSE AT BEDSIDE FOR MIDLINE INSERTION
--- NOTE | 2022-05-29 13:41 | NUR ---
CALLED NURSING SUP FOR BED.
[2022-05-29] MEDS ORDERED: ONDANSETRON HCL/PF 4 MG/2 ML VIAL IVP PRN (14:30)
[2022-05-29] MEDS ORDERED: MORPHINE SULFATE INJ 2 MG/ML DISP.SYRIN ONE (14:33)
[2022-05-29] MEDS: MORPHINE SULFATE INJ 2 MG/ML DISP.SYRIN IV PRN ×2 (14:45→21:59)
--- NOTE | 2022-05-29 15:01 | NUR ---
BED 324-2
--- NOTE | 2022-05-29 15:07 | NUR ---
REPORT GIVEN TO ELSI BAEZ FOR YURY
--- NOTE | 2022-05-29 16:00 | NUR ---
TRANSFERRED TO BED 324 IN STABLE CONDITION
--- NOTE | 2022-05-29 17:00 | NUR ---
ADMITTING NOTES: ADMITTED A 67YO MALE PATIENT FROM EMERGENCY ROOM @ 1600, ACCOMPANIED BY RN AND TRANSPORTER. NO SOB OR CARDIAC DISTRESS NOTED, DENIES CHEST PAIN AT THIS TIME. ON TELE MONITOR WITH CURRENT READING SR 78BPM . IV ACCESS ON JOVANNI MIDLINE GAUGE 18, PATENT, INTACT AND SL. BODY ASSESSMENT DONE WITH NO SKIN ISSUES NOTED. ALL BELONGINGS LISTED.ORIENTED TO UNIT, STAFFS AND ROOM MATE. SAFETY MEASURES INITIATED: BED LOCKED AND IN LOWEST POSITION, SIDE RAILS UP X 2. CALL LIGHT AND BED SIDE TABLE IN EASY REACH. WILL MONITOR PT ACCORDINGLY.
[2022-05-29] MEDS: METOPROLOL TARTRATE 25 MG TABLET PO SCH (17:21)
[2022-05-29] MEDS: METFORMIN 500 MG TABLET PO SCH (17:21)
[2022-05-29] MEDS: APIXABAN 5 MG TABLET PO SCH (17:22)
[2022-05-29] MEDS: BRIMONIDINE TARTRATE OPHT SOLN 5 ML BOTTLE EACHEYE SCH (17:23)
[2022-05-29] MEDS: TIMOLOL MAL/DORZOLAM HCL OPHTH 10 ML BOTTLE EACHEYE SCH (17:57)
--- NOTE | 2022-05-29 19:00 | NUR ---
CIVIL ENGINEERING PROFESSIONAL CLOSING NOTES: PT IN BED AWAKE, A/O X 4 AND ABLE TO VERBALIZED NEEDS. NO SOB OR CARDIAC DISTRESS NOTED. IV ACCESS ON JOVANNI ML GAUGE 18, PATENT INTACT AND SL.SAFETY MEASURES MAINTAINED: BED LOCKED AND IN LOWEST POSITION, SIDE RAILS UP X 2. CALL LIGHT AND BED SIDE TABLE IN EASY REACH. WILL MONITOR PT ACCORDINGLY. ENDORSED TO NOC SHIFT FOR YURY.
--- NOTE | 2022-05-29 19:50 | NUR ---
TURN DOWN ATTENDANT OPENING NOTES: RECEIVED PATIENT AWAKE IN BED, BED IN LOW POSITION CALL LIGHTS WITHIN REACH, NO COMPLAIN OF PAIN AND DISCOMFORT AT THIS TIME , ON ROOM AIR SATURATING WELL. PATIENT IS A/O X4 AMBULATORY , ABLE TO MAKE NEEDS KNOWN, ON TELE MONITOR- A PACING 60, IV LINE AT GRETEL ML SL, PATIENT KEPT CLEAN AND DRY ALL NEEDS MET WILL CONTINUE TO MONITOR.
[2022-05-29 20:00] VITALS: BP 141/76
[2022-05-29 20:39] VITALS: BP 141/76
[2022-05-29] MEDS: ATORVASTATIN 10 MG TABLET PO SCH (21:57)
[2022-05-29] MEDS: TAMSULOSIN 0.4 MG CAP.SR.24H PO SCH (21:57)
[2022-05-29] MEDS: LATANOPROST EYE DROP 0.005% 2.5 ML BOTTLE EACHEYE SCH (22:00)
--- NOTE | 2022-05-29 22:07 | NUR ---
RN NOTES: LATANOPROST EYEDROPS NOT YET AVAILABLE
[2022-05-30] VITALS (7 sets, daily range): BP systolic 104–144; BP diastolic 68–76
[2022-05-30] MEDS: MORPHINE SULFATE INJ 2 MG/ML DISP.SYRIN IV PRN ×4 (02:05→21:45)
--- NOTE | 2022-05-30 06:39 | NUR ---
APPLICATION DEVELOPMENT INTERN CLOSING NOTES: RECEIVED PATIENT SLEEP IN BED COMFORTABLY AROUSABLE TO VERBAL STIMULI, BED IN LOW POSITION CALL LIGHTS WITHIN REACH, NO COMPLAIN OF PAIN AND DISCOMFORT AT THIS TIME, ON ROOM AIR SATURATING WELL, PATIENT IS A/O X4 ABLE TO MAKE NEEDS KNOWN, ON TELE MONITOR V PACING -60 NO SYMPTOMS WAS OBSERVED, PATIENT KEPT CLEAN AND DRY ALL NEEDS MET ENDORSE TO INCOMING SHIFT.
--- NOTE | 2022-05-30 08:00 | NUR ---
PHARMACY MANAGER OPENING NOTES: PATIENT LAYING IN BED, A/O X 4, ABLE TO MAKE NEEDS KNOWN, TOLERATING WELL ON ROOM AIR WITH NO S/S RESPIRATORY DISTRESS. TELE MONITOR IN PLACE READING V PACING 64. GRETEL MIDLINE IN PLACE CLEAN, INTACT, AND FLUSHING. SAFETY MEASURES IN PLACE: BED IN LOWEST LOCKED POSITION, SIDE RAILS UP X 2, CALL LIGHT WITHIN REACH. WILL CONTINUE TO MONITOR.
[2022-05-30] MEDS: METOPROLOL TARTRATE 25 MG TABLET PO SCH ×2 (09:00→17:23)
[2022-05-30] MEDS: TIMOLOL MAL/DORZOLAM HCL OPHTH 10 ML BOTTLE EACHEYE SCH ×2 (09:00→17:15)
[2022-05-30] MEDS: BRIMONIDINE TARTRATE OPHT SOLN 5 ML BOTTLE EACHEYE SCH ×2 (09:00→17:00)
--- NOTE | 2022-05-30 09:30 | NUR ---
MS RN NOTES PATIENT TRANSFERRED TO MED/SURG STATUS PER MD. PATIENT COMPLAINT OF LEFT ARM PAIN AND REQUESTING PAIN MEDICATION. 1 MG MORPHINE IVP ADMINISTERED ORDERED. WILL CONTINUE TO MONITOR FOR S/S PAIN.
[2022-05-30] MEDS: METFORMIN 500 MG TABLET PO SCH ×2 (09:31→17:24)
[2022-05-30] MEDS: APIXABAN 5 MG TABLET PO SCH ×2 (09:44→17:23)
--- NOTE | 2022-05-30 10:53 | NUR ---
MS RN NOTES REPORT GIVEN TO NESTOR SALINAS AND ALL CARE ENDORSED
[2022-05-30] MEDS: NITROGLYCERIN 0.4 MG/TAB BOTTLE SL PRN (13:13)
--- NOTE | 2022-05-30 13:19 | NUR ---
RN NOTE PATIENT IS COMPLAINING OF CHEST PAIN LEVEL 7/10. PATIENT REQUESTED TO INCREASE MORPHINE DOSE. CHARGE NURSE AWARE.
[2022-05-30 14:35] LABS: BASOPHILS % (AUTO) 0.4 % (0.0-2.0); EOSINOPHILS % (AUTO) 3.7 % (0.0-6.0); HEMATOCRIT 38 % (39-51); HEMOGLOBIN 12.3 g/dL (13.5-17.5); LYMPHOCYTES # (AUTO) 1.2 K/uL (0.8-4.8); LYMPHOCYTES % (AUTO) 20.6 % (20.0-44.0); MEAN CORPUSCULAR HGB CONC 32 g/dl (31.0-36.0); MEAN CORPUSCULAR VOLUME 89 fL (80-96); MONOCYTES # (AUTO) 0.6 K/uL (0.1-1.30); MONOCYTES % (AUTO) 10.7 % (2.0-12.0); NEUTROPHILS # (AUTO) 3.8 K/uL (1.8-8.9); NEUTROPHILS % (AUTO) 64.6 % (43.0-81.0); PLATELET COUNT (AUTO) 139 K/uL (150-450); RED BLOOD CELL COUNT(AUTO) 4.29 MIL/uL (4.5-6.0); WHITE BLOOD COUNT (AUTO) 5.8 K/uL (4.3-11.0)
[2022-05-30 14:56] LABS: CALCIUM, SERUM 8.8 mg/dL (8.5-10.1); POTASSIUM 4.2 mmol/L (3.5-5.1)
[2022-05-30] MEDS: LATANOPROST EYE DROP 0.005% 2.5 ML BOTTLE EACHEYE SCH (17:15)
--- NOTE | 2022-05-30 19:19 | NUR ---
RN CLOSING NOTE PATIENT LAYING IN BED, A/O X 4, ABLE TO MAKE NEEDS KNOWN, TOLERATING WELL ON ROOM AIR WITH NO S/S RESPIRATORY DISTRESS. GRETEL MIDLINE IN PLACE CLEAN, INTACT, AND FLUSHING. SAFETY MEASURES IN PLACE: BED IN LOWEST LOCKED POSITION, SIDE RAILS UP X 2, CALL LIGHT WITHIN REACH. WILL ENDORSE CONTINUITY OF CARE TO SHEETMETAL WORKER NURSE. Addendum: 05/30/22 at 1920 by RITA MORELOS RN IV ACCESS CORRECTION: LEFT UPPER ARM MIDLINE.
--- NOTE | 2022-05-30 20:12 | NUR ---
MS RN OPENING NOTES: RECEIVED PATIENT AWAKE IN BED, BED IN LOW POSITION CALL LIGHTS WITHIN REACH, NO COMPLAIN OF PAIN AND DISCOMFORT AT THIS TIME, ON ROOM AIR SATURATING WELL, PATIENT IA A/OX4 AMBULATORY, ABLE TO MAKE NEEDS KNOWN, PATIENT KEPT CLEAN AND DRY ALL NEEDS MET WILL CONTINUE TO MONITOR.
[2022-05-30] MEDS: ATORVASTATIN 10 MG TABLET PO SCH (21:44)
[2022-05-30] MEDS: TAMSULOSIN 0.4 MG CAP.SR.24H PO SCH (21:44)
[2022-05-31] MEDS: MORPHINE SULFATE INJ 2 MG/ML DISP.SYRIN IV PRN ×3 (01:49→17:35)
--- NOTE | 2022-05-31 06:10 | NUR ---
MS RN CLOSING NOTES: RECEIVED PATIENT SLEEP IN BED COMFORTABLY, AROUSABLE TO VERBAL STIMULI, BED IN LOW POSITION CALL LIGHTS WITHIN REACH, NO COMPLAIN OF PAIN AND DISCOMFORT AT THIS TIME, ON ROOM AIR SATURATING WELL, PATIENT IS A/OX4 AMBULATORY ABLE TO MAKE NEEDS KNOWN PATIENT KEPT CLEAN AND DRY ALL NEEDS MET ENDORSE TO INCOMING SHIFT.
[2022-05-31 08:00] VITALS: BP 123/71
[2022-05-31] MEDS: METFORMIN 500 MG TABLET PO SCH ×2 (09:13→17:36)
[2022-05-31] MEDS: METOPROLOL TARTRATE 25 MG TABLET PO SCH ×2 (09:14→17:37)
[2022-05-31] MEDS: APIXABAN 5 MG TABLET PO SCH ×2 (09:15→17:38)
[2022-05-31] MEDS: TIMOLOL MAL/DORZOLAM HCL OPHTH 10 ML BOTTLE EACHEYE SCH ×2 (09:18→17:40)
[2022-05-31] MEDS: LATANOPROST EYE DROP 0.005% 2.5 ML BOTTLE EACHEYE SCH ×2 (09:18→22:23)
[2022-05-31] MEDS: BRIMONIDINE TARTRATE OPHT SOLN 5 ML BOTTLE EACHEYE SCH ×2 (12:02→17:39)
[2022-05-31] MEDS: ACETAMINOPHEN 325 MG TABLET PO PRN (14:36)
[2022-05-31 16:00] VITALS: BP 131/75
[2022-05-31 20:00] VITALS: BP 103/52
--- NOTE | 2022-05-31 20:12 | NUR ---
MS RN CLOSING NOTES: RECEIVED PATIENT SLEEP IN BED COMFORTABLY, AROUSABLE TO VERBAL STIMULI, BED IN LOW POSITION CALL LIGHTS WITHIN REACH, NO COMPLAIN OF PAIN AND DISCOMFORT AT THIS TIME, ON ROOM AIR SATURATING WELL, PATIENT IS A/OX4 ABLE TO MAKE NEEDS KNOWN, AMBULATORY, WITH GRETEL ML SL, PATIENT KEPT CLEAN AND DRY ALL NEEDS MET WILL CONTINUE TO MONITOR.
[2022-05-31] MEDS: ATORVASTATIN 10 MG TABLET PO SCH (22:20)
[2022-05-31] MEDS: TAMSULOSIN 0.4 MG CAP.SR.24H PO SCH (22:20)
[2022-06-01] MEDS: MORPHINE SULFATE INJ 2 MG/ML DISP.SYRIN IV PRN (01:49)
[2022-06-01 08:00] VITALS: BP 130/78
[2022-06-01] MEDS ORDERED: IBUPROFEN 400 MG TABLET PO PRN (08:00)
[2022-06-01] MEDS: METOPROLOL TARTRATE 25 MG TABLET PO SCH ×3 (08:19→17:10)
[2022-06-01] MEDS: METFORMIN 500 MG TABLET PO SCH ×3 (08:19→17:10)
[2022-06-01] MEDS: APIXABAN 5 MG TABLET PO SCH ×3 (08:21→17:14)
[2022-06-01] MEDS: BRIMONIDINE TARTRATE OPHT SOLN 5 ML BOTTLE EACHEYE SCH ×3 (09:00→17:22)
[2022-06-01] MEDS: TIMOLOL MAL/DORZOLAM HCL OPHTH 10 ML BOTTLE EACHEYE SCH ×3 (09:43→17:22)
--- NOTE | 2022-06-01 09:45 | NUR ---
MS RN opening note pt alert and oriented x4. able to make needs, verbally responsive. no signs of pain/discomfort at this time.pt on room air tolerating well. pt is ambulatory and independent.iv intact, patent and flushing well. all safety measures in place.call light within reach. bed locked at lowest position. side rails up x2. bedside table next to pt.
[2022-06-01 10:48] VITALS: BP 130/78
[2022-06-01] MEDS: NITROGLYCERIN 0.4 MG/TAB BOTTLE SL PRN ×2 (11:52→19:52)
[2022-06-01 16:00] VITALS: BP 133/75
--- NOTE | 2022-06-01 19:03 | NUR ---
ms rn closing note pt a/0 x4. due medications given. verbally responsive and no signs of pain/discomfort at this time.iv intact, patent and flushing well. pt ambulatory and independent. all safety measures in place. bed locked in lowest position. side rails up x2. call light within reach
--- NOTE | 2022-06-01 19:30 | NUR ---
MS RN OPENING NOTES RECEIVED PATIENT IN BED AWAKE. A/O X4. BREATHING EVEN AND NON-LABORED ON ROOM AIR. NOT IN APPARENT DISTRESS. C/O MILD CHEST PAIN. HAS LEFT UPPER ARM MIDLINE AND SALINE LOCKED. NO S/S OF INFILTRATION NOTED. PATIENT VERBALIZED HE DOES NOT HAVE ANY OPEN WOUND OR SKIN ISSUES. SAFETY PRECAUTIONS IN PLACE: BED LOW AND LOCKED, SIDE RAILS UP X2, CALL LIGHT WITHIN REACH. WILL CONTINUE POC.
--- NOTE | 2022-06-01 19:56 | NUR ---
MS RN NOTES PATIENT C/O MILD CHEST PAIN. PRN NITROSTAT SL GIVEN AND TOLERATED WELL. WILL CONTINUE TO MONITOR.
[2022-06-01 20:02] VITALS: BP 103/70
[2022-06-01] MEDS: TAMSULOSIN 0.4 MG CAP.SR.24H PO SCH (21:04)
[2022-06-01] MEDS: ATORVASTATIN 10 MG TABLET PO SCH (21:04)
[2022-06-01] MEDS: LATANOPROST EYE DROP 0.005% 2.5 ML BOTTLE EACHEYE SCH (21:05)
[2022-06-02] MEDS: ACETAMINOPHEN 325 MG TABLET PO PRN ×4 (03:41→22:09)
--- NOTE | 2022-06-02 03:44 | NUR ---
MS RN NOTES PATIENT C/O CHEST AND BACK PAIN. OFFERED NITROSTAT SL FOR HIS CHEST PAIN. VERBALIZED HE WANTS TO TRY TYLENOL FIRST AND HE WILL LET ME KNOW. WILL CONTINUE TO MONITOR.
--- NOTE | 2022-06-02 07:05 | NUR ---
MS RN CLOSING NOTES PATIENT IN BED ASLEEP, EASY TO AROUSE. ABLE TO VERBALIZE NEEDS. STABLE THROUGHOUT THE SHIFT. NOT IN CARDIAC OR RESPIRATORY DISTRESS. NO C/O PAIN AT THIS TIME. LEFT UPPER ARM MIDLINE INTACT, PATENT AND FLUSHING. ALL DUE MEDS GIVEN AND NEEDS ATTENDED. SAFETY PRECAUTIONS MAINTAINED. WILL ENDORSE TO NEXT SHIFT FOR YURY.
--- NOTE | 2022-06-02 07:55 | NUR ---
RN OPENING NOTE PATIENT IN BED ASLEEP, EASILY AWAKENED, INTERACTIVE. A/O X4. BREATHING EVEN AND NON-LABORED ON ROOM AIR. NOT IN APPARENT DISTRESS. DENIES CHEST PAIN. HAS LEFT UPPER ARM MIDLINE AND SALINE LOCKED. NO S/S OF INFILTRATION NOTED.CHEST CLEAR. BOWEL SOUNDS POSITIVE. SAFETY PRECAUTIONS IN PLACE: BED LOW AND LOCKED, SIDE RAILS UP X2, CALL LIGHT WITHIN REACH. WILL CONTINUE POC.
[2022-06-02 08:00] VITALS: BP 139/60
[2022-06-02] MEDS: METOPROLOL TARTRATE 25 MG TABLET PO SCH ×2 (08:43→17:02)
[2022-06-02] MEDS: METFORMIN 500 MG TABLET PO SCH ×2 (08:43→17:03)
[2022-06-02] MEDS: APIXABAN 5 MG TABLET PO SCH ×2 (08:44→17:01)
[2022-06-02] MEDS: TIMOLOL MAL/DORZOLAM HCL OPHTH 10 ML BOTTLE EACHEYE SCH ×2 (08:49→17:04)
[2022-06-02] MEDS: BRIMONIDINE TARTRATE OPHT SOLN 5 ML BOTTLE EACHEYE SCH ×2 (08:52→17:24)
--- NOTE | 2022-06-02 08:55 | NUR ---
RN NOTE PT COMPLAINED OF GENERALIZED PAIN. TYLENOL 650MG GIVEN.
[2022-06-02 16:00] VITALS: BP_SYST 134; BP_SYST 154; BP_DIAS 77; BP_DIAS 84
--- NOTE | 2022-06-02 18:40 | NUR ---
RN CLOSING NOTE PATIENT LAYING IN BED, A/OX4. ABLE TO VERBALIZE NEEDS. STABLE THROUGHOUT THE SHIFT. NOT IN CARDIAC OR RESPIRATORY DISTRESS. NO C/O PAIN AT THIS TIME. LEFT UPPER ARM MIDLINE INTACT, PATENT AND FLUSHING. ALL DUE MEDS GIVEN AND NEEDS ATTENDED. SAFETY MEASURES MAINTAINED: BED LOCKED AND IN LOWEST POSITION, SIDE RAILS UP X2. CALL LIGHT AND BED SIDE TABLE IN EASY REACH. WILL MONITOR PT ACCORDINGLY. ENDORSED TO BREEDER SERVICE TECHNICIAN FOR YURY.
--- NOTE | 2022-06-02 19:32 | NUR ---
RN OPENING NOTE RECEIVED PATIENT IN BED AA/O X4.ABLE TO MAKE NEEDS KNOWN,ON RM AIR ARIANNA WELL,NO SIGN SOB/DISTRESS NOTED,NO COMPLAIN OF PAIN/DISCOMFORT AT THIS TIME,IV ACCESS ON LEFT UPPER ARM MIDLINE AND SALINE LOCKED.PATENT AND INTACT,SAFETY PRECAUTIONS IN PLACE: BED LOW AND LOCKED, SIDE RAILS UP X2, CALL LIGHT WITHIN REACH. WILL CONTINUE TO MONITOR.
[2022-06-02 20:00] VITALS: BP 107/65
[2022-06-02] MEDS: ATORVASTATIN 10 MG TABLET PO SCH (21:41)
[2022-06-02] MEDS: TAMSULOSIN 0.4 MG CAP.SR.24H PO SCH (21:41)
[2022-06-02] MEDS: LATANOPROST EYE DROP 0.005% 2.5 ML BOTTLE EACHEYE SCH (22:01)
--- NOTE | 2022-06-03 06:24 | NUR ---
RN CLOSING NOTE; PATIENT IN BED AA/O X4.ABLE TO MAKE NEEDS KNOWN,ON RM AIR ARIANNA WELL,NO SIGN SOB/DISTRESS NOTED,NO COMPLAIN OF PAIN/DISCOMFORT DURING SHIFT,DUE MEDS GIVEN ORDER,ALL NEEDS ATTENDED,IV ACCESS ON LEFT UPPER ARM MIDLINE AND SALINE LOCKED.PATENT AND INTACT,SAFETY PRECAUTIONS IN PLACE: BED LOW AND LOCKED, SIDE RAILS UP X2, CALL LIGHT WITHIN REACH. WILL ENDORSED TO NEXT SHIFT.
--- NOTE | 2022-06-03 07:40 | NUR ---
RN OPENING NOTE PATIENT IN BED ASLEEP, EASILY AWAKENED, INTERACTIVE. A/O X4. BREATHING EVEN AND NON-LABORED ON ROOM AIR. NO S/S OF DISTRESS. DENIES CHEST PAIN. HAS LEFT UPPER ARM MIDLINE AND SALINE LOCKED. NO S/S OF INFILTRATION NOTED.CHEST CLEAR. SAFETY PRECAUTIONS IN PLACE: BED LOW AND LOCKED, SIDE RAILS UP X2, CALL LIGHT WITHIN REACH. WILL CONTINUE POC.
[2022-06-03 08:00] VITALS: BP 124/60
[2022-06-03] MEDS: APIXABAN 5 MG TABLET PO SCH (09:11)
[2022-06-03] MEDS: METFORMIN 500 MG TABLET PO SCH (09:11)
[2022-06-03 09:12] VITALS: BP 124/60
[2022-06-03] MEDS: METOPROLOL TARTRATE 25 MG TABLET PO SCH (09:12)
[2022-06-03] MEDS: TIMOLOL MAL/DORZOLAM HCL OPHTH 10 ML BOTTLE EACHEYE SCH (09:22)
[2022-06-03] MEDS: BRIMONIDINE TARTRATE OPHT SOLN 5 ML BOTTLE EACHEYE SCH (09:22)
--- NOTE | 2022-06-03 11:00 | NUR ---
RN NOTE PT DISCHARGED AT THIS TIME. VS STABLE. A/OX4. MEDICALLY CLEARED. LEFT UPPER ARM MIDLINE REMOVED. ID WRIST BAND REMOVED. AFTER CARE REVIEWD AND UNDERSTOOD. ESCORTED OFF UNIT TO WAITING FRIEND IN LOBBY.
== END 2022-06-03 10:30 | disposition home or self-care (01) | DRG 206 ==
LOC: ER 08:52 → TELE 15:20 → MED 05-30 11:11
PROVIDERS: ADMIT Internal Medicine; ATTEND Internal Medicine
PROC: 05HA33Z Insertion of Infusion Device into Left Brachial Vein, Percutaneous Approach (ICD-10-PCS; principal; 2022-05-29)
DX: M94.0 Chondrocostal junction syndrome [Tietze] (principal); E11.9 Type 2 diabetes mellitus without complications; D64.9 Anemia, unspecified; E78.5 Hyperlipidemia, unspecified; Z20.822 Contact with and (suspected) exposure to COVID-19; Z86.711 Personal history of pulmonary embolism; I10 Essential (primary) hypertension; Z79.84 Long term (current) use of oral hypoglycemic drugs; H40.9 Unspecified glaucoma; Z95.828 Presence of other vascular implants and grafts; Z95.0 Presence of cardiac pacemaker; Z98.890 Other specified postprocedural states; Z91.041 Radiographic dye allergy status; Z88.5 Allergy status to narcotic agent; Z91.013 Allergy to seafood; Z91.018 Allergy to other foods; Z79.4 Long term (current) use of insulin; Z79.899 Other long term (current) drug therapy; Z79.01 Long term (current) use of anticoagulants; Z82.49 Family history of ischemic heart disease and other diseases of the circulatory system; Z83.3 Family history of diabetes mellitus; N40.0 Benign prostatic hyperplasia without lower urinary tract symptoms
CPT/HCPCS: 36415; 71045-TC; 80048-TC; 82962-TC; 84484-TC; 85025-TC; 87081-TC; 93307-TC; C9803; G0378; J2270

== ENCOUNTER 2022-07-30 22:44 | Emergency (ER) | payer MEDICARE, OTHER ==
[~2022-07-30] VITALS: Ht 175.3 cm; Wt 88.5 kg
[~2022-07-30 22:44] MED LIST changes: -DUTA0.5C PO
--- NOTE | 2022-07-30 23:23 | NUR ---
TO ER BED 9. BIBS. LEFT CHEST PAIN RADIATING TO L ARM 8/10 PRESSURE INTERMITENT X 3 HRS . PT IS ALERT AND ORIENTED. RR EVEN AND NONLABORED. CONNECTED TO POX AND HEART MONITOR
--- NOTE | 2022-07-30 23:24 | NUR ---
EMT AT BEDSIDE FOR EKG
--- NOTE | 2022-07-30 23:24 | NUR ---
BLOOD COLLECTED AND SENT TO LAB
--- NOTE | 2022-07-30 23:42 | NUR ---
XRAY AT BEDSIDE
[2022-07-31] MEDS ORDERED: ACETAMINOPHEN 325 MG TABLET PO ONE
[2022-07-31] MEDS ORDERED: ACETAMINOPHEN 325 MG TABLET ONE (00:11)
[2022-07-31 00:15] LABS: BASOPHILS % (AUTO) 0.3 % (0.0-2.0); EOSINOPHILS % (AUTO) 2.9 % (0.0-6.0); HEMATOCRIT 44 % (39-51); LYMPHOCYTES # (AUTO) 1.3 K/uL (0.8-4.8); LYMPHOCYTES % (AUTO) 18.9 % (20.0-44.0); MEAN CORPUSCULAR HGB CONC 32 g/dl (31.0-36.0); MEAN CORPUSCULAR VOLUME 90 fL (80-96); MONOCYTES # (AUTO) 0.7 K/uL (0.1-1.30); MONOCYTES % (AUTO) 10.2 % (2.0-12.0); NEUTROPHILS # (AUTO) 4.6 K/uL (1.8-8.9); NEUTROPHILS % (AUTO) 67.7 % (43.0-81.0); PLATELET COUNT (AUTO) 140 K/uL (150-450); RED BLOOD CELL COUNT(AUTO) 4.86 MIL/uL (4.5-6.0); WHITE BLOOD COUNT (AUTO) 6.7 K/uL (4.3-11.0)
[2022-07-31 00:52] LABS: CALCIUM, SERUM 9.6 mg/dL (8.5-10.1); CARBON DIOXIDE 24 mmol/L (21-32); CHLORIDE 104 mmol/L (98-107); CREATININE 1.1 mg/dL (0.6-1.3); GLUCOSE 113 mg/dL (74-106); POTASSIUM 3.7 mmol/L (3.5-5.1); SODIUM SERUM 135 mmol/L (136-145); UREA NITROGEN, BLOOD 16 mg/dL (7-18)
[2022-07-31 00:58] LABS: ALANINE AMINOTRANSFERASE 13 U/L (12-78); ALBUMIN 3.6 g/dL (3.4-5.0); ALKALINE PHOSPHATASE 70 U/L (46-116); ASPARTATE AMINOTRANSFERASE 16 U/L (15-37); BILIRUBIN,DIRECT 0.1 mg/dL (0.0-0.2); BILIRUBIN,TOTAL 0.5 mg/dL (0.2-1.0); TOTAL PROTEIN, SERUM 7.3 g/dL (6.4-8.2)
--- NOTE | 2022-07-31 03:44 | NUR ---
Patient discharged to home in stable condition. Written and verbal after care instructions given. Patient verbalizes understanding of instruction.
[2022-07-31 03:45] VITALS: BP 123/88
== END 2022-07-31 03:53 | disposition home or self-care (01) ==
LOC: ER 22:45
DX: R07.89 Other chest pain (principal); E11.9 Type 2 diabetes mellitus without complications; Z88.8 Allergy status to other drugs, medicaments and biological substances; Z91.013 Allergy to seafood; Z60.2 Problems related to living alone; Z79.899 Other long term (current) drug therapy
CPT/HCPCS: 36415; 71045-TC; 80048-TC; 80076-TC; 84484-TC; 85025-TC; 85730-TC

== ENCOUNTER 2022-07-31 06:43 | Emergency (ER) | payer MEDICARE, OTHER ==
[~2022-07-31] VITALS: Ht 175.3 cm; Wt 88.5 kg
[2022-07-31 06:46] VITALS: BP 150/79
[2022-07-31] MEDS ORDERED: ACETAMINOPHEN ES 500 MG TABLET PO ONE (07:00)
[2022-07-31] MEDS ORDERED: ACETAMINOPHEN ES 500 MG TABLET ONE (07:03)
== END 2022-07-31 07:07 | disposition home or self-care (01) ==
LOC: ER 06:51
DX: R07.9 Chest pain, unspecified (principal); E11.9 Type 2 diabetes mellitus without complications; Z91.013 Allergy to seafood; Z88.8 Allergy status to other drugs, medicaments and biological substances; Z60.2 Problems related to living alone; Z79.899 Other long term (current) drug therapy

== ENCOUNTER 2022-09-29 19:44 | Emergency (ER) | payer MEDICARE, OTHER ==
[~2022-09-29] VITALS: Ht 172.7 cm; Wt 88.5 kg
[2022-09-29 20:20] VITALS: BP 119/70
--- NOTE | 2022-09-29 20:31 | NUR ---
DR SILVINA FLORES AT PT'S BEDSIDE FOR EVAL
--- NOTE | 2022-09-29 20:40 | NUR ---
Pt is noted in bed alert, responsive as he come from home C/O Chest pain x2hrs , Radiating to Back, Neckand Left Arm and also Dizziness. Pt care continue as awaits MD to see.
--- NOTE | 2022-09-29 21:04 | NUR ---
COVID ANTIGEN SWAB COLLECTED AND SENT TO LAB
--- NOTE | 2022-09-29 21:05 | NUR ---
Pt has been seen by MD but resfused IV Access at these hour and MD try talking to hime reasons why he needs IV and LAB work. Pt care continue as he continue to refused.
--- NOTE | 2022-09-29 21:15 | NUR ---
Patient eloped from facility. ER MD notified.
== END 2022-09-29 21:15 | disposition left against medical advice (07) ==
LOC: ER 19:55
DX: R07.89 Other chest pain (principal); E11.9 Type 2 diabetes mellitus without complications; E78.00 Pure hypercholesterolemia, unspecified; Z98.890 Other specified postprocedural states; Z60.2 Problems related to living alone; Z79.899 Other long term (current) drug therapy; Z20.822 Contact with and (suspected) exposure to COVID-19; Z79.84 Long term (current) use of oral hypoglycemic drugs; Z91.013 Allergy to seafood; Z91.040 Latex allergy status; Z88.1 Allergy status to other antibiotic agents
CPT/HCPCS: C9803

== ENCOUNTER 2023-05-27 15:33 | Emergency (ER) | payer MEDICARE, OTHER ==
[~2023-05-27] VITALS: Ht 172.7 cm; Wt 88.5 kg
[2023-05-27 16:25] LABS: BASOPHILS % (AUTO) 0.5 % (0.0-2.0); EOSINOPHILS # (AUTO) 0.1 K/uL (0.0-0.7); EOSINOPHILS % (AUTO) 1.8 % (0.0-6.0); HEMATOCRIT 41 % (39-51); HEMOGLOBIN 13.2 g/dL (13.5-17.5); LYMPHOCYTES # (AUTO) 1.5 K/uL (0.8-4.8); LYMPHOCYTES % (AUTO) 20.4 % (20.0-44.0); MEAN CORPUSCULAR HEMOGLOBIN 28 PG (26.0-33.0); MEAN CORPUSCULAR HGB CONC 32 g/dl (31.0-36.0); MEAN CORPUSCULAR VOLUME 87 fL (80-96); MONOCYTES # (AUTO) 0.6 K/uL (0.1-1.30); MONOCYTES % (AUTO) 8.7 % (2.0-12.0); NEUTROPHILS # (AUTO) 4.9 K/uL (1.8-8.9); NEUTROPHILS % (AUTO) 68.6 % (43.0-81.0); PLATELET COUNT (AUTO) 181 K/uL (150-450); RED BLOOD CELL COUNT(AUTO) 4.71 MIL/uL (4.5-6.0); RED CELL DISTRIBUTION WIDTH 18.1 % (11.5-15.0); WHITE BLOOD COUNT (AUTO) 7.1 K/uL (4.3-11.0)
[2023-05-27] MEDS ORDERED: FINA5TAB11 PO (16:40)
[2023-05-27] MEDS ORDERED: ATOR40TA PO (16:40)
[2023-05-27] MEDS ORDERED: NETA2.5D EACHEYE (16:40)
[2023-05-27 16:46] LABS: CALCIUM, SERUM 9.2 mg/dL (8.5-10.1); CARBON DIOXIDE 23 mmol/L (21-32); CHLORIDE 106 mmol/L (98-107); CREATININE 1.1 mg/dL (0.6-1.3); GLUCOSE 105 mg/dL (74-106); POTASSIUM 3.7 mmol/L (3.5-5.1); SODIUM SERUM 138 mmol/L (136-145); UREA NITROGEN, BLOOD 10 mg/dL (7-18)
[2023-05-27] MEDS ORDERED: ACETAMINOPHEN 325 MG TABLET ONE (20:08)
[2023-05-27 20:24] VITALS: BP 138/80; TEMP 98; O2SAT 98
[2023-05-27] MEDS ORDERED: ACETAMINOPHEN 325 MG TABLET PO ONE ×2 (20:30)
== END 2023-05-27 20:25 | disposition home or self-care (01) ==
LOC: ER 15:37
DX: R07.9 Chest pain, unspecified (principal); E78.5 Hyperlipidemia, unspecified; E11.9 Type 2 diabetes mellitus without complications; Z88.8 Allergy status to other drugs, medicaments and biological substances; Z91.013 Allergy to seafood; Z60.2 Problems related to living alone; Z79.84 Long term (current) use of oral hypoglycemic drugs; Z79.899 Other long term (current) drug therapy
CPT/HCPCS: 36415; 71045-TC; 80048-TC; 84484-TC; 85025-TC

== ENCOUNTER 2023-12-09 02:58 | Emergency (ER) | payer MEDICARE, MEDICAID ==
[~2023-12-09] VITALS: Ht 172.7 cm; Wt 86.2 kg
[~2023-12-09 02:58] MED LIST changes: -ATOR10TA PO; +ATOR40TA PO; +FINA5TAB11 PO; +NETA2.5D EACHEYE
[2023-12-09] MEDS ORDERED: NITROGLYCERIN 0.4 MG/TAB BOTTLE ONE (03:54)
[2023-12-09] MEDS: NITROGLYCERIN 0.4 MG/TAB BOTTLE SL ONE (04:02)
[2023-12-09 04:38] LABS: BASOPHILS % (AUTO) 0.4 % (0.0-2.0); EOSINOPHILS # (AUTO) 0.1 K/uL (0.0-0.7); EOSINOPHILS % (AUTO) 1.9 % (0.0-6.0); HEMATOCRIT 41 % (39-51); HEMOGLOBIN 12.9 g/dL (13.5-17.5); LYMPHOCYTES # (AUTO) 1.2 K/uL (0.8-4.8); LYMPHOCYTES % (AUTO) 19.9 % (20.0-44.0); MEAN CORPUSCULAR HEMOGLOBIN 30 PG (26.0-33.0); MEAN CORPUSCULAR HGB CONC 32 g/dl (31.0-36.0); MEAN CORPUSCULAR VOLUME 94 fL (80-96); MONOCYTES # (AUTO) 0.6 K/uL (0.1-1.30); MONOCYTES % (AUTO) 9.5 % (2.0-12.0); NEUTROPHILS # (AUTO) 4.1 K/uL (1.8-8.9); NEUTROPHILS % (AUTO) 68.3 % (43.0-81.0); PLATELET COUNT (AUTO) 142 K/uL (150-450); RED BLOOD CELL COUNT(AUTO) 4.32 MIL/uL (4.5-6.0); RED CELL DISTRIBUTION WIDTH 15.4 % (11.5-15.0)
[2023-12-09 04:47] LABS: CALCIUM, SERUM 9.2 mg/dL (8.5-10.1); CARBON DIOXIDE 21 mmol/L (21-32); CHLORIDE 106 mmol/L (98-107); CREATININE 1.2 mg/dL (0.6-1.3); GLUCOSE 184 mg/dL (74-106); POTASSIUM 3.8 mmol/L (3.5-5.1); SODIUM SERUM 138 mmol/L (136-145); UREA NITROGEN, BLOOD 21 mg/dL (7-18)
[2023-12-09 04:59] LABS: NT-PRO BNP 46 pg/mL (0-125)
[2023-12-09 06:54] VITALS: BP 145/84; TEMP 98.2; O2SAT 100
== END 2023-12-09 06:55 | disposition home or self-care (01) ==
LOC: ER 02:58
DX: M79.662 Pain in left lower leg (principal); M79.661 Pain in right lower leg; R07.89 Other chest pain; E78.5 Hyperlipidemia, unspecified; E11.9 Type 2 diabetes mellitus without complications; Z87.09 Personal history of other diseases of the respiratory system; Z86.69 Personal history of other diseases of the nervous system and sense organs; Z91.040 Latex allergy status; Z88.8 Allergy status to other drugs, medicaments and biological substances; Z91.013 Allergy to seafood; Z91.018 Allergy to other foods; Z60.2 Problems related to living alone
CPT/HCPCS: 36415; 71045-TC; 80048-TC; 83880; 84484-TC; 85025-TC; 93970-TC